=== PATIENT | female | born 1975 | race African-American/Black ===

== ENCOUNTER 2016-07-25 13:46 | Emergency (ER) | payer SELFPAY ==
[2016-07-25] MEDS ORDERED: IBUPROFEN 800 MG TABLET PO ONE (13:53)
[2016-07-25] MEDS ORDERED: ONDANSETRON 4 MG TAB.RAPDIS PO ONE (13:53)
[2016-07-25] MEDS ORDERED: DIPHENHYDRAMINE HCL 25 MG CAPSULE PO ONE (13:53)
--- NOTE | 2016-07-25 13:53 | ER Document Report ---
ED Medical Screen (RME) - General Stated Complaint: HEAD ACHE Mode of Arrival: Ambulatory Information source: Patient Notes: She presents to the emergency department with complaints of headache and vomitingfor 6 days. Denies hx of migraines. Took Excedrin Migraine this morning around 8:00. No history of head injury or trauma. I have greeted and performed a rapid initial assessment of this patient. A comprehensive ED assessment and evaluation of the patient, analysis of test results and completion of the medical decision making process will be conducted by additional ED providers. TRAVEL OUTSIDE OF THE [place] IN LAST 30 DAYS: No - Related Data Allergies/Adverse Reactions: No Known Allergies Allergy (Verified 07/25/16 13:51) Past Medical History GI Medical History: Reports: Hx Gastroesophageal Reflux Disease Musculoskeltal Medical History: Reports Hx Musculoskeletal Trauma - chronic back pain - Immunizations Immunizations up to date: No Hx Diphtheria, Pertussis, Tetanus Vaccination: No - UNKNOWN Physical Exam - Vital signs Vitals: Temp Pulse Resp BP Pulse Ox 98.2 F 70 14 121/83 99 07/25/16 13:50 07/25/16 13:50 07/25/16 13:50 07/25/16 13:50 07/25/16 13:50 Course - Vital Signs Vital signs: Temp Pulse Resp BP Pulse Ox 98.2 F 70 14 121/83 99 07/25/16 13:50 07/25/16 13:50 07/25/16 13:50 07/25/16 13:50 07/25/16 13:50
--- NOTE | 2016-07-25 15:00 | ER Document Report ---
ED Medical Screen (RME) - General Chief Complaint: Headache Stated Complaint: HEAD ACHE Time seen by provider: 14:58 Mode of Arrival: Ambulatory Notes: 40-year-old female presents to ED for headache with nausea vomiting for the last 6 days. She states she has never had a headache like this and she's been taken Excedrin Migraine for the last 3 days with no relief. Denies any history of injury or traumas. She states that the Zofran and Benadryl and ibuprofen she received upfront helped some but she still has a lot of pressure behind her eyes. I have greeted and performed a rapid initial assessment of this patient. A comprehensive ED assessment and evaluation of the patient, analysis of test results and completion of medical decision making process will be conducted by an additional ED providers. TRAVEL OUTSIDE OF THE [place] IN LAST 30 DAYS: No - Related Data Allergies/Adverse Reactions: No Known Allergies Allergy (Verified 07/25/16 13:51) Past Medical History - Social History Chew tobacco use (# tins/day): No Frequency of alcohol use: None Drug Abuse: None Renal/ Medical History: Denies: Hx Peritoneal Dialysis GI Medical History: Reports: Hx Gastroesophageal Reflux Disease Musculoskeltal Medical History: Reports Hx Musculoskeletal Trauma - chronic back pain - Immunizations Immunizations up to date: No Hx Diphtheria, Pertussis, Tetanus Vaccination: No - UNKNOWN Physical Exam - Vital signs Vitals: Temp Pulse Resp BP Pulse Ox 98.2 F 70 14 121/83 99 07/25/16 13:50 07/25/16 13:50 07/25/16 13:50 07/25/16 13:50 07/25/16 13:50 Course - Vital Signs Vital signs: Temp Pulse Resp BP Pulse Ox 98.2 F 70 14 121/83 99 07/25/16 13:50 07/25/16 13:50 07/25/16 13:50 07/25/16 13:50 07/25/16 13:50
--- NOTE | 2016-07-25 15:38 | ER Document Report ---
ED Headache - General Chief Complaint: Headache Stated Complaint: HEAD ACHE Mode of Arrival: Ambulatory Information source: Patient Notes: 40-year-old female presents today with the onset around 6 days ago of a mild frontal "pressure is" headache. She states it has been intermittent, without any aggravating relieving factors. Patient denies any recent trauma, neck pain , blurry vision, weakness or numbness, or fevers. She states she has had some vomiting. Patient states she had a similar episode around 2 years ago that resolved after 3-4 days. Patient does state that she has been going through a lot of stress lately because she is going through a divorce. She is unsure whether this is the cause of her headaches. TRAVEL OUTSIDE OF THE [place] IN LAST 30 DAYS: No - HPI Patient complains to provider of: Headache Patient reports: Other - See above Onset: Other - See above Onset was: Gradual Timing: Still present Quality of pain: Pressure Severity: Moderate Pain Level: 2 Context: denies: Head injury, Meningitis exposure Preceding symptoms: denies: Visual disturbance Associated symptoms: Other - See above Exacerbated by: Light, Noise Similar symptoms previously: No Recently seen / treated by doctor: No - Related Data Allergies/Adverse Reactions: No Known Allergies Allergy (Verified 07/25/16 13:51) Past Medical History - General Information source: Patient - Social History Smoking Status: Never Smoker Chew tobacco use (# tins/day): No Frequency of alcohol use: None Drug Abuse: None Family History: Reviewed & Not Pertinent Patient has suicidal ideation: No Patient has homicidal ideation: No Renal/ Medical History: Denies: Hx Peritoneal Dialysis GI Medical History: Reports: Hx Gastroesophageal Reflux Disease Musculoskeltal Medical History: Reports Hx Musculoskeletal Trauma - chronic back pain Surgical Hx: Negative - Immunizations Immunizations up to date: No Hx Diphtheria, Pertussis, Tetanus Vaccination: No - UNKNOWN Review of Systems - Review of Systems Constitutional: denies: Fever EENT: denies: Eye discharge, Double vision, Nose discharge Cardiovascular: denies: Palpitations Gastrointestinal: Vomiting. denies: Diarrhea Genitourinary: denies: Dysuria Skin: denies: Rash Neurological/Psychological: Other - no slurred speech -: Yes All other systems reviewed and negative Physical Exam - Vital signs Vitals: Temp Pulse Resp BP Pulse Ox 98.2 F 70 14 121/83 99 07/25/16 13:50 07/25/16 13:50 07/25/16 13:50 07/25/16 13:50 07/25/16 13:50 Notes: Reviewed vital signs and nursing note as charted by RN. CONSTITUTIONAL: Alert and oriented and responds appropriately to questions. Well -appearing; well-nourished HEAD: Normocephalic; atraumatic EYES: PERRL; full extraocular range of motion. Pupils are very quickly reactive and the globes are soft. There was no temporal erythema or tenderness. ENT: Normal nose; no rhinorrhea; moist mucous membranes; pharynx without lesions noted NECK: Supple without meningismus; non-tender; no cervical lymphadenopathy, no masses BACK: The back appears normal and is non-tender to palpation, there is no CVA tenderness EXT: Normal ROM in all joints; non-tender to palpation; no cyanosis, no effusions, no edema SKIN: Normal color for age and race; warm; dry; good turgor; capillary refill < 2 seconds; no acute lesions noted NEURO: CN II through XII are intact. Moves all extremities equally; Motor and sensory function intact PSYCH: The patient's mood and manner are appropriate. Grooming and personal hygiene are appropriate. Course - Re-evaluation Re-evalutation: 07/25/16 15:39 Given the history and physical examination with no focal neurological deficits, slow onset of pain, no head trauma, no fevers, with soft globes and very quickly reactive pupils bilaterally, I believe the risk of bacterial meningitis , subarachnoid hemorrhage, or acute angle closure glaucoma to be extremely unlikely. I will obtain a CT scan of the head given no prior imaging and provide anti-headache medications. I will reassess the patient. 07/25/16 16:55 Still no focal neurological deficits. CT scan of the head shows no acute findings. Patient states the headache is much improved. Patient will be discharged home with strict return precautions and follow-up with her primary care provider. - Vital Signs Vital signs: Temp Pulse Resp BP Pulse Ox 98.2 F 70 14 121/83 99 07/25/16 13:50 07/25/16 13:50 07/25/16 13:50 07/25/16 13:50 07/25/16 13:50 Discharge - Discharge Clinical Impression: Headache Qualifiers: Headache type: unspecified Headache chronicity pattern: acute headache Intractability: not intractable Qualified Code(s): R51 - Headache Condition: Good Disposition: HOME, SELF-CARE Additional Instructions: Come back immediately with any return of pain, change in location or quality of pain, blurry vision, weakness or numbness, fevers or vomiting, or any other acute problems. Please follow-up with your primary care physician as we have discussed. Prescriptions: Promethazine HCl [Phenergan 25 mg Tablet] 25 mg PO Q6H PRN #15 tablet PRN Reason:
[2016-07-25 17:36] VITALS: BP 123/67
== END 2016-07-25 17:07 | disposition home or self-care (01) ==
LOC: ER 13:46
DX: R51 Headache (principal); R11.10 Vomiting, unspecified; Z63.0 Problems in relationship with spouse or partner
CPT/HCPCS: 99284; 70450; S0119

== ENCOUNTER 2017-02-16 09:27 | Emergency (ER) | payer SELFPAY ==
[2017-02-16 09:32] VITALS: BP 128/89
--- NOTE | 2017-02-16 09:45 | ER Document Report ---
HPI - HPI Patient complains to provider of: dental pain Pain Level: 5 Context: 41 yo female c/o right lower tooth pain x 3 wk. worse since last night. no facial swelling. no fever Associated Symptoms: None Exacerbated by: Food Relieved by: Denies Similar symptoms previously: Yes Recently seen / treated by doctor: No - ROS Systems Reviewed and Negative: Yes All other systems reviewed and negative - REPRODUCTIVE Reproductive: DENIES: : - DERM Skin Color: Normal Past Medical History - General Information source: Patient - Social History Smoking Status: Current Every Day Smoker Frequency of alcohol use: None Drug Abuse: None Lives with: Family Family History: Reviewed & Not Pertinent - Past Medical History Cardiac Medical History: Reports: Hx Hypertension Renal/ Medical History: Denies: Hx Peritoneal Dialysis GI Medical History: Reports: Hx Gastroesophageal Reflux Disease Musculoskeltal Medical History: Reports Hx Musculoskeletal Trauma - chronic back pain - Immunizations Immunizations up to date: No Hx Diphtheria, Pertussis, Tetanus Vaccination: No - UNKNOWN Vertical Provider Document - CONSTITUTIONAL Agree With Documented VS: Yes Exam Limitations: No Limitations - INFECTION CONTROL TRAVEL OUTSIDE OF THE [place] IN LAST 30 DAYS: No - HEENT HEENT: Atraumatic, PERRLA Mouth Diagram: 1 - pain, no gingival edema, no abscess appreciated - NECK Neck: Normal Inspection, Supple - RESPIRATORY Respiratory: Breath Sounds Normal, No Respiratory Distress O2 Sat by Pulse Oximetry: 100 - CARDIOVASCULAR Cardiovascular: Regular Rate, Regular Rhythm - MUSCULOSKELETAL/EXTREMETIES Musculoskeletal/Extremeties: MAEW - NEURO Level of Consciousness: Awake, Alert, Appropriate - DERM Integumentary: Warm, Dry Course - Re-evaluation Re-evalutation: 02/16/17 09:44 no signs of Chicho's, no abscess, no airway compromise, pt nontoxic. pt stable for discharge and out patient treatment with oral antibiotic and dental follow up - Vital Signs Vital signs: Temp Pulse Resp BP Pulse Ox 82 18 128/89 H 100 02/16/17 09:29 02/16/17 09:29 02/16/17 09:29 02/16/17 09:29 Discharge - Discharge Clinical Impression: Pain, dental Condition: Stable Disposition: HOME, SELF-CARE Instructions: Penicillin V K ([facility]), Toothache ([facility]), Ibuprofen (General) ([facility]) Additional Instructions: take medications as prescribed follow up with dental for further evaluation and treatment Prescriptions: Penicillin V Potassium [Penicillin Vk 500 mg Tablet] 500 mg PO BID #20 tablet
== END 2017-02-16 10:02 | disposition home or self-care (01) ==
LOC: ER 09:27
DX: K08.89 Other specified disorders of teeth and supporting structures (principal); I10 Essential (primary) hypertension; F17.200 Nicotine dependence, unspecified, uncomplicated
CPT/HCPCS: 99282

== ENCOUNTER 2017-05-17 20:43 | Emergency (ER) | payer SELFPAY ==
[2017-05-18] MEDS ORDERED: FAMOTIDINE 20 MG TABLET PO ONE (00:11)
[2017-05-18] MEDS ORDERED: SUCRALFATE 1 GM TABLET PO ONE (00:11)
[2017-05-18] MEDS ORDERED: ONDANSETRON 4 MG TAB.RAPDIS PO ONE (00:11)
[2017-05-18 00:31] LABS: ABSOLUTE EOSINOPHILS # (AUTO) 0.2 10^3/uL (0.0-0.6); ABSOLUTE LYMPHOCYTES (AUTO) 1.6 10^3/uL (0.5-4.7); ABSOLUTE MONOCYTES (AUTO) 0.5 10^3/uL (0.1-1.4); ABSOLUTE NEUT (AUTO) 4.2 10^3/uL (1.7-8.2); BASOPHILS % (AUTO) 0.7 % (0-2); EOSINOPHILS % (AUTO) 3.3 % (0-6); HEMATOCRIT 36.7 % (36.0-47.0); HEMOGLOBIN 12.4 g/dL (12.0-15.5); HGB HCT DIFFERENCE 0.5; LYMPHOCYTES % (AUTO) 25.1 % (13-45); MEAN CORPUSCULAR HEMOGLOBIN 28.1 pg (27.0-33.4); MEAN CORPUSCULAR HGB CONC 33.9 g/dL (32.0-36.0); MEAN CORPUSCULAR VOLUME 83 fl (80-97); MONOCYTES % (AUTO) 7.2 % (3-13); RED BLOOD COUNT 4.42 10^6/uL (3.72-5.28); RED CELL DISTRIBUTION WIDTH 13.9 % (11.5-14.0); SEGMENTED NEUTROPHILS % (AUTO) 63.7 % (42-78); WHITE BLOOD COUNT 6.5 10^3/uL (4.0-10.5)
[2017-05-18 00:43] LABS: ALANINE AMINOTRANSFERASE 26 U/L (9-52); ALKALINE PHOSPHATASE 78 U/L (38-126); ANION GAP 12 (5-19); ASPARTATE AMINO TRANSFERASE 18 U/L (14-36); BILIRUBIN,DIRECT 0.5 mg/dL (0.0-0.4); BILIRUBIN,TOTAL 0.6 mg/dL (0.2-1.3); BLOOD UREA NITROGEN 17 mg/dL (7-20); CALCIUM 9.5 mg/dL (8.4-10.2); CARBON DIOXIDE 25 mmol/L (22-30); CHLORIDE 105 mmol/L (98-107); CREATININE RESULT 0.73 mg/dL (0.52-1.25); GLUCOSE 85 mg/dL (75-110); LIPASE 186.4 U/L (23-300); POTASSIUM 4.6 mmol/L (3.6-5.0); SODIUM 141.5 mmol/L (137-145); TOTAL PROTEIN 7.4 g/dL (6.3-8.2)
[2017-05-18] MEDS ORDERED: KETOROLAC TROMETHAMINE INJ/PF 30 MG/1 ML SDV IV ONE (01:19)
--- NOTE | 2017-05-18 03:01 | RADIOLOGY REPORT (SQ) ---
EXAM DESCRIPTION: U/S ABDOMEN LIMITED W/O DOP CLINICAL HISTORY: epigastric pain COMPARISON: 03/23/2012 TECHNIQUE: Real-time sonographic images of the right upper abdomen were obtained using a curved multihertz transducer. FINDINGS: The visualized portions of the pancreas are unremarkable. The visualized portions of the aorta and IVC are unremarkable. The liver has normal contour and echogenicity. The common bile duct measures 0.4 cm. Hepatopedal flow in the portal vein. Echogenic focus in the gallbladder with posterior shadowing. Normal wall thickness. No pericholecystic fluid identified. Negative reported sonographic Eli sign. The right kidney measures 11.0 cm in length. No hydronephrosis, solid renal mass, or shadowing calculi. IMPRESSION: 1. Cholelithiasis without other sonographic evidence of acute cholecystitis.
--- NOTE | 2017-05-18 03:12 | ER Document Report ---
ED GI/ - General Chief Complaint: Chest Pain Stated Complaint: CHEST PAIN Time Seen by Provider: 05/17/17 23:45 Notes: Patient is a 41-year-old female comes emergency department for chief complaint of upper abdominal pain, intermittent for the past 3 days, she reports some nausea but denies vomiting. She denies fever or chills. She reports normal bowel movements. She denies shortness of breath, she denies pain up in her chest (this was clarified from earlier when she checked in for "chest pain"). She denies any daily medications, surgeries, or known past medical history. TRAVEL OUTSIDE OF THE [place] IN LAST 30 DAYS: No - Related Data Allergies/Adverse Reactions: No Known Allergies Allergy (Verified 02/16/17 09:32) Past Medical History - General Information source: Patient - Social History Smoking Status: Never Smoker Chew tobacco use (# tins/day): No Frequency of alcohol use: None Drug Abuse: None Lives with: Family Family History: Reviewed & Not Pertinent Patient has suicidal ideation: No Patient has homicidal ideation: No Renal/ Medical History: Denies: Hx Peritoneal Dialysis GI Medical History: Reports: Hx Gastroesophageal Reflux Disease Musculoskeltal Medical History: Reports Hx Musculoskeletal Trauma - chronic back pain Surgical Hx: Negative - Immunizations Immunizations up to date: No Hx Diphtheria, Pertussis, Tetanus Vaccination: No - UNKNOWN Review of Systems - Review of Systems Constitutional: No symptoms reported EENT: No symptoms reported Cardiovascular: No symptoms reported Respiratory: No symptoms reported Gastrointestinal: See HPI Genitourinary: No symptoms reported Female Genitourinary: No symptoms reported Musculoskeletal: No symptoms reported Skin: No symptoms reported Hematologic/Lymphatic: No symptoms reported Neurological/Psychological: No symptoms reported Physical Exam - Vital signs Vitals: Temp Pulse Resp BP Pulse Ox 97.7 F 82 22 H 123/77 99 05/17/17 21:19 05/17/17 21:19 05/17/17 21:19 05/17/17 21:19 05/17/17 21:19 Interpretation: Normal - General General appearance: Appears well, Alert In distress: None - HEENT Head: Normocephalic, Atraumatic Eyes: Normal Pupils: PERRL - Respiratory Respiratory status: No respiratory distress Chest status: Nontender Breath sounds: Normal Chest palpation: Normal - Cardiovascular Rhythm: Regular. No: Tachycardia Heart sounds: Normal auscultation, S1 appreciated, S2 appreciated Murmur: No - Abdominal Inspection: Normal Distension: No distension Bowel sounds: Normal Tenderness: Tender - Tenderness noted in the epigastric area with some wincing, benign abdomen otherwise, no rigidity, rebound tenderness, or guarding Organomegaly: No organomegaly - Back Back: Normal, Nontender. No: Tender, CVA tenderness - Extremities General upper extremity: Normal inspection, Nontender, Normal color, Normal ROM , Normal temperature General lower extremity: Normal inspection, Nontender, Normal color, Normal ROM , Normal temperature, Normal weight bearing. No: Laura's sign - Neurological Neuro grossly intact: Yes Cognition: Normal Orientation: AAOx4 Carson Coma Scale Eye Opening: Spontaneous Swan Coma Scale Verbal: Oriented Swan Coma Scale Motor: Obeys Commands Swan Coma Scale Total: 15 Speech: Normal Motor strength normal: LUE, RUE, LLE, RLE Sensory: Normal - Psychological Associated symptoms: Normal affect, Normal mood - Skin Skin Temperature: Warm Skin Moisture: Dry Skin Color: Normal Course - Re-evaluation Re-evalutation: CBC, chemistry, lipase unremarkable. HCG is negative. Patient with persistent discomfort after Carafate, Zofran, Pepcid. She does have epigastric tenderness on examination although she does not have guarding to the area. Remaining abdomen is unremarkable. Vital signs unremarkable. She is generally well- appearing. Ultrasound showing cholelithiasis without evidence of cholecystitis, normal ducts, no other abnormality. Patient was given Toradol 50 mg IV, after this symptoms resolved. She states she feels much better. I discussed her workup in detail. She states she would like to go home now, she does want a referral to the surgical clinic, she will also be provided with medication for this. Discussed recommendations, discussed return precautions in detail with patient. Patient states understanding and agreement. - Vital Signs Vital signs: Temp Pulse Resp BP Pulse Ox 98.1 F 80 18 117/86 H 98 05/18/17 03:43 05/18/17 03:43 05/18/17 03:43 05/18/17 03:43 05/18/17 03:43 - Laboratory Result Diagrams: 05/18/17 00:00 05/18/17 00:00 Laboratory results interpreted by me: 05/18/17 00:00 Direct Bilirubin 0.5 H Discharge - Discharge Clinical Impression: Upper abdominal pain Cholelithiasis Qualifiers: Cholelithiasis location: gallbladder Cholecystitis presence: with cholecystitis Cholecystitis acuity: unspecified acuity Biliary obstruction: without biliary obstruction Qualified Code(s): K80.00 - Calculus of gallbladder with acute cholecystitis without obstruction Condition: Stable Disposition: HOME, SELF-CARE Additional Instructions: Your symptoms appear to be coming from your gallbladder which has gallstones in it. Avoid fatty foods, eat bland diet Take the prescribed Toradol and Pepcid if needed for upper abdominal pain. Follow-up with the office referral listed call them to make your appointment. Return to emergency department for any concerning or worsening symptoms including return or worsening pain, uncontrolled vomiting, fever, or any other concerning symptoms. Prescriptions: Ketorolac Tromethamine [Toradol 10 mg Tablet] 10 mg PO Q8HP PRN #30 tablet PRN Reason: Famotidine [Pepcid 20 mg Tablet] 20 mg PO BID #20 tablet Referrals: [facility] [Provider Group] - Follow up as needed
[2017-05-18 03:44] VITALS: BP 117/86
--- NOTE | 2017-05-18 09:20 | EKG REPORT ---
SEVERITY:- NORMAL ECG - SINUS RHYTHM : Confirmed by: Satish Rod 18-May-2017 09:19:57
== END 2017-05-18 03:44 | disposition home or self-care (01) ==
LOC: ER 20:43
DX: R10.10 Upper abdominal pain, unspecified (principal); K80.00 Calculus of gallbladder with acute cholecystitis without obstruction; R07.9 Chest pain, unspecified; R11.0 Nausea
CPT/HCPCS: 93005; 99285; 96374; 36415; 83690; 84703; 85025; 80053; 76705; 93010; S0119; J1885

== ENCOUNTER 2017-05-31 09:11 | Observation (INO) | payer SELFPAY ==
[2017-05-31] MEDS ORDERED: METOCLOPRAMIDE HCL ORAL SOLN 10 MG/10 ML UDCUP PO ONE (09:35)
[2017-05-31] MEDS ORDERED: MAG HYDROX/AL HYDROX/SIMETH SUSP 30 ML UDCUP PO ONE (09:35)
[2017-05-31] MEDS ORDERED: LIDOCAINE 2% VISCOUS SOLN 20 ML UDCUP PO ONE (09:35)
[2017-05-31] MEDS ORDERED: MORPHINE SULFATE 10 MG/ML INJ IV ONE (10:46)
[2017-05-31 10:52] LABS: ABSOLUTE EOSINOPHILS # (AUTO) 0.2 10^3/uL (0.0-0.6); ABSOLUTE LYMPHOCYTES (AUTO) 1.1 10^3/uL (0.5-4.7); ABSOLUTE MONOCYTES (AUTO) 0.3 10^3/uL (0.1-1.4); ABSOLUTE NEUT (AUTO) 2.6 10^3/uL (1.7-8.2); BASOPHILS % (AUTO) 0.6 % (0-2); EOSINOPHILS % (AUTO) 4.1 % (0-6); HEMATOCRIT 37.3 % (36.0-47.0); HEMOGLOBIN 12.5 g/dL (12.0-15.5); HGB HCT DIFFERENCE 0.2; LYMPHOCYTES % (AUTO) 26.1 % (13-45); MEAN CORPUSCULAR HEMOGLOBIN 27.7 pg (27.0-33.4); MEAN CORPUSCULAR HGB CONC 33.5 g/dL (32.0-36.0); MEAN CORPUSCULAR VOLUME 83 fl (80-97); MONOCYTES % (AUTO) 7.7 % (3-13); RED BLOOD COUNT 4.51 10^6/uL (3.72-5.28); RED CELL DISTRIBUTION WIDTH 13.7 % (11.5-14.0); SEGMENTED NEUTROPHILS % (AUTO) 61.5 % (42-78); WHITE BLOOD COUNT 4.2 10^3/uL (4.0-10.5)
[2017-05-31 11:07] LABS: ALANINE AMINOTRANSFERASE 24 U/L (9-52); ALBUMIN 3.8 g/dL (3.5-5.0); ALKALINE PHOSPHATASE 78 U/L (38-126); ANION GAP 12 (5-19); ASPARTATE AMINO TRANSFERASE 15 U/L (14-36); BILIRUBIN,DIRECT 0.2 mg/dL (0.0-0.4); BILIRUBIN,TOTAL 0.4 mg/dL (0.2-1.3); BLOOD UREA NITROGEN 9 mg/dL (7-20); CALCIUM 9.5 mg/dL (8.4-10.2); CARBON DIOXIDE 26 mmol/L (22-30); CHLORIDE 104 mmol/L (98-107); CREATININE RESULT 0.62 mg/dL (0.52-1.25); GLUCOSE 67 mg/dL (75-110); SODIUM 141.8 mmol/L (137-145); TOTAL PROTEIN 6.8 g/dL (6.3-8.2)
--- NOTE | 2017-05-31 13:59 | ER Document Report ---
ED General - General Chief Complaint: Nausea/Vomiting Stated Complaint: POSSIBLE HEARTBURN Time Seen by Provider: 05/31/17 09:35 Mode of Arrival: Ambulatory Information source: Patient Notes: 41-year-old female who was diagnosed with gallstones on prior visit 2 weeks ago and was offered surgery at that time presents with complaints of abdominal pain. Patient denies any fevers or chills admits to nausea. Patient notes the pain is worse in the epigastric region TRAVEL OUTSIDE OF THE [place] IN LAST 30 DAYS: No - HPI Onset: Other - For a few months worsened over the past month Onset/Duration: Intermittent, Waxing and waning, Worse Quality of pain: Sharp Severity: Mild Pain Level: 2 Associated symptoms: Nausea Exacerbated by: Food Relieved by: Denies Similar symptoms previously: Yes Recently seen / treated by doctor: Yes - Related Data Allergies/Adverse Reactions: No Known Allergies Allergy (Verified 05/31/17 09:12) Home Medications: Current Home Medications Diphenhydramine HCl [Benadryl] 25 mg PO QHS 05/31/17 [History] Phentermine HCl 37.5 mg PO DAILY 05/31/17 [History] Past Medical History - Social History Smoking Status: Never Smoker Cigarette use (# per day): No Chew tobacco use (# tins/day): No Smoking Education Provided: No Frequency of alcohol use: None Drug Abuse: None Family History: Reviewed & Not Pertinent Patient has suicidal ideation: No Patient has homicidal ideation: No - Past Medical History Cardiac Medical History: Reports: Hx Hypertension Renal/ Medical History: Denies: Hx Peritoneal Dialysis GI Medical History: Reports: Hx Gastroesophageal Reflux Disease Musculoskeltal Medical History: Reports Hx Musculoskeletal Trauma - chronic back pain - Immunizations Immunizations up to date: No Hx Diphtheria, Pertussis, Tetanus Vaccination: No - UNKNOWN Review of Systems - Review of Systems Notes: REVIEW OF SYSTEMS: CONSTITUTIONAL : Denies fever, chills, or sweats. Denies recent illness. EENT: Denies eye, ear, throat, or mouth pain or symptoms. Denies nasal or sinus congestion or discharge. Denies throat, tongue, or mouth swelling or difficulty swallowing. CARDIOVASCULAR: Denies chest pain. Denies palpitations or racing or irregular heart beat. Denies ankle edema. RESPIRATORY: Denies cough, cold, or chest congestion. Denies shortness of breath, difficulty breathing, or wheezing. GASTROINTESTINAL: Admits to abdominal pain nausea GENITOURINARY: Denies difficulty urinating, painful urination, burning, frequency, blood in urine, or discharge. MUSCULOSKELETAL: Denies back or neck pain or stiffness. Denies joint pain or swelling. SKIN: Denies rash, lesions or sores. HEMATOLOGIC : Denies easy bruising or bleeding. LYMPHATIC: Denies swollen, enlarged glands. NEUROLOGICAL: Denies confusion or altered mental status. Denies passing out or loss of consciousness. Denies dizziness or lightheadedness. Denies headache. Denies weakness or paralysis or loss of use of either side. Denies problems with gait or speech. Denies sensory loss, numbness, or tingling. Denies seizures. PSYCHIATRIC: Denies anxiety or stress. Denies depression, suicidal ideation, or homicidal ideation. ALL OTHER SYSTEMS REVIEWED AND NEGATIVE. Dictation was performed using [employer] voice recognition software PHYSICAL EXAMINATION: GENERAL: Well-appearing, well-nourished and in no acute distress. HEAD: Atraumatic, normocephalic. EYES: Pupils equal round and reactive to light, extraocular movements intact, sclera anicteric, conjunctiva are normal. ENT: Nares patent, oropharynx clear without exudates. Moist mucous membranes. NECK: Normal range of motion, supple without lymphadenopathy LUNGS: Breath sounds clear to auscultation bilaterally and equal. No wheezes rales or rhonchi. HEART: Regular rate and rhythm without murmurs ABDOMEN: Soft, tender in the right upper quadrant epigastric region with mild guarding Musculoskeletal: Normal range of motion, no pitting or edema. No cyanosis. NEUROLOGICAL: Cranial nerves grossly intact. Normal speech, normal gait. Normal sensory, motor exams PSYCH: Normal mood, normal affect. SKIN: Warm, Dry, normal turgor, no rashes or lesions noted. Physical Exam - Vital signs Vitals: Temp Pulse Resp BP Pulse Ox 98.6 F 87 18 116/68 100 05/31/17 09:24 05/31/17 09:24 05/31/17 09:24 05/31/17 09:24 05/31/17 09:24 Course - Re-evaluation Re-evalutation: 05/31/17 17:03 On evaluation patient's in no distress, ultrasound was performed which does note a stone in the neck of the gallbladder. Her lab work looks quite benign the patient will be admitted to the surgeon for surgery tomorrow - Vital Signs Vital signs: Temp Pulse Resp BP Pulse Ox 97.5 F 87 17 107/62 100 05/31/17 13:37 05/31/17 09:24 05/31/17 13:37 05/31/17 13:37 05/31/17 09:24 - Laboratory Result Diagrams: 05/31/17 10:40 05/31/17 10:40 Laboratory results interpreted by me: 05/31/17 10:40 Glucose 67 L - Diagnostic Test Radiology reviewed: Image reviewed, Reports reviewed Discharge - Discharge Clinical Impression: Gallbladder disease Condition: Stable Disposition: ADMITTED INPATIENT Admitting Provider: Surgicalist Unit Admitted: Surgical Floor
--- NOTE | 2017-05-31 14:21 | RADIOLOGY REPORT (SQ) ---
EXAM DESCRIPTION: U/S ABDOMEN LIMITED W/O DOP COMPLETED DATE/TIME: 05/31/2017 1:42 pm REASON FOR STUDY: epigastric pain COMPARISON: Abdominal ultrasound 03/23/2012, 05/18/2017 TECHNIQUE: Dynamic and static grayscale images acquired of the abdomen and recorded on PACS. Additio nal selected color Doppler and spectral images recorded. LIMITATIONS: None. FINDINGS: PANCREAS: Midline pancreas unremarkable LIVER: No masses. Echotexture normal. LIVER VASCULATURE: Normal directional flow of the main portal vein and hepatic veins. GALLBLADDER: A 1.3 cm shadowing stone is present in the gallbladder neck. Remainder the gallbladder is distended without wall thickening or pericholecystic fluid. ULTRASOUND-DETECTED ELI'S SIGN: Equivocal INTRAHEPATIC DUCTS AND COMMON DUCT: CBD and intrahepatic ducts normal caliber. No filling defects. INFERIOR VENA CAVA: Normal flow. AORTA: No aneurysm. RIGHT KIDNEY: Normal size. Normal echogenicity. No solid or suspicious masses. No hydronephrosis. No calcifications. PERITONEAL AND RIGHT PLEURAL SPACE: No ascites or effusions. OTHER: No other significant findings. IMPRESSION: 1.3 cm stone in the gallbladder neck. Equivocal sonographic Eli's sign TECHNICAL DOCUMENTATION: JOB ID: [id number] [employer]- All Rights Reserved
[2017-05-31] MEDS ORDERED: PIPERACILLIN/TAZOBACTAM 3.375 GM VIAL IV ONE (14:34)
[2017-05-31] MEDS: NORMAL SALINE 1000 ML 1,000 ML IV PRN ×3 (14:51→17:31)
--- NOTE | 2017-05-31 15:47 | PDOC H&P ---
History of Present Illness Admission Date/PCP: 05/31/17 14:54 Patient complains of: Complains of a one-month history of epigastric and right upper quadrant pain, that radiates to the back with associated nausea and vomiting. Was seen on May 17, and this ER complaining of a two-week history of the above symptoms. Patient was given medication for GERD, but an ultrasound was also scheduled, which revealed a stone in the neck of the gallbladder. Surgery was recommended to the patient, but she was afraid to undergo a surgical procedure. However, she began experiencing upper abdominal pain this morning, that was 10 out of 10, and was associated with vomiting 2. For this reason, patient has come to the hospital, and will now be admitted. History of Present Illness: NICOLA KITCHEN is a 41 year old female Past Medical History Cardiac Medical History: Reports: Hypertension GI Medical History: Reports: Gastroesophageal Reflux Disease Social History Smoking Status: Never Smoker Family History Family History: Reviewed & Not Pertinent Parental Family History Reviewed: No Children Family History Reviewed: No Sibling(s) Family History Reviewed.: No Medication/Allergy Home Medications: Diphenhydramine HCl [Benadryl] 25 mg PO QHS 05/31/17 Phentermine HCl 37.5 mg PO DAILY 05/31/17 Allergies/Adverse Reactions: No Known Allergies Allergy (Verified 05/31/17 09:12) Physical Exam Vital Signs: Temp Pulse Resp BP Pulse Ox 97.5 F 87 17 107/62 100 05/31/17 13:37 05/31/17 09:24 05/31/17 13:37 05/31/17 13:37 05/31/17 09:24 General appearance: PRESENT: no acute distress, cooperative, well-developed, well-nourished Head exam: PRESENT: atraumatic, normocephalic Eye exam: PRESENT: conjunctiva pink Mouth exam: PRESENT: moist, neck supple Neck exam: PRESENT: full ROM. ABSENT: JVD, lymphadenopathy, tenderness, thyromegaly, tracheal deviation Respiratory exam: PRESENT: clear to auscultation guerita, symmetrical, unlabored Cardiovascular exam: PRESENT: RRR. ABSENT: tachycardia GI/Abdominal exam: PRESENT: firm, tenderness - RUQ/Epigastric tenderness 2/4. ABSENT: guarding Rectal exam: PRESENT: deferred Extremities exam: ABSENT: calf tenderness Results Impressions: Abdomen Ultrasound 05/31/17 10:46 IMPRESSION: 1.3 cm stone in the gallbladder neck. Equivocal sonographic Eli's sign Assessment & Plan - Plan Summary Plan Summary: Patient will be scheduled for laparoscopic cholecystectomy in the a.m.
[2017-05-31] MEDS ORDERED: ENOXAPARIN SODIUM INJ 40 MG/0.4 ML DISP.SYRIN SUBCUT ONE (17:00)
[2017-05-31] MEDS: MORPHINE SULFATE 10 MG/ML INJ IV PRN ×2 (17:32→23:21)
--- NOTE | 2017-05-31 20:58 | EKG REPORT ---
SEVERITY:- NORMAL ECG - SINUS RHYTHM : Confirmed by: Alexander Wilson MD 31-May-2017 14:24:32
[2017-05-31] MEDS: ONDANSETRON HCL INJ/PF 4 MG/2 ML SDV IV PRN (23:21)
[2017-05-31] MEDS: CEFAZOLIN 2 GM/D5W RTU 2 GM/50 ML RTUPB IV SCH (23:23)
[2017-06-01] MEDS: ONDANSETRON HCL INJ/PF 4 MG/2 ML SDV IV PRN ×3 (04:05→19:45)
[2017-06-01] MEDS: MORPHINE SULFATE 10 MG/ML INJ IV PRN ×4 (04:05→23:53)
[2017-06-01] MEDS: NORMAL SALINE 1000 ML 1,000 ML IV PRN (04:11)
[2017-06-01] MEDS: CEFAZOLIN 2 GM/D5W RTU 2 GM/50 ML RTUPB IV SCH ×4 (05:16→23:48)
[2017-06-01] MEDS ORDERED: HYDROMORPHONE HCL INJ/PF 2 MG/ML AMPULE ONE (08:28)
[2017-06-01] MEDS ORDERED: FENTANYL CITRATE INJ/PF 100 MCG/2 ML AMPUL ONE ×2 (08:28→10:52)
[2017-06-01] MEDS ORDERED: MIDAZOLAM 2 MG/2 ML INJ ONE (08:28)
[2017-06-01] MEDS ORDERED: PROPOFOL INJ 200 MG/20 ML VIAL IV ONE (08:29)
[2017-06-01] MEDS ORDERED: ACETAMINOPHEN 100 ML IV ONE (08:29)
[2017-06-01] MEDS ORDERED: BUPIVACAINE HCL 0.5 % INJ/PF 30 ML SDV ONE (09:17)
[2017-06-01] MEDS ORDERED: ONDANSETRON HCL INJ/PF 4 MG/2 ML SDV IV PRN (09:32)
[2017-06-01] MEDS ORDERED: PROMETHAZINE HCL INJ 25 MG/1 ML VIAL IV PRN ×2 (09:32)
[2017-06-01] MEDS ORDERED: MEPERIDINE HCL/PF INJ 25 MG/1 ML DISP.SYRIN IV PRN (09:32)
[2017-06-01] MEDS ORDERED: FENTANYL CITRATE INJ/PF 100 MCG/2 ML AMPUL IV PRN ×3 (09:32)
[2017-06-01] MEDS ORDERED: DIPHENHYDRAMINE HCL 50 MG/ML VIAL IV PRN (09:32)
--- NOTE | 2017-06-01 10:27 | Brief Operative Note ---
BRIEF OPERATIVE REPORT DATE OF SURGERY: 06/01/17 TIME OF SURGERY: 09:30 PREOPERATIVE DIAGNOSIS: Cholelithiasis with biliary colic POSTOPERATIVE DIAGNOSIS: Same SURGEON: LAURYN FARR 1ST [employer] CAPTAIN: LALO YAP FINDINGS: Cholelithiasis COMPLICATIONS: None ESTIMATED BLOOD LOSS: 5cc TISSUE REMOVED OR ALTERED: Gallbladder TECHNICAL PROCEDURE: See dictation
[2017-06-01] MEDS ORDERED: KETOROLAC TROMETHAMINE INJ/PF 30 MG/1 ML SDV ONE (10:52)
--- NOTE | 2017-06-01 11:38 | OPERATIVE REPORT E ---
Operative Report NAME: NICOLA KITCHEN : 1975 AGE: 41Y DATE OF SURGERY: 06/01/2017 ROOM: 529 PREOPERATIVE DIAGNOSIS: Cholelithiasis with biliary colic. POSTOPERATIVE DIAGNOSIS: Cholelithiasis with biliary colic. OPERATION: Laparoscopic cholecystectomy. SURGEON: LAURYN FARR M.D. ANESTHESIA: General. REPLACEMENT: Crystalloid. DRAINS: None. COMPLICATIONS: None. CONDITIONS: Stable. FINDINGS: The patient had a small stone stuck in the neck in the gallbladder. INDICATIONS FOR PROCEDURE: This 41-year-old female from [facility] [place] the [place] presents with abdominal pain secondary to her cholelithiasis with a stone stuck in the neck of the gallbladder. The patient was seen in the emergency room a couple of weeks ago, where she was seen for the same pain. The patient was placed on GERD medication and underwent an ultrasound subsequently, which revealed stone in the gallbladder. The patient did not want surgery at that time as she was frightened of the prospect, but continued to have pain. On the day of the admission, she sought relief in our ER. The patient was admitted to my service and now comes to the OR for definitive intervention. PROCEDURE: The patient was brought to operating suite and placed in the supine position on the operating table. Monitoring devices were attached. IV sedation was administered followed by the induction of general endotracheal anesthesia. The patient's abdomen was prepped and draped in the usual sterile manner, then a timeout was achieved. Once all concurred, local anesthesia was injected just below the umbilicus. We then made an incision through skin and subcutaneous tissue to the linea alba. Two #0-Vicryl stay sutures were placed in the linea alba and incision was made between the two stay sutures. Through this incision, we grasped the peritoneum with 2 Hemostats and made an incision between the 2 Hemostats and entered the abdominal cavity. Digital exploration was done to ensure there were no viscera adherent to the anterior abdominal wall. We then inserted our Vega trocar and secured with 2-0 Vicryl stay sutures and insufflated the abdomen with CO2. Once adequate pressures of 60 mmHg were reached, we inserted laparoscopic camera and light source and surveyed the abdominal cavity and there was no evidence of any bleeding or injuries. We then placed the remaining 3 trocars in the usual anatomical positions and we visualized the gallbladder and grasped the fundus of the gallbladder and pushed the gallbladder superiorly over the liver. We then grasped the infundibulum of the gallbladder and retracted it laterally, opening up Calot's triangle. We isolated and skeletonized the cystic duct and cystic artery. After skeletonizing the cystic duct and cystic artery, each was Hemo-clipped close to the gallbladder and divided close to the gallbladder. Once both structures were Hemo-clipped, we then dissected the gallbladder off the liver using the reticulating scissors and cautery. Once the gallbladder was detached from the gallbladder bed, it was placed in an Endo-Bag and removed from the abdominal cavity. We inspected the gallbladder bed. There was no evidence of any bleeding. We irrigated the area with normal saline and then proceeded to place our #0-Vicryl tie at the upper abdominal trocar site using the Khoa-Aviles device. One this was done, we then removed all trocars under direct vision and decompressed the abdomen. Once the abdomen was completely decompressed, we approximated the infraumbilical fascial incision using #0-Vicryl continuous suture and then all incisions were closed using subcuticular closure. The patient tolerated the procedure well. Sponge and instrument counts were correct and the patient was transferred to the PACU in stable condition. DICTATING PHYSICIAN: LAURYN FARR M.D. [id number] PHY#: [id number] ID: [id number] JOB#: [id number] ACCT: [id number] cc:LAURYN FARR M.D. >
[2017-06-01] MEDS: ENOXAPARIN SODIUM INJ 40 MG/0.4 ML DISP.SYRIN SUBCUT SCH (11:39)
[2017-06-01] MEDS: DEXTROSE 5%-LACTATED RINGERS 1,000 ML IV PRN (12:06)
[2017-06-01] MEDS ORDERED: SUCCINYLCHOLINE CHLORIDE INJ 200 MG/10 ML VIAL ONE (14:35)
[2017-06-01] MEDS ORDERED: GLYCOPYRROLATE INJ 0.4 MG/2 ML VIAL ONE (14:35)
[2017-06-01] MEDS ORDERED: LIDOCAINE 2% INJ-PF (20 MG/ML) 2 ML AMPUL ONE ×2 (14:35→14:37)
[2017-06-01] MEDS ORDERED: ONDANSETRON HCL INJ/PF 4 MG/2 ML SDV ONE (14:35)
[2017-06-01] MEDS ORDERED: ROCURONIUM BROMIDE INJ 50 MG/5 ML VIAL IV ONE (14:35)
[2017-06-01] MEDS ORDERED: NEOSTIGMINE METHYLSULFATE 10 MG/10 ML VIAL ONE (14:35)
[2017-06-01] MEDS ORDERED: METOCLOPRAMIDE HCL INJ/PF 10 MG/2 ML SDV ONE (14:35)
[2017-06-01] MEDS ORDERED: DEXAMETHASONE SOD PHOSPHATE INJ 4 MG/1 ML VIAL ONE (14:35)
[2017-06-01] MEDS: OXYCODONE-ACETAMINOPHEN 5-325 MG TABLET PO PRN (18:54)
[2017-06-02] MEDS: DEXTROSE 5%-LACTATED RINGERS 1,000 ML IV PRN ×2 (00:59→11:40)
[2017-06-02] MEDS: CEFAZOLIN 2 GM/D5W RTU 2 GM/50 ML RTUPB IV SCH ×2 (06:26→11:36)
[2017-06-02] MEDS: MORPHINE SULFATE 10 MG/ML INJ IV PRN (07:51)
[2017-06-02] MEDS: ENOXAPARIN SODIUM INJ 40 MG/0.4 ML DISP.SYRIN SUBCUT SCH (09:30)
--- NOTE | 2017-06-02 09:41 | DISCHARGE SUMMARY E ---
Discharge Summary NAME: NICOLA KITCHEN : 1975 AGE: 41Y ADMITTED: 05/31/2017 DISCHARGED: 06/02/2017 FINAL DIAGNOSIS: Status post laparoscopic cholecystectomy for cholelithiasis. HOSPITAL SUMMARY: This 41-year-old female from [facility], presented to the hospital with several-day history of right upper quadrant pain radiating to the back. The patient as seen in the ER about 2 weeks for the same symptoms and was sent home on GERD medication, but had an ultrasound as outpatient, which revealed a stone in the neck of the gallbladder. The patient was nervous about surgery and delayed seeking help, but on May 31 when the pain was unbearable, she presented to the emergency with right upper quadrant pain, tenderness and guarding. The patient was admitted to my service and was taken to the operating room on June 01, where she underwent an uneventful laparoscopic cholecystectomy. The patient's postop course was uneventful. She is tolerating a diet. She has been up and about. The patient will be discharged home later today. The patient is encouraged to ambulate and will followed up in the [facility] in 7-10 days. DICTATING PHYSICIAN: LAURYN FARR M.D. [id number] PHY#: [id number] ID: [id number] JOB#: [id number] ACCT: [id number] cc:LAURYN FARR M.D. [facility],
[2017-06-02] MEDS: OXYCODONE-ACETAMINOPHEN 5-325 MG TABLET PO PRN (11:47)
[2017-06-02] MEDS ORDERED: OXYCODONE-ACETAMINOPHEN 5-325 MG TABLET PO PRN (12:30)
[2017-06-02 14:44] VITALS: BP 123/74
== END 2017-06-02 15:15 | disposition home or self-care (01) ==
LOC: ER 09:11 → EH 14:54 → INTOOBSV 14:54 → 5 17:13
PROVIDERS: ATTEND Surgery
PROC: 0FT44ZZ Resection of Gallbladder, Percutaneous Endoscopic Approach (ICD-10-PCS; principal; 2017-06-01 09:00)
DX: K80.10 Calculus of gallbladder with chronic cholecystitis without obstruction (principal)
CPT/HCPCS: 93005; 99285; 96374; 36415; 83690; 84703; 85025; 80053; 88304 ×2; 76705; 93010; 47562; G0378 ×4; J2250; J3490 ×3; J1100; J3010; J1885; J2765; J2270 ×3; J1650; J1170; J0330; J2405 ×2; J7030 ×2; J2704; J0690 ×3; J2543; J0131; 790

== ENCOUNTER 2017-06-05 10:46 | Emergency (ER) | payer SELFPAY ==
[2017-06-05] MEDS ORDERED: ONDANSETRON HCL INJ/PF 4 MG/2 ML SDV IV ONE (11:01)
[2017-06-05] MEDS ORDERED: MORPHINE SULFATE 10 MG/ML INJ IV ONE (11:01)
--- NOTE | 2017-06-05 11:07 | ER Document Report ---
ED General - General Stated Complaint: ABDOMINAL PAIN Time Seen by Provider: 06/05/17 10:50 TRAVEL OUTSIDE OF THE [place] IN LAST 30 DAYS: No - HPI Notes: 41 years old female cholecystectomy done 8 days ago, went for follow-up today at the surgical center. While she was waiting apparently she fell down. The reason for her visit there was abdominal pain and constipated for 7 days. Had no bowel movement at all. She denied any head injury. Denies any current headache or focal weakness numbness tingling sensation. Denied any fever chills or other constitutional symptoms. Denies any nausea vomiting dysuria or frequency. - Related Data Allergies/Adverse Reactions: No Known Allergies Allergy (Verified 05/31/17 09:12) Past Medical History - General Information source: Patient - Social History Smoking Status: Never Smoker Family History: Reviewed & Not Pertinent - Past Medical History Cardiac Medical History: Reports: Hx Hypertension Renal/ Medical History: Denies: Hx Peritoneal Dialysis GI Medical History: Reports: Hx Gastroesophageal Reflux Disease Musculoskeltal Medical History: Reports Hx Musculoskeletal Trauma - chronic back pain Psychiatric Medical History: Denies: Hx Depression - Immunizations Immunizations up to date: No Hx Diphtheria, Pertussis, Tetanus Vaccination: No - UNKNOWN Review of Systems - Review of Systems Notes: Review of system otherwise unremarkable Constitutional: No symptoms reported. denies: See HPI, Chills, Diaphoresis, Fever, Malaise, Weakness, Other, Weight gain, Weight loss, Recent illness EENT: No symptoms reported, See HPI. denies: Eye pain, Eye discharge, Blurred vision, Tearing, Double vision, Ear pain, Ear discharge, Nose pain, Nose congestion, Nose discharge, Sinus pressure, Sinus discharge, Throat pain, Difficulty swallowing, Throat swelling, Mouth pain, Mouth swelling, Dental problem, Vertigo, Other Cardiovascular: No symptoms reported. denies: See HPI, Chest pain, Palpitations , Heart racing, Orthopnea, Dyspnea, Syncope, Dizziness, Lightheaded, Edema, Other, Paroxysmal Nocturnal Dysp Respiratory: No symptoms reported. denies: See HPI, Cough, Hurts to breathe, Hemoptysis, Short of breath, Sputum, Stridor, Wheezing, Other Gastrointestinal: See HPI Physical Exam - Notes Notes: General exam: Alert oriented 3, appears well, not in any acute distress, body habitus------. HEENT: Normocephalic atraumatic pupils were equal reactive to light extraocular muscles were within normal range. Neck is supple no JVD no lymphadenopathy. Oral mucosa-not erythematous, no lesions noted no tonsillar enlargement. Chest no lesions, nontraumatic, nontender. No deformity Lungs: Bilaterally clear breath sounds no rales or wheezing, no adventitial sounds, no dullness on percussion. Cardiovascular system: Normal S1-S2 no murmurs, no gallop. Regular rhythm. No peripheral edema over the lower extremities. Gastrointestinal: Normal appearance postsurgical left abdomen with surgical scar , diffuse mild tenderness,, positive bowel sounds in all 4 quadrants, no Hepatosplenomegaly, no obvious masses, no obvious abdominal bruit. No horseshoe dullness. Inguinal region: No masses or obvious inguinal hernia noted Genitourinary: Rectal exam: Nervous system: Alert oriented 3, no cranial nerve weakness, no focal neurological deficit noted. Sensation is intact over the lower extremities for pain and touch. Reflexes are 2+ over both patella. Upper extremities: No trauma as noted, normal range of motion for both shoulders , elbows and wrist. Lower extremity: No traumas or deformities noted, normal range of motion for flexion extension abduction abduction of both hip joints, Normal flexion and extension of knee joint. Normal range of motion for plantarflexion dorsiflexion and eversion inversion for both ankles. Skin: No erythema, no edema, no obvious lesions noted not in any acute distress Course - Laboratory Result Diagrams: 06/05/17 11:25 06/05/17 11:25 - Diagnostic Test Radiology results interpreted by me: 06/05/17 15:21 Diagnostic report text EXAM DESCRIPTION: CT ABD/PELVIS WITH IV ONLY COMPLETED DATE/TIME: 06/05/2017 11:49 am REASON FOR STUDY: Acute abdominal pain COMPARISON: None. TECHNIQUE: CT scan of the abdomen and pelvis performed using helical scanning technique with dynamic intravenous contrast injection. No oral contrast. Images reviewed with lung, soft tissue, and bone windows. Reconstructed coronal and sagittal MPR images reviewed. Delayed images for evaluation of the urinary system also acquired. All images stored on PACS. All CT scanners at this facility use dose modulation, iterative reconstruction, and/or weight based dosing when appropriate to reduce radiation dose to as low as reasonably achievable (ALARA). [facility]: Dose Right [facility]: CareDose [facility]: Dose Right [facility]: Teradose 4D [facility]: BioTheryX CONTRAST TYPE AND DOSE: contrast/concentration: Isovue 370.00 mg/ml; Total Contrast Delivered: 100.0 ml; Total Saline Delivered: 72.0 ml RENAL FUNCTION: BUN 9 creatinine 0.62. RADIATION DOSE: . LIMITATIONS: None. FINDINGS: LOWER CHEST: Scattered basilar atelectasis/scarring. LIVER: Normal size. No masses. No dilated ducts. SPLEEN: Normal size. No focal lesions. PANCREAS: No masses. No significant calcifications. No adjacent inflammation or peripancreatic fluid collections. Pancreatic duct not dilated. GALLBLADDER: Surgically absent. ADRENAL GLANDS: No significant masses or asymmetry. RIGHT KIDNEY AND URETER: No solid masses. No significant calcifications. No hydronephrosis or hydroureter. LEFT KIDNEY AND URETER: No solid masses. No significant calcifications. No hydronephrosis or hydroureter. AORTA AND VESSELS: No aneurysm. No dissection. Renal arteries, SMA, celiac without stenosis. RETROPERITONEUM: No retroperitoneal adenopathy, hemorrhage or masses. BOWEL AND PERITONEAL CAVITY: No masses or inflammatory changes. No free fluid or peritoneal masses. APPENDIX: Normal. PELVIS: No mass. No free fluid. Normal bladder. ABDOMINAL WALL: No masses. No hernias. Mild streaky change in the subcutaneous fat secondary to recent surgery. BONES: No significant or acute findings. OTHER: No other significant finding. IMPRESSION: RECENT CHOLECYSTECTOMY. NO SIGNIFICANT OR ACUTE FINDING IN THE ABDOMEN OR PELVIS ON CT SCAN WITH IV CONTRAST. TECHNICAL DOCUMENTATION: JOB ID: [id number] Quality ID # [id number]: Final reports with documentation of one or more dose reduction techniques (e.g., Automated exposure control, adjustment of the mA and/or kV according to patient size, use of iterative reconstruction technique) 2010 [employer]- All Rights Reserved Dictated by: BEAU BROTHERS MD [id number] CC: AMBERLY TEJEDA MD > Discharge - Discharge Clinical Impression: Postoperative pain, Constipation by delayed colonic transit Abdominal pain Qualifiers: Abdominal location: generalized Qualified Code(s): R10.84 - Generalized abdominal pain Condition: Fair Disposition: HOME, SELF-CARE Instructions: Bulk Laxatives, Abdominal Pain ([facility]) Prescriptions: Lactulose 20 gm PO BID #120 ml
[2017-06-05 11:46] LABS: ABSOLUTE EOSINOPHILS # (AUTO) 0.2 10^3/uL (0.0-0.6); ABSOLUTE LYMPHOCYTES (AUTO) 1.2 10^3/uL (0.5-4.7); ABSOLUTE MONOCYTES (AUTO) 0.4 10^3/uL (0.1-1.4); ABSOLUTE NEUT (AUTO) 3.7 10^3/uL (1.7-8.2); BASOPHILS % (AUTO) 0.4 % (0-2); EOSINOPHILS % (AUTO) 4.2 % (0-6); HEMOGLOBIN 12.1 g/dL (12.0-15.5); HGB HCT DIFFERENCE 0.3; MEAN CORPUSCULAR HEMOGLOBIN 27.6 pg (27.0-33.4); MEAN CORPUSCULAR HGB CONC 33.7 g/dL (32.0-36.0); MEAN CORPUSCULAR VOLUME 82 fl (80-97); MONOCYTES % (AUTO) 7.1 % (3-13); RED BLOOD COUNT 4.39 10^6/uL (3.72-5.28); RED CELL DISTRIBUTION WIDTH 13.6 % (11.5-14.0); SEGMENTED NEUTROPHILS % (AUTO) 67.3 % (42-78); WHITE BLOOD COUNT 5.5 10^3/uL (4.0-10.5)
[2017-06-05 12:00] LABS: ALANINE AMINOTRANSFERASE 34 U/L (9-52); ALBUMIN 3.6 g/dL (3.5-5.0); ALKALINE PHOSPHATASE 73 U/L (38-126); ANION GAP 10 (5-19); ASPARTATE AMINO TRANSFERASE 23 U/L (14-36); BILIRUBIN,DIRECT 0.3 mg/dL (0.0-0.4); BILIRUBIN,TOTAL 0.4 mg/dL (0.2-1.3); BLOOD UREA NITROGEN 13 mg/dL (7-20); CALCIUM 9.7 mg/dL (8.4-10.2); CARBON DIOXIDE 29 mmol/L (22-30); CHLORIDE 100 mmol/L (98-107); CREATININE RESULT 0.55 mg/dL (0.52-1.25); GLUCOSE 93 mg/dL (75-110); SODIUM 138.7 mmol/L (137-145); TOTAL PROTEIN 6.8 g/dL (6.3-8.2)
--- NOTE | 2017-06-05 12:16 | RADIOLOGY REPORT (SQ) ---
EXAM DESCRIPTION: CT ABD/PELVIS WITH IV ONLY COMPLETED DATE/TIME: 06/05/2017 11:49 am REASON FOR STUDY: Acute abdominal pain COMPARISON: None. TECHNIQUE: CT scan of the abdomen and pelvis performed using helical scanning technique with dynamic intravenous contrast injection. No oral contrast. Images reviewed with lung, soft tissue, and bone windows. Reconstructed coronal and sagittal MPR images reviewed. Delayed images for evaluation of the urinary system also acquired. All images stored on PACS. All CT scanners at this facility use dose modulation, iterative reconstruction, and/or weight based d osing when appropriate to reduce radiation dose to as low as reasonably achievable (ALARA). [facility]: Dose Right [facility]: CareDose [facility]: Dose Right [facility]: Teradose 4D [facility]: [employer] CONTRAST TYPE AND DOSE: contrast/concentration: Isovue 370.00 mg/ml; Total Contrast Delivered: 100.0 ml; Total Saline Delivered: 72.0 ml RENAL FUNCTION: BUN 9 creatinine 0.62. RADIATION DOSE: . LIMITATIONS: None. FINDINGS: LOWER CHEST: Scattered basilar atelectasis/scarring. LIVER: Normal size. No masses. No dilated ducts. SPLEEN: Normal size. No focal lesions. PANCREAS: No masses. No significant calcifications. No adjacent inflammation or peripancreatic fluid collections. Pancreatic duct not dilated. GALLBLADDER: Surgically absent. ADRENAL GLANDS: No significant masses or asymmetry. RIGHT KIDNEY AND URETER: No solid masses. No significant calcifications. No hydronephrosis or hyd roureter. LEFT KIDNEY AND URETER: No solid masses. No significant calcifications. No hydronephrosis or hydr oureter. AORTA AND VESSELS: No aneurysm. No dissection. Renal arteries, SMA, celiac without stenosis. RETROPERITONEUM: No retroperitoneal adenopathy, hemorrhage or masses. BOWEL AND PERITONEAL CAVITY: No masses or inflammatory changes. No free fluid or peritoneal masses. APPENDIX: Normal. PELVIS: No mass. No free fluid. Normal bladder. ABDOMINAL WALL: No masses. No hernias. Mild streaky change in the subcutaneous fat secondary to rece nt surgery. BONES: No significant or acute findings. OTHER: No other significant finding. IMPRESSION: RECENT CHOLECYSTECTOMY. NO SIGNIFICANT OR ACUTE FINDING IN THE ABDOMEN OR PELVIS ON CT SCAN WITH IV CONTRAST. TECHNICAL DOCUMENTATION: JOB ID: [id number] Quality ID # [id number]: Final reports with documentation of one or more dose reduction techniques (e.g., Au tomated exposure control, adjustment of the mA and/or kV according to patient size, use of iterative reconstruction technique) 2010 [employer]- All Rights Reserved
[2017-06-05 15:54] VITALS: BP 110/61
== END 2017-06-05 15:53 | disposition home or self-care (01) ==
LOC: ER 10:46
DX: G89.18 Other acute postprocedural pain (principal); K59.01 Slow transit constipation; R10.84 Generalized abdominal pain; Z98.890 Other specified postprocedural states
CPT/HCPCS: 99284; 96374; 96375; 36415; 85025; 80053; 83605; 74177; J2270; J2405

== ENCOUNTER 2017-08-15 20:43 | Emergency (ER) | payer SELFPAY ==
[2017-08-15 20:54] VITALS: BP 122/79
--- NOTE | 2017-08-15 23:05 | RADIOLOGY REPORT (SQ) ---
EXAM DESCRIPTION: FOOT LEFT COMPLETE CLINICAL HISTORY: 41 years, Female, pain COMPARISON: None. NUMBER OF VIEWS:3 Findings: Bones, joints, and soft tissues of the left foot appear intact. IMPRESSION: No acute findings.
--- NOTE | 2017-08-15 23:05 | ER Document Report ---
ED Extremity Problem, Lower - General Chief Complaint: Foot Pain Stated Complaint: LEFT FOOT PAIN Time Seen by Provider: 08/15/17 22:17 Notes: Patient is a 41-year-old female that comes emergency department for chief complaint of left foot pain. Patient states for the past 4 days her left foot has been tender, worsening, states it is getting swollen. She denies injury, wound, heat to the area, fever or chills. She states she started limping on the foot. She states she has had random intermittent swelling of her hands as well. She has taken ibuprofen without significant change. She is not on any daily medications. She states she has not been sexually active for years and has regular menstrual cycles. TRAVEL OUTSIDE OF THE [place] IN LAST 30 DAYS: No - Related Data Allergies/Adverse Reactions: No Known Allergies Allergy (Verified 05/31/17 09:12) Past Medical History - General Information source: Patient - Social History Smoking Status: Never Smoker Chew tobacco use (# tins/day): No Frequency of alcohol use: None Drug Abuse: None Lives with: Alone Family History: Reviewed & Not Pertinent Patient has suicidal ideation: No Patient has homicidal ideation: No - Past Medical History Cardiac Medical History: Reports: Hx Hypertension Renal/ Medical History: Denies: Hx Peritoneal Dialysis GI Medical History: Reports: Hx Gastroesophageal Reflux Disease Musculoskeltal Medical History: Reports Hx Musculoskeletal Trauma - chronic back pain Psychiatric Medical History: Denies: Hx Depression Past Surgical History: Reports: Hx Cholecystectomy - Immunizations Immunizations up to date: No Hx Diphtheria, Pertussis, Tetanus Vaccination: No - UNKNOWN Review of Systems - Review of Systems Constitutional: No symptoms reported EENT: No symptoms reported Cardiovascular: No symptoms reported Respiratory: No symptoms reported Gastrointestinal: No symptoms reported Genitourinary: No symptoms reported Female Genitourinary: No symptoms reported Musculoskeletal: See HPI Skin: No symptoms reported Hematologic/Lymphatic: No symptoms reported Neurological/Psychological: No symptoms reported Physical Exam - Vital signs Vitals: Temp Pulse Resp BP Pulse Ox 98.1 F 86 20 122/79 100 08/15/17 20:49 08/15/17 20:49 08/15/17 20:49 08/15/17 20:49 08/15/17 20:49 Interpretation: Normal - General General appearance: Appears well In distress: None - HEENT Head: Normocephalic, Atraumatic Eyes: Normal Pupils: PERRL - Respiratory Respiratory status: No respiratory distress Chest status: Nontender Breath sounds: Normal Chest palpation: Normal - Cardiovascular Rhythm: Regular. No: Tachycardia Heart sounds: Normal auscultation, S1 appreciated, S2 appreciated Murmur: No - Abdominal Inspection: Normal Distension: No distension Bowel sounds: Normal Tenderness: Nontender. No: Tender, Guarding - Back Back: Normal, Nontender. No: Tender - Extremities General lower extremity: Other - There is mild soft tissue swelling of the foot and toes of the left foot, tenderness generally, however there is no erythema, abnormal heat, severe tenderness, wound, or other abnormality. Patient has mild discomfort with weightbearing. Normal capillary refill, dorsalis pedis, sensation. No overt edema or abnormality noted over the leg, normal lower extremity exam otherwise. - Neurological Neuro grossly intact: Yes Cognition: Normal Orientation: AAOx4 Carson Coma Scale Eye Opening: Spontaneous Carson Coma Scale Verbal: Oriented [place] Coma Scale Motor: Obeys Commands [place] Coma Scale Total: 15 Speech: Normal Motor strength normal: LUE, RUE, LLE, RLE Sensory: Normal - Psychological Associated symptoms: Normal affect, Normal mood - Skin Skin Temperature: Warm Skin Moisture: Dry Skin Color: Normal Course - Re-evaluation Re-evalutation: Foot appears to have mild soft tissue swelling, x-ray unremarkable, no evidence of infection on examination. No overt swelling suggesting DVT, no risk factors , although patient already believes that she has a blood clot in her leg. Unfortunately we do not have Doppler ultrasound at this time, she was provided with a prescription to get this done. Provided with anti-inflammatory that she can take, because she is reporting that she has random swelling of her different extremities and joints I discussed autoimmune workup with her primary care provider as well. Discussed return precautions in detail, patient states satisfaction and agreement. 08/16/17 07:05 Unfortunately discovered that patient's copy of her prescription for her Doppler ultrasound to get form was still on the desk here in the emergency department after she went home, I called and left a message instructing her which number to call, to swing by and clam picker her prescription, that when she can get this completed. Prescription left with charge nurse. - Vital Signs Vital signs: Temp Pulse Resp BP Pulse Ox 98.1 F 86 20 122/79 100 02/16/18 20:49 08/15/17 20:49 08/15/17 20:49 08/15/17 20:49 08/15/17 20:49 Discharge - Discharge Clinical Impression: Left foot pain, Foot swelling Condition: Stable Disposition: HOME, SELF-CARE Additional Instructions: The examination does not indicate infection at this time, your x-ray is normal. The exact cause of swelling in her left lower extremity is uncertain at this time, please call the number provided to have the follow-up Doppler ultrasound of your leg to rule out a blood clot as we discussed. Use the crutches if needed, use the indomethacin for your foot, recommend taking this with food, continuing Zantac. Elevate your foot. If the ultrasound is normal and symptoms of swelling and pain continue please follow-up with your primary care for additional evaluation. Because of your multiple joint swellings intermittently consider autoimmune panel. Return if you worsen including swelling up your leg, redness, fever of 100.4 or greater, chest pain, shortness of breath, or any other concerning symptoms. Prescriptions: Indomethacin [Indocin 50 mg Capsule] 50 mg PO TID PRN #15 capsule PRN Reason: Forms: Follow-Up Outpatient Testing
[2017-08-15] MEDS ORDERED: HYDROCODONE/ACETAMINOPHEN 5-325 MG (6 TAB/ER DISP) PO PRN (23:58)
== END 2017-08-16 00:40 | disposition home or self-care (01) ==
LOC: ER 20:43
DX: M79.672 Pain in left foot (principal); M79.89 Other specified soft tissue disorders
CPT/HCPCS: 99283

== ENCOUNTER 2017-08-16 13:21 | Emergency (ER) | payer SELFPAY ==
[2017-08-16] MEDS ORDERED: INDOMETHACIN 50 MG CAPSULE PO ONE (15:58)
--- NOTE | 2017-08-16 16:02 | ER Document Report ---
HPI - HPI Patient complains to provider of: foot pain Onset: Other - 4 days Onset/Duration: Persistent Quality of pain: Sharp Pain Level: 5 Context: Patient complains of persistent left foot pain for the past 4 days. Patient denies any injury. Patient states that she was here last night and discharged earlier this morning and was supposed to have an outpatient Doppler test to rule out any kind of blood clot in her foot. Patient was supposed to return with outpatient order for test but states that she lost the order slip. Patient states that she did not get her prescription for her pain medication filled either. Patient denies any previous history of DVT or PE in the past. Patient complains of increased pain with weightbearing. Patient was given crutches, but states that she left them in her car. Associated Symptoms: Other - Left foot pain. denies: Chest pain, Nonproductive cough, Productive cough Exacerbated by: Standing, Movement, Walking Relieved by: Denies Similar symptoms previously: No Recently seen / treated by doctor: Yes - ROS ROS below otherwise negative: Yes Systems Reviewed and Negative: Yes All other systems reviewed and negative - CONSTITUTIONAL Constitutional: DENIES: Fever - NEURO Neurology: DENIES: Headache - CARDIOVASCULAR Cardiovascular: DENIES: Chest pain - RESPIRATORY Respiratory: DENIES: Trouble Breathing, Coughing - REPRODUCTIVE Reproductive: DENIES: : - MUSCULOSKELETAL Musculoskeletal: REPORTS: Extremity pain, Swelling - DERM Skin Color: Normal Skin Problems: None Past Medical History - General Information source: Patient - Social History Smoking Status: Never Smoker Frequency of alcohol use: None Drug Abuse: None Occupation: none Lives with: Alone Family History: Reviewed & Not Pertinent - Past Medical History Cardiac Medical History: Reports: Hx Hypertension Renal/ Medical History: Denies: Hx Peritoneal Dialysis GI Medical History: Reports: Hx Gastroesophageal Reflux Disease Musculoskeltal Medical History: Reports Hx Musculoskeletal Trauma - chronic back pain Psychiatric Medical History: Denies: Hx Depression Past Surgical History: Reports: Hx Cholecystectomy - Immunizations Immunizations up to date: No Hx Diphtheria, Pertussis, Tetanus Vaccination: No - UNKNOWN Vertical Provider Document - CONSTITUTIONAL Agree With Documented VS: Yes Exam Limitations: No Limitations General Appearance: WD/WN, No Apparent Distress - INFECTION CONTROL TRAVEL OUTSIDE OF THE [place] IN LAST 30 DAYS: No - HEENT HEENT: Atraumatic, Normocephalic - NECK Neck: Normal Inspection, Supple - RESPIRATORY Respiratory: Breath Sounds Normal, No Respiratory Distress O2 Sat by Pulse Oximetry: 100 - CARDIOVASCULAR Cardiovascular: Regular Rate, Regular Rhythm Pulses: Normal: Posterior tibial, Dorsalis pedis - BACK Back: Normal Inspection - MUSCULOSKELETAL/EXTREMETIES Musculoskeletal/Extremeties: MAEW, Tender - Left foot tenderness to generalized foot, 1+ trace edema, normal skin color and temperature overlying joint. 2+ dorsalis pedis pulse - NEURO Level of Consciousness: Awake, Alert, Appropriate Motor/Sensory: No Motor Deficit - DERM Integumentary: Warm, Dry, No Rash Course - Re-evaluation Re-evalutation: 08/16/17 15:57 Preliminary Doppler study negative for any DVT Reviewed plan of care with patient. Patient does have prescription for Indocin although has not filled it yet or taken it today. Patient encouraged to get medication filled and take as directed. Patient encouraged to use her crutches that she has at home to help with ambulation. Patient advised to follow-up with her primary doctor tomorrow for recheck or with the orthopedic doctor. No concern for fracture or DVT at this time. Patient does not present with symptoms concerning for cellulitis. Discussed with patient possibility of gout. Good return precautions provided. - Vital Signs Vital signs: Temp Pulse Resp BP Pulse Ox 98.3 F 94 20 120/78 100 08/16/17 13:35 08/16/17 13:35 08/16/17 13:35 08/16/17 13:35 08/16/17 13:35 - Diagnostic Test Radiology reviewed: Reports reviewed - x ray report reviewed from previous ER visit Discharge - Discharge Clinical Impression: Left foot pain Condition: Stable Disposition: HOME, SELF-CARE Instructions: Anti-Inflammatory Medication ([facility]) Additional Instructions: Return immediately for any new or worsening symptoms Followup with your primary care provider, call tomorrow to make a followup appointment Follow-up with orthopedic doctor, call Friday for an appointment Use your crutches that you have at home to help with ambulation Get the prescription filled that you were provided at your previous ER visit Referrals: UCHE VAUGHAN MD [Primary Care Provider] - 08/18/17 [facility] [Provider Group] - 08/18/17
[2017-08-16 16:37] VITALS: BP 121/73
--- NOTE | 2017-08-17 12:43 | XCELERA REPORT ---
[address] [address] Lower Extremity Venous Evaluation Name: NICOLA KITCHEN Age: 41 yrs Gender: Female : 1975 Patient Status: Preadmit Patient Location: ER Study Date: 08/16/2017 03:30 PM Procedure: Color flow and duplex imaging of the veins of the left lower extremity as well as the right Common Femoral vein. Reason For Study: left foot swelling Ordering Physician: SHERRIE PRICE PA-C Performed By: Clarisse Condon Right Sided Venous Evaluation The right common femoral vein is fully compressible. Spontaneous and phasic flow is present in the right common femoral vein. Left Sided Venous Evaluation Normal vessel filling wall to wall, compression and augmentation as well as Colour flow down to the infrageniculate veins. Interpretation Summary No duplex evidence of DVT or obstruction in the left lower extremity nor in the right Common Femoral vein. : SHERRIE PRICE PA-C > Leroy Zavala
== END 2017-08-16 16:40 | disposition home or self-care (01) ==
LOC: ER 13:21
DX: M79.672 Pain in left foot (principal)
CPT/HCPCS: 99283; 93971 ×2; J3490

== ENCOUNTER 2017-11-28 23:15 | Emergency (ER) | payer SELFPAY ==
--- NOTE | 2017-11-28 23:44 | ER Document Report ---
ED General - General Chief Complaint: Abdominal Pain Stated Complaint: ABDOMINAL PAIN Time Seen by Provider: 11/28/17 23:22 Notes: Patient is a 41-year-old female who presents to the ER because she has been achy all over. She was just discharged from [facility] yesterday after being there for 10 days after undergoing a tummy tuck and liposuction. She said after that she developed cellulitis. She denies ever developing intra- abdominal abscess. She said she continues to like she has fevers at home because she is achy all over however she has not checked her temp to see if she has an objective fever. She denies any vomiting. No diarrhea. No cough or congestion. Her physician was Dr. Garcia. She has no other complaints at this time. She is currently taking metronidazole, Levaquin, and Zyvox. Patient has been having bowel movements and says she had a normal bowel movement today. TRAVEL OUTSIDE OF THE [place] IN LAST 30 DAYS: No - Related Data Allergies/Adverse Reactions: No Known Allergies Allergy (Verified 08/16/17 13:22) Past Medical History - Social History Smoking Status: Unknown if Ever Smoked Frequency of alcohol use: None Drug Abuse: None Family History: Reviewed & Not Pertinent Patient has suicidal ideation: No Patient has homicidal ideation: No - Past Medical History Cardiac Medical History: Reports: Hx Hypertension Renal/ Medical History: Denies: Hx Peritoneal Dialysis GI Medical History: Reports: Hx Gastroesophageal Reflux Disease Musculoskeltal Medical History: Reports Hx Musculoskeletal Trauma - chronic back pain Psychiatric Medical History: Denies: Hx Depression Past Surgical History: Reports: Hx Cholecystectomy - Immunizations Immunizations up to date: No Hx Diphtheria, Pertussis, Tetanus Vaccination: No - UNKNOWN Review of Systems - Review of Systems Notes: My Normal Review Basic REVIEW OF SYSTEMS: CONSTITUTIONAL : Subjective fever and body aches EENT: Denies eye, ear, throat, or mouth pain or symptoms. Denies nasal or sinus congestion. CARDIOVASCULAR: Denies chest pain. RESPIRATORY: Denies cough, cold, or chest congestion. Denies shortness of breath, difficulty breathing, or wheezing. GASTROINTESTINAL: Recent abdominal surgery. GENITOURINARY: Denies difficulty urinating, painful urination, burning, frequency, or blood in urine. MUSCULOSKELETAL: Body aches SKIN: Denies rash or skin lesions. NEUROLOGICAL: Denies altered mental status or loss of consciousness. Denies headache. Denies weakness or paralysis or loss of use of either side. Denies problems with gait or speech. Denies sensory or motor loss. ALL OTHER SYSTEMS REVIEWED AND NEGATIVE. Physical Exam - Vital signs Vitals: Resp Pulse Ox 22 H 98 11/28/17 23:59 11/28/17 23:59 - Notes Notes: General Appearance: Well nourished, alert, cooperative, no acute distress, mild obvious discomfort. Vitals: reviewed, See vital signs table. Head: no swelling or tenderness to the head Eyes: PERRL, EOMI, Conjuctiva clear Mouth: No decreasd moisture Throat: No tonsillar inflammation, No airway obstruction, No lymphadenopathy Lungs: No wheezing, No rales, No rhonci, No accessory muscle use, good air exchange bilaterally. Heart: Normal rate, Regular rythm, No murmur, no rub Abdomen: Normal BS, soft, No rigidity, patient has large normal surgical incision at the waistline. It appears to be healing well. Is minimal surrounding erythema. She does have a bandage over the area where her drain tubes are were removed 2 days ago. The bandage is not soaked and does not show signs of continued drainage. She has as expected soreness to palpation around the surgical site. Remainder of abdomen is nontender. Extremities: strength 5/5 in all extremities, good pulses in all extremities, no swelling or tenderness in the extremities, no edema. Skin: warm, dry, appropriate color, no rash Neuro: speech clear, oriented x 3, normal affect, responds appropriately to questions. Course - Re-evaluation Re-evalutation: 11/29/17 01:41 Patient's white blood cell count is normal. Patient's hemoglobin was 8.9. I did call and speak with Dr. Neil barkley, hospitalist at [facility] [place] covering for Dr. Carreno. She said that the patient's hemoglobin at time of discharge was 8.3. Therefore is trending upwards appropriately. She has no white count. Her temperature on the ambulance when she felt hot was 99 7. Temp now is 98.6. She is on 3 different antibiotics. Her surgical site looks well. Patient herself says that she feels much improved and is actually requesting discharge home. She says oxycodone is not covering her pain well in the past oxycodone has not worked well for her and she says Lortab elixir actually worked very well for her. I have prescribed her Lortab elixir and told her to stop taking the oxycodone. I informed her that she should buy a thermometer so she can check her temp at home. If she has a temp over 100.6 and she should return to ER immediately. I informed her she also should return if she has worsening pain , feels unwell, or feels ill. Patient agrees with plan will be discharged home. Patient to follow-up closely with her surgeon next week. Dictation of this chart was performed using voice recognition software; therefore, there may be some unintended grammatical errors. - Vital Signs Vital signs: Temp Pulse Resp BP Pulse Ox 98.6 F 22 H 106/70 98 11/29/17 01:03 11/29/17 01:03 11/29/17 01:03 11/29/17 01:03 - Laboratory Result Diagrams: 11/28/17 23:55 11/28/17 23:55 Laboratory results interpreted by me: 11/28/17 11/28/17 23:55 23:55 RBC 3.21 L Hgb 8.9 L Hct 26.1 L RDW 14.4 H Plt Count 811 H Lymphocytes % 7.5 L Eosinophils % 11.6 H Absolute Eosinophils 1.2 H Total Bilirubin < 0.1 L AST 46 H Total Protein 5.8 L Albumin 2.9 L Discharge - Discharge Clinical Impression: Body aches, Post-op pain Condition: Good Disposition: HOME, SELF-CARE Instructions: Oral Narcotic Medication ([facility]) Additional Instructions: Please buy a thermometer adn keep an eye on your temp at home. return to the ER or call your doctor if you have a fever of over 100.6. Please stop taking the oxycodone and start taking the Lortab elixir for pain instead. Please follow up with your surgeon early next week for reevaluation. Please return to the ER immediately if you have recurrent fevers, vomiting, worsening abdominal pain, or feel ill. Prescriptions: Hydrocodone/Acetaminophen [Lortab 7.5-325 mg/15 ml Oral Soln] 5 ml PO Q6H PRN # 60 ml PRN Reason: Referrals: UCHE VAUGHAN MD [Primary Care Provider] - 12/02/17
[2017-11-29 00:08] LABS: ABSOLUTE EOSINOPHILS # (AUTO) 1.2 10^3/uL (0.0-0.6); ABSOLUTE LYMPHOCYTES (AUTO) 0.8 10^3/uL (0.5-4.7); ABSOLUTE MONOCYTES (AUTO) 0.5 10^3/uL (0.1-1.4); ABSOLUTE NEUT (AUTO) 7.5 10^3/uL (1.7-8.2); BASOPHILS % (AUTO) 0.3 % (0-2); EOSINOPHILS % (AUTO) 11.6 % (0-6); HEMATOCRIT 26.1 % (36.0-47.0); HEMOGLOBIN 8.9 g/dL (12.0-15.5); LYMPHOCYTES % (AUTO) 7.5 % (13-45); MEAN CORPUSCULAR HEMOGLOBIN 27.8 pg (27.0-33.4); MEAN CORPUSCULAR HGB CONC 34.1 g/dL (32.0-36.0); MEAN CORPUSCULAR VOLUME 82 fl (80-97); MONOCYTES % (AUTO) 5.3 % (3-13); PLATELET COUNT 811 10^3/uL (150-450); RED BLOOD COUNT 3.21 10^6/uL (3.72-5.28); RED CELL DISTRIBUTION WIDTH 14.4 % (11.5-14.0); SEGMENTED NEUTROPHILS % (AUTO) 75.3 % (42-78); TOTAL CELLS COUNTED % (AUTO) 100 %
--- NOTE | 2017-11-29 00:23 | RADIOLOGY REPORT (SQ) ---
EXAM DESCRIPTION: Single view of the chest CLINICAL HISTORY: post op fever COMPARISON: 08/03/2012 FINDINGS: Single frontal view of the chest. The cardiomediastinal silhouette has normal size and contour. Low lung volumes. No consolidation, pneumothorax, pleural effusion. Leads overlie the chest. No displaced rib fractures identified. Upper abdominal soft tissues are unremarkable. IMPRESSION: 1. No acute pulmonary process identified. Low lung volumes.
[2017-11-29 00:25] LABS: ALANINE AMINOTRANSFERASE 37 U/L (9-52); ALBUMIN 2.9 g/dL (3.5-5.0); ALKALINE PHOSPHATASE 73 U/L (38-126); ANION GAP 9 (5-19); ASPARTATE AMINO TRANSFERASE 46 U/L (14-36); BILIRUBIN,TOTAL < 0.1 mg/dL (0.2-1.3); BLOOD UREA NITROGEN 10 mg/dL (7-20); CALCIUM 9.3 mg/dL (8.4-10.2); CARBON DIOXIDE 26 mmol/L (22-30); CHLORIDE 106 mmol/L (98-107); GLUCOSE 105 mg/dL (75-110); POTASSIUM 4.2 mmol/L (3.6-5.0); SODIUM 140.7 mmol/L (137-145); TOTAL PROTEIN 5.8 g/dL (6.3-8.2)
[2017-11-29 00:32] LABS: APPEARANCE,URINE CLEAR; BILIRUBIN,URINE NEGATIVE (NEGATIVE); COLOR,URINE YELLOW; GLUCOSE, URINE NEGATIVE (NEGATIVE); KETONES,URINE NEGATIVE (NEGATIVE); LEUKOCYTE ESTERASE,URINE NEGATIVE (NEGATIVE); NITRITE,URINE NEGATIVE (NEGATIVE); PROTEIN,URINE NEGATIVE (NEGATIVE); UROBILINOGEN,URINE NEGATIVE mg/dL (<2.0)
[2017-11-29 01:05] VITALS: BP 106/70
== END 2017-11-29 01:56 | disposition home or self-care (01) ==
LOC: ER 23:15
DX: G89.18 Other acute postprocedural pain (principal); M79.1 Myalgia; R10.9 Unspecified abdominal pain; R50.9 Fever, unspecified; Z98.890 Other specified postprocedural states; Z79.899 Other long term (current) drug therapy; I10 Essential (primary) hypertension
CPT/HCPCS: 36415; 71045; 80053; 81001; 85025; 99284

== ENCOUNTER 2018-04-25 21:34 | Emergency (ER) | payer SELFPAY ==
[2018-04-25] MEDS ORDERED: PROMETHAZINE HCL INJ 25 MG/1 ML VIAL IM ONE (22:56)
[2018-04-25] MEDS ORDERED: PENICILLIN V POTASSIUM 500 MG TABLET PO ONE (22:56)
--- NOTE | 2018-04-25 23:02 | ER Document Report ---
ED Oral Problem - General Chief Complaint: Toothache Stated Complaint: TEETH EYE PAIN Time Seen by Provider: 04/25/18 21:56 Notes: Patient is a 42-year-old female who is coming in complaining of a toothache in her right lower molar. Tooth is cracked. Has had a headache related to her toothache for the last 5 days. Patient also noticed that she had some redness in her eye for the last 2 days. No blurred vision or eye pain. No decreased vision. Denies fever. No swelling of the jaw. Patient does not have a dentist. Took ibuprofen without relief TRAVEL OUTSIDE OF THE [place] IN LAST 30 DAYS: No - HPI Patient complains to provider of: Toothache Quality of pain: Dull Severity: Moderate Associated symptoms: None Similar symptoms previously: No Recently seen / treated by doctor/dentist: No - Related Data Allergies/Adverse Reactions: No Known Allergies Allergy (Verified 08/16/17 13:22) Past Medical History - Social History Smoking Status: Never Smoker Family History: Reviewed & Not Pertinent Patient has suicidal ideation: No Patient has homicidal ideation: No - Past Medical History Cardiac Medical History: Reports: Hx Hypertension Renal/ Medical History: Denies: Hx Peritoneal Dialysis GI Medical History: Reports: Hx Gastroesophageal Reflux Disease Musculoskeletal Medical History: Reports Hx Musculoskeletal Trauma - chronic back pain Psychiatric Medical History: Denies: Hx Depression Past Surgical History: Reports: Hx Cholecystectomy - Immunizations Immunizations up to date: No Hx Diphtheria, Pertussis, Tetanus Vaccination: No - UNKNOWN Review of Systems - Review of Systems Constitutional: No symptoms reported EENT: See HPI Cardiovascular: No symptoms reported Respiratory: No symptoms reported Gastrointestinal: No symptoms reported Genitourinary: No symptoms reported Female Genitourinary: No symptoms reported Musculoskeletal: No symptoms reported Skin: No symptoms reported Hematologic/Lymphatic: No symptoms reported Neurological/Psychological: See HPI Physical Exam - Vital signs Vitals: Temp Pulse Resp BP Pulse Ox 98.0 F 83 20 124/81 99 04/25/18 21:48 04/25/18 21:48 04/25/18 21:48 04/25/18 21:48 04/25/18 21:48 Interpretation: Normal - General General appearance: Appears well, Alert - HEENT Head: Normocephalic, Atraumatic Eyes: Normal Conjunctiva: Other - Subconjunctival hemorrhage right medial eye Pupils: PERRL Mouth/Lips: Normal Mucous membranes: Moist Pharynx: Normal Neck: Normal Notes: Right second molar is cracked and tenderness to palpation. No swelling or bleeding. No evidence for abscess no swelling of buccal mucosa or cheek/jaw. - Respiratory Respiratory status: No respiratory distress Chest status: Nontender Breath sounds: Normal Chest palpation: Normal - Cardiovascular Rhythm: Regular Heart sounds: Normal auscultation Murmur: No - Abdominal Inspection: Normal Distension: No distension Bowel sounds: Normal Tenderness: Nontender Organomegaly: No organomegaly - Back Back: Normal, Nontender - Extremities General upper extremity: Normal inspection, Nontender, Normal color, Normal ROM , Normal temperature General lower extremity: Normal inspection, Nontender, Normal color, Normal ROM , Normal temperature, Normal weight bearing. No: Laura's sign - Neurological Neuro grossly intact: Yes Cognition: Normal Orientation: AAOx4 Carson Coma Scale Eye Opening: Spontaneous Carson Coma Scale Verbal: Oriented Carson Coma Scale Motor: Obeys Commands [place] Coma Scale Total: 15 Speech: Normal Motor strength normal: LUE, RUE, LLE, RLE Sensory: Normal - Psychological Associated symptoms: Normal affect, Normal mood - Skin Skin Temperature: Warm Skin Moisture: Dry Skin Color: Normal Course - Re-evaluation Re-evalutation: 04/25/18 23:07 Patient with toothache and associated headache. Will be initiated on penicillin and Ultram for pain at home. She is to see dentist. Patient has a subconjunctival hemorrhage which is not causing any visual disturbance. She is to follow-up with her doctor. Given dental list. Return if worsening or concerning symptoms. Stable for discharge. - Vital Signs Vital signs: Temp Pulse Resp BP Pulse Ox 98.0 F 83 20 124/81 99 04/25/18 21:48 04/25/18 21:48 04/25/18 21:48 04/25/18 21:48 04/25/18 21:48 Discharge - Discharge Clinical Impression: Toothache Condition: Stable Disposition: HOME, SELF-CARE Instructions: Toothache ([facility]), Subconjunctival Hemorrhage ([facility]) Prescriptions: Penicillin V Potassium [Penicillin Vk 500 mg Tablet] 500 mg PO TID #30 tablet Tramadol HCl [Ultram 50 mg Tablet] 50 mg PO BIDP PRN #6 tablet PRN Reason: Referrals: UCHE VAUGHAN MD [Primary Care Provider] - Follow up in 3-5 days
[2018-04-25 23:26] VITALS: BP 119/76
== END 2018-04-25 23:23 | disposition home or self-care (01) ==
LOC: ER 21:34
DX: K08.89 Other specified disorders of teeth and supporting structures (principal); K03.81 Cracked tooth; H11.31 Conjunctival hemorrhage, right eye; R51 Headache; H57.89 Other specified disorders of eye and adnexa; I10 Essential (primary) hypertension
CPT/HCPCS: 99283; 96372; J2550

== ENCOUNTER 2018-05-09 10:41 | Inpatient (IN) | payer SELFPAY ==
[2018-05-09] MEDS ORDERED: EPINEPHRINE INJ/PF 1 MG/1 ML AMPULE SUBCUT ONE (10:57)
[2018-05-09] MEDS ORDERED: FAMOTIDINE 20 MG TABLET PO ONE (10:57)
[2018-05-09] MEDS ORDERED: DIPHENHYDRAMINE HCL 50 MG/ML VIAL IM ONE (10:57)
[2018-05-09] MEDS ORDERED: PREDNISONE 20 MG TABLET PO ONE (10:58)
--- NOTE | 2018-05-09 11:02 | ER Document Report ---
ED Medical Screen (RME) - General Chief Complaint: Allergic Reaction Stated Complaint: SWELLING Time Seen by Provider: 05/09/18 10:50 Notes: 42-year-old female patient reports onset yesterday evening of right third finger pain and swelling, and later nodular type swelling to the dorsal forearms and lateral thighs. Forearm and thigh areas are tender and pruritic. She will get this morning with the left side of her mouth grossly swollen. She was seen here on 04/25/2018 with a dental problem and prescribed Pen-Vee K for 10 days. She filled the prescription on 04/27/2019, should have finished on 05/07/2018. She states she has finished the penicillin. There are no other medications recently. She has never had this happen before. This looks like it is primarily an urticarial type problem. She will be given epinephrine sub-Q, Benadryl IM, prednisone orally, Pepcid orally. I have greeted and performed a rapid initial assessment of this patient. A comprehensive ED assessment and evaluation of the patient, analysis of test results and completion of the medical decision making process will be conducted by additional ED providers. TRAVEL OUTSIDE OF THE [place] IN LAST 30 DAYS: No - Related Data Allergies/Adverse Reactions: No Known Allergies Allergy (Verified 05/09/18 10:42) Past Medical History - Past Medical History Cardiac Medical History: Reports: Hx Hypertension Renal/ Medical History: Denies: Hx Peritoneal Dialysis GI Medical History: Reports: Hx Gastroesophageal Reflux Disease Musculoskeltal Medical History: Reports Hx Musculoskeletal Trauma - chronic back pain Psychiatric Medical History: Denies: Hx Depression Past Surgical History: Reports: Hx Cholecystectomy - Immunizations Immunizations up to date: No Hx Diphtheria, Pertussis, Tetanus Vaccination: No - UNKNOWN History of Influenza Vaccine for 03/2017 - 08/2017 Season: Refused Physical Exam - Vital signs Vitals: Temp Pulse Resp BP Pulse Ox 97.4 F 91 16 117/75 98 05/09/18 10:45 05/09/18 10:45 05/09/18 10:45 05/09/18 10:45 05/09/18 10:45 Course - Vital Signs Vital signs: Temp Pulse Resp BP Pulse Ox 97.4 F 91 16 117/75 98 05/09/18 10:45 05/09/18 10:45 05/09/18 10:45 05/09/18 10:45 05/09/18 10:45 Doctor's Discharge - Discharge Referrals: UCHE VAUGHAN MD [Primary Care Provider] - Follow up as needed
[2018-05-09 11:40] LABS: ABSOLUTE MONOCYTES (AUTO) 0.2 10^3/uL (0.1-1.4); ABSOLUTE NEUT (AUTO) 6.7 10^3/uL (1.7-8.2); BASOPHILS % (AUTO) 0.2 % (0-2); EOSINOPHILS % (AUTO) 0.5 % (0-6); HEMATOCRIT 41.4 % (36.0-47.0); LYMPHOCYTES % (AUTO) 12.4 % (13-45); MEAN CORPUSCULAR HEMOGLOBIN 27.4 pg (27.0-33.4); MEAN CORPUSCULAR HGB CONC 33.9 g/dL (32.0-36.0); MEAN CORPUSCULAR VOLUME 81 fl (80-97); MONOCYTES % (AUTO) 2.6 % (3-13); PLATELET COUNT 393 10^3/uL (150-450); RED BLOOD COUNT 5.12 10^6/uL (3.72-5.28); SEGMENTED NEUTROPHILS % (AUTO) 84.3 % (42-78); TOTAL CELLS COUNTED % (AUTO) 100 %; WHITE BLOOD COUNT 7.9 10^3/uL (4.0-10.5)
[2018-05-09 11:51] LABS: ALANINE AMINOTRANSFERASE 13 U/L (9-52); ALBUMIN 4.1 g/dL (3.5-5.0); ALKALINE PHOSPHATASE 79 U/L (38-126); ANION GAP 13 (5-19); ASPARTATE AMINO TRANSFERASE 15 U/L (14-36); BILIRUBIN,DIRECT 0.1 mg/dL (0.0-0.4); BILIRUBIN,TOTAL 0.6 mg/dL (0.2-1.3); BLOOD UREA NITROGEN 7 mg/dL (7-20); CALCIUM 9.9 mg/dL (8.4-10.2); CARBON DIOXIDE 23 mmol/L (22-30); CHLORIDE 104 mmol/L (98-107); GLUCOSE 121 mg/dL (75-110); SODIUM 140.1 mmol/L (137-145); TOTAL PROTEIN 7.7 g/dL (6.3-8.2)
[2018-05-09] MEDS ORDERED: EPINEPHRINE INJ/PF 1 MG/1 ML AMPULE IM ONE (11:57)
--- NOTE | 2018-05-09 12:14 | ER Document Report ---
ED Allergic Reaction - General Mode of Arrival: Ambulatory Information source: Patient TRAVEL OUTSIDE OF THE [place] IN LAST 30 DAYS: No - HPI Patient complains to provider of: Swelling of lips and extremities Onset: Other - Last night Onset/Duration: Gradual, Worse Quality of pain: Achy Severity: Moderate Pain Level: 3 Identified cause: Possibly Medication Exposure: Antibiotic Skin rash / itching: Diffuse, "Redness", "Hives" Swelling: Lip(s) Trouble swallowing / speaking: Mild Associated symptoms: None Similar symptoms previously: No Recently seen / treated by doctor: Yes <SUSANNE CHEUNG - Last Filed: 05/09/18 13:48> <QUIANA WADDELL - Last Filed: 05/09/18 13:57> - General Chief Complaint: Allergic Reaction Stated Complaint: SWELLING Time Seen by Provider: 05/09/18 10:50 Notes: Patient is a 42-year-old female comes emergency room complaining of swelling to her upper extremities and to her mouth. Patient states she was on Pen-Vee K for about a week for dental infection which she received from here. She is also on tramadol for little while as well. She started with the swelling last night and it progressively gotten worse over the course of the evening and into the day. Patient denies any other medical problems and denies taking any other medications she denies difficulty swallowing just states there is a little tickle in her throat she is handling her own secretions she is able to talk in full sentences. Patient is concerned that she is having allergic reaction to the antibiotic. She also has aches and pains across her body. (SUSANNE CHEUNG) - Related Data Allergies/Adverse Reactions: penicillin V Allergy (Severe, Verified 05/09/18 13:22) Anaphylaxis Past Medical History - General Information source: Patient - Social History Smoking Status: Unknown if Ever Smoked Cigarette use (# per day): No Chew tobacco use (# tins/day): No Smoking Education Provided: No Frequency of alcohol use: None Drug Abuse: None Family History: Reviewed & Not Pertinent Patient has suicidal ideation: No Patient has homicidal ideation: No - Past Medical History Cardiac Medical History: Reports: Hx Hypertension Renal/ Medical History: Denies: Hx Peritoneal Dialysis GI Medical History: Reports: Hx Gastroesophageal Reflux Disease Musculoskeletal Medical History: Reports Hx Musculoskeletal Trauma - chronic back pain Psychiatric Medical History: Denies: Hx Depression Past Surgical History: Reports: Hx Cholecystectomy - Immunizations Immunizations up to date: No Hx Diphtheria, Pertussis, Tetanus Vaccination: No - UNKNOWN <SUSANNE CHEUNG - Last Filed: 05/09/18 13:48> Review of Systems - Review of Systems Constitutional: No symptoms reported EENT: Other - Lip swelling Cardiovascular: No symptoms reported Respiratory: No symptoms reported Gastrointestinal: No symptoms reported Genitourinary: No symptoms reported Female Genitourinary: No symptoms reported Musculoskeletal: No symptoms reported Skin: Rash Hematologic/Lymphatic: No symptoms reported Neurological/Psychological: No symptoms reported -: Yes All other systems reviewed and negative <SUSANNE CHEUNG Darnell - Last Filed: 05/09/18 13:48> Physical Exam - Vital signs Interpretation: Normal <SUSANNE CHEUNG Darnell - Last Filed: 05/09/18 13:48> <QUIANA WADDELL - Last Filed: 05/09/18 13:57> - Vital signs Vitals: Temp Pulse Resp BP Pulse Ox 97.4 F 91 16 117/75 98 05/09/18 10:45 05/09/18 10:45 05/09/18 10:45 05/09/18 10:45 05/09/18 10:45 - Notes Notes: PHYSICAL EXAMINATION: GENERAL: Patient is well-nourished well-developed female who is in no distress but appears uncomfortable. HEAD: Atraumatic, normocephalic. EYES: Pupils equal round and reactive to light, extraocular movements intact, conjunctiva are normal. ENT: Examination head and upper airway showed nasal mucosa to be mildly erythematous and edematous there is no frontal or sinus tenderness to palpation or percussion. There is no rhinorrhea noted. Examination of the ears bilaterally show the TMs to be intact and slight bulging of the TMs but no air- fluid levels noted. Minimal amount of cerumen in the canals and there is no obstruction of the TMs. Further examination shows the patient has angioedema of the left side of her mouth occluding both the upper and lower lip. Continuation of exam shows that patient's tongue is normal in appearance there is no angioedema at this time. Patient can open her mouth relatively wide and can see to the back of her uvula is midline with no erythema there is no encroachment upon it airway is patent at this time. NECK: Normal range of motion, supple without lymphadenopathy LUNGS: Breath sounds clear to auscultation bilaterally and equal. No wheezes rales or rhonchi. HEART: Regular rate and rhythm without murmurs ABDOMEN: Soft, nontender, nondistended abdomen. No guarding, no rebound. No masses appreciated. Female : deferred Musculoskeletal: Normal range of motion, no pitting or edema. No cyanosis. NEUROLOGICAL: Cranial nerves grossly intact. Normal speech, normal gait. Normal sensory, motor exams PSYCH: Normal mood, normal affect. SKIN: Examination of patient's skin shows her to be a systemic rash a urticaria presentation. She also has some puffiness in the upper extremity hands on the dorsal aspects and some on the left buttocks area. (SUSANNE CHEUNG) Course - Laboratory Result Diagrams: 05/09/18 11:07 05/09/18 11:07 <SUSANNE CHEUNG - Last Filed: 05/09/18 13:48> - Laboratory Result Diagrams: 05/09/18 11:07 05/09/18 11:07 <QUIANA WADDELL - Last Filed: 05/09/18 13:57> - Re-evaluation Re-evalutation: 05/09/18 12:14 Patient was also seen by Dr Quiana Waddell who agrees and feels the patient should go to the unit. I have contacted the hospitalist and he is going to place her in the unit tonight. She is received epi 0.3 x 2 prednisone 60 p.o. Benadryl 50 IM and Pepcid p.o. Reevaluation of patient has occurred numerous times since being first seen by Dr. Still from. Been monitoring her on fairly relative basis every 15-20 minutes to make sure that she is still having a competent airway. Patient continues to be able to talk in full sentences. Her sat is been running 98%. Heart rate was been stable. Blood pressure is also been stable. Admission to the ICU was just precautionary though there has not been huge strides in her decrease in her angioedema of the lips there has been no progression either. 05/09/18 12:19 (SUSANNE CHEUNG) 05/09/18 13:55 I personally evaluated this patient. She had left upper and lower lip angioedema. There was no visible edema posterior to her gingival line. Patient had received 1 dose of epinephrine when I saw her and was still having significant swelling with diffuse rash and areas of edema throughout her extremities. She was given another dose of epinephrine for her continued reaction. Patient was oxygenating well on room air with no stridor or respiratory distress. She was admitted to the ICU for close respiratory monitoring. (QUIANA WADDELL) - Vital Signs Vital signs: Temp Pulse Resp BP Pulse Ox 98.2 F 91 18 121/82 99 05/09/18 13:00 05/09/18 10:45 05/09/18 13:00 05/09/18 13:00 05/09/18 13:00 - Laboratory Laboratory results interpreted by me: 05/09/18 05/09/18 11:07 11:07 Seg Neutrophils % 84.3 H Lymphocytes % 12.4 L Monocytes % 2.6 L Creatinine 0.47 L Glucose 121 H Critical Care Note - Critical Care Note Total time excluding time spent on procedures (mins): 40 <SUSANNE CHEUNG - Last Filed: 05/09/18 13:48> <QUIANA WADDELL - Last Filed: 05/09/18 13:57> - Critical Care Note Comments: As stated in the course minimum of 40 minutes of been spent reassessing patient multiple times during her stay. Close monitoring was secondary to the fact that we wanted to make sure she did not decompensate and her airway status and she was checked frequently by myself to ensure that her breathing maintained normal. Also concerns was her handling her own secretions however reevaluation showed that the oral cavity had not changed at all. Her tongue continues to be normal size she is swallowing her secretions without any difficulty. I had a a long conversation with the hospitalist about patient be admitted to the ICU as a precautionary event for which he agreed. Also made multiple trips into rediscussed what may be the causative agent. I realized patient has been on penicillin for the tooth and just finished yesterday which is the most likely cause but I have questioned patient numerous times about any other possibilities to see if I can jog her memory but this appears that is going to be that the penicillin as a causative agent. (SUSANNE CHEUNG) Discharge - Discharge Admitting Provider: Hospitalist Unit Admitted: ICU - The document cripple care time on this 1 <SUSANNE CHEUNG - Last Filed: 05/09/18 13:48> <QUIANA WADDELL - Last Filed: 05/09/18 13:57> - Discharge Clinical Impression: Angioedema Qualifiers: Encounter type: initial encounter Qualified Code(s): T78.3XXA - Angioneurotic edema, initial encounter Allergic reaction caused by a drug Qualifiers: Encounter type: initial encounter Qualified Code(s): T78.40XA - Allergy, unspecified, initial encounter Condition: Stable Disposition: ADMITTED OBSERVATION
[2018-05-09] MEDS ORDERED: GLUCAGON,HUMAN RECOMB 1 MG INJ SUBCUT PRN (13:04)
[2018-05-09] MEDS ORDERED: DEXTROSE 50%-WATER 25 GM/50 ML DISP.SYRIN IV PRN ×2 (13:04)
[2018-05-09] MEDS ORDERED: DEXTROSE 40% GEL 15 GM TUBE PO PRN ×2 (13:04)
--- NOTE | 2018-05-09 13:41 | PDOC H&P ---
History of Present Illness Admission Date/PCP: 05/09/18 12:28 UCHE VAUGHAN Patient complains of: swelling of face, arms and legs History of Present Illness: NICOLA KITCHEN is a 42 year old female with no significant PMH presented to the ED this morning c/o lips swelling, arm swelling, tenderness of the arms and legs and overall erythema. patient states yesterday she noted some swelling of her left hand but nothing else. she went to bed and this morning woke up with some swelling of her face and arms. she took ibuprofen and benadryl and tried to go back to sleep but then her symptoms worsened. states she has lips, tongue , arm and leg swelling- mostly of the left side of her body. states within 3 hours this morning all of her body was starting to swelling very fast. hence she came to the ED. she denies any regular medicine. states the only thing she takes is ibuprofen and benadryl. she denies any recent diet changes. she admits to eating shrimp 2 days ago but she's had that before without any issues. denies recent travel. she does admit to recently being on PEN VK - it was prescribed to her 2 weeks ago for a toothache. she was told to take it for 10 days- she's not sure if she took it yesterday or not- she's not sure if she has anymore or not. she told ED physician that she finished her meds 2 days ago. she feels better now after receiving meds in the ED. denies chest pain, SOB, abdominal pain or dizziness. she did feel nauseous earlier this morning. of note - she tells me that she had tummy tuck performed in October 2017 at [facility] in [place]- states there was complication and she was admitted in the hospital for "breathing" problems for >3 weeks. she's not sure what was wrong at that time. Past Medical History Cardiac Medical History: Reports: Hypertension GI Medical History: Reports: Gastroesophageal Reflux Disease Psychiatric Medical History: Denies: Depression Past Surgical History Past Surgical History: Reports: Cholecystectomy, Other - panniculectomy Social History Information Source: Patient Lives with: Alone Smoking Status: Unknown if Ever Smoked Frequency of Alcohol Use: None Hx Recreational Drug Use: No Drugs: None Hx Prescription Drug Abuse: No - Advance Directive Resuscitation Status: Full Code Family History Family History: Reviewed & Not Pertinent, Hypertension Parental Family History Reviewed: Yes Children Family History Reviewed: Unknown Sibling(s) Family History Reviewed.: Unknown Medication/Allergy Allergies/Adverse Reactions: penicillin V Allergy (Severe, Verified 05/09/18 13:22) Anaphylaxis Review of Systems Constitutional: PRESENT: headache(s). ABSENT: chills, fever(s) Eyes: ABSENT: visual disturbances Cardiovascular: ABSENT: chest pain, edema, orthropnea Respiratory: ABSENT: cough, hemoptysis, sputum Gastrointestinal: PRESENT: nausea. ABSENT: abdominal pain, vomiting Integumentary: PRESENT: erythema, pruritus Neurological: ABSENT: focal weakness Allergic/Immunologic: PRESENT: other - swelling of lips, face, arms, legs Physical Exam Vital Signs: Temp Pulse Resp BP Pulse Ox 97.4 F 91 16 117/75 98 05/09/18 10:45 05/09/18 10:45 05/09/18 10:45 05/09/18 10:45 05/09/18 10:45 General appearance: PRESENT: no acute distress, obese Head exam: PRESENT: atraumatic, normocephalic Eye exam: PRESENT: EOMI. ABSENT: scleral icterus Mouth exam: PRESENT: moist, tongue midline Teeth exam: PRESENT: poor dentation Throat exam: ABSENT: tonsillar erythema, tonsillar exudate Neck exam: ABSENT: tracheal deviation Respiratory exam: PRESENT: clear to auscultation guerita, symmetrical, unlabored. ABSENT: accessory muscle use, stridor, wheezes Cardiovascular exam: PRESENT: +S1, +S2 Pulses: PRESENT: +2 pedal pulses bilateral GI/Abdominal exam: PRESENT: normal bowel sounds, soft, other - well healed scars noted from panniculectomy. ABSENT: tenderness Extremities exam: PRESENT: +1 edema - left arm Neurological exam: PRESENT: alert, altered, oriented to person, oriented to place, oriented to time, oriented to situation Skin exam: PRESENT: other - left side of her upper and lower lips edematous, left arm edema, difficult to assess erythema of skin due to skin complexion Assessment & Plan - Diagnosis (1) Angioedema Qualifiers: Encounter type: initial encounter Qualified Code(s): T78.3XXA - Angioneurotic edema, initial encounter Is this a current diagnosis for this admission?: Yes (2) Allergic reaction caused by a drug Qualifiers: Encounter type: initial encounter Qualified Code(s): T78.40XA - Allergy, unspecified, initial encounter Is this a current diagnosis for this admission?: Yes - Time Critical Time spent with patient: 25-34 minutes Medications reviewed and adjusted accordingly: Yes Anticipated discharge: Home - Inpatient Certification Based on my medical assessment, after consideration of the patient's comorbidities, presenting symptoms, or acuity I expect that the services needed warrant INPATIENT care.: Yes Medical Necessity: Need for Neurological Checks, Risk of Complication if Not Cared For in Hospital - Plan Summary Plan Summary: Angioedema- difficult to say what caused her symptoms. she was on PCN for 10 days prior to arrival to hospital for her toothache. ?allergic reaction. she was also on tramadol for pain. she normally takes ibuprofen for pain in the pain and hasn't had any issues. she has severe swelling of lips, arms and legs. she's stable- not having difficult breathing or swallowing. she received Epi, Prednisone, Pepcid and Benadryl in ED. will placed her in ICU for overnight observation and downgrade tomorrow if she does well. start on Solumedrol 60mg IV Q6H, Benadryl PO Q6h- no IV available in facility, and Pepcid 20mg IV BID. if she develops respiratory distress and unable to maintain airway than she will need to be intubated. I am hoping her symptoms will improve overnight. I have added PCN to her allergy list. I am not so sure if tramadol did this. I will speak to her again about this.
[2018-05-09] MEDS: METHYLPREDNISOLONE INJ 125 MG/2 ML SDV IV SCH (21:57)
[2018-05-09] MEDS: FAMOTIDINE INJ/PF 20 MG/2 ML SDV IV SCH (21:58)
[2018-05-09] MEDS: DIPHENHYDRAMINE HCL 50 MG CAPSULE PO PRN (21:59)
[2018-05-09] MEDS: CITALOPRAM HYDROBROMIDE 20 MG TABLET PO SCH (21:59)
[2018-05-09] MEDS: BUSPIRONE HCL 10 MG TABLET PO SCH (21:59)
[2018-05-10] MEDS ORDERED: ZOLPIDEM TARTRATE 5 MG TABLET ONE (01:03)
[2018-05-10] MEDS: METHYLPREDNISOLONE INJ 125 MG/2 ML SDV IV SCH ×3 (01:08→17:29)
[2018-05-10] MEDS: DIPHENHYDRAMINE HCL 50 MG CAPSULE PO PRN ×2 (01:09→20:17)
[2018-05-10] MEDS ORDERED: ZOLPIDEM TARTRATE 5 MG TABLET PO ONE (01:30)
[2018-05-10 03:15] LABS: HEMATOCRIT 38.7 % (36.0-47.0); MEAN CORPUSCULAR HEMOGLOBIN 27.4 pg (27.0-33.4); MEAN CORPUSCULAR HGB CONC 33.5 g/dL (32.0-36.0); MEAN CORPUSCULAR VOLUME 82 fl (80-97); PLATELET COUNT 360 10^3/uL (150-450); RED BLOOD COUNT 4.73 10^6/uL (3.72-5.28); RED CELL DISTRIBUTION WIDTH 13.9 % (11.5-14.0)
[2018-05-10 03:22] LABS: INTERNATIONAL RATION (INR) 0.99; PROTHROMBIN TIME 13.6 SEC (11.4-15.4)
[2018-05-10 03:30] LABS: ALANINE AMINOTRANSFERASE < 6 U/L (9-52); ALBUMIN 4.1 g/dL (3.5-5.0); ALKALINE PHOSPHATASE 78 U/L (38-126); ANION GAP 16 (5-19); ASPARTATE AMINO TRANSFERASE 17 U/L (14-36); BILIRUBIN,DIRECT 0.2 mg/dL (0.0-0.4); BILIRUBIN,TOTAL 0.4 mg/dL (0.2-1.3); BLOOD UREA NITROGEN 11 mg/dL (7-20); CALCIUM 9.7 mg/dL (8.4-10.2); CARBON DIOXIDE 20 mmol/L (22-30); CHLORIDE 104 mmol/L (98-107); GLUCOSE 192 mg/dL (75-110); POTASSIUM 4.1 mmol/L (3.6-5.0); SODIUM 140.2 mmol/L (137-145); TOTAL PROTEIN 7.6 g/dL (6.3-8.2)
[2018-05-10 03:31] LABS: ABSOLUTE LYMPHOCYTES# (MANUAL) 0.2 10^3/uL (0.5-4.7); ABSOLUTE MONOCYTES # (MANUAL) 0.1 10^3/uL (0.1-1.4); ABSOLUTE NEUTROPHILS# (MANUAL) 10.7 10^3/uL (1.7-8.2); BASOPHILS % (MANUAL) 0 % (0-2); EOSINOPHILS % (MANUAL) 0 % (0-6); LYMPHOCYTES % (MANUAL) 2 % (13-45); MONOCYTES % (MANUAL) 1 % (3-13); SEGMENTED NEUTROPHILS % (MAN) 97 % (42-78); TOTAL CELLS COUNTED 100
[2018-05-10 03:32] LABS: PLATELET COMMENT ADEQUATE; RBC MORPHOLOGY COMMENT NORMO-CYTIC/CHROMIC
--- NOTE | 2018-05-10 10:00 | PSYCHOLOGICAL NOTE ---
Psych Note - Psych Note Psych Note: Reason for consult: suicidal ideation Patient states that she "does not want to be here in the world". Upon further examination patient states that she wants to get in an accident and .Patient is unable to explain why she feels this way but Clinician notes that the left side of the patient's face is swollen and patient appears to be in pain. Patient was unable to disclose the onset of these feelings and then asked the Clinician, "Why are you asking so many questions?" Patient's mood is dysphoric but patient is alert and oriented to person, place, time and circumstance. Patient is in a considerable amount of pain and not comfortable with answering questions. Patient to be re-evaluated in the morning. Medication recommendations per [facility]'s contracted psychiatrist Dr. Tao NYE are as follows Celexa 20mg once daily Buspar 5mg twice daily Diagnosis 296.41 (F31.11) Bipolar I disorder, Mild per patient report Impression/Plan: Patient is recommended mental health hold for overnight observation. Patient endorses passive suicidal ideation with no intent, plans or means. Patient discloses that she is easily angered and has mood swings. Medication recommendations have been submitted. Patient to be re-evaluated in the morning. Dr. Barros was consulted on the care and management of this patient; attending physician is in agreement with recommendations and disposition.
[2018-05-10] MEDS: ENOXAPARIN SODIUM INJ 40 MG/0.4 ML DISP.SYRIN SUBCUT SCH (10:32)
[2018-05-10] MEDS: BUSPIRONE HCL 10 MG TABLET PO SCH ×2 (10:33→21:36)
--- NOTE | 2018-05-10 10:36 | PSYCHOLOGICAL NOTE ---
Psych Note - Psych Note Psych Note: Reason for consult: suicidal ideation 42 year old female presents to the ED and then transferred to ICU for observation. During the check in with the nurse patient discloses that she is suicidal. Patient states that she feels much better this morning with the medication recommendations. Patient reports that she has an anger management problem that is triggered by her lack of patience in social situations. Patient states that her family tells her all the time that she has an anger management problem but to the patient, she feels as though she communicates in a normal manner. Patient claims that she was agitated and in pain from the swelling and that is why she told the nurse that "She no longer wanted to be here, In this world". Patient states that her phone was taken away and that made her angry. Patient denies that she wants to kill herself. Patient's sister is also bedside and states that her sister definitely has a problem with rage but that she does not have any reason to believe that her sister would hurt herself or anyone else. Patient is alert and oriented to person, place, time and circumstance. Patient demonstrates an intact reality based presentation i.e. organized and linear thought process. Eye contact was well maintained. Conversational speech was within normal rate, tone and prosody. Intellectual abilities appear to be within the average range. Attention and concentration are good. Insight, judgment, impulse control are good. Medication recommendations per [facility]'s contracted psychiatrist Dr. Tao NYE are as follows Celexa 20mg once daily Buspar 5mg twice daily Diagnosis 296.41 (F31.11) Bipolar I disorder, Mild per patient report Impression/Plan: Patient is cleared from acute psychiatric services. Patient denies current thoughts of wanting to harm herself and does not have intent, means or plans. Patient states that she has an anger management problem and looses her patience easily. Patient states that she feels better with the medication recommendations and plans to seek outpatient therapy/support groups. Patient's sister is an [employer] and lives a few doors down from the patient and will be assisting the patient upon discharge. Dr. Barros was consulted on the care and management of this patient; attending physician is in agreement with recommendations and disposition.
[2018-05-10 12:03] LABS: URINE AMPHETAMINES SCREEN NEGATIVE; URINE BARBITURATES SCREEN NEGATIVE; URINE BENZODIAZEPINES SCREEN NEGATIVE; URINE COCAINE SCREEN NEGATIVE; URINE MARIJUANA (THC) SCREEN NEGATIVE; URINE METHADONE SCREEN NEGATIVE; URINE PHENCYCLIDINE SCREEN NEGATIVE
--- NOTE | 2018-05-10 12:51 | PDOC PROGRESS REPORT ---
Subjective Progress Note for:: 05/10/18 - seen on rounds this morning Subjective:: states she feels a lot better. states she's eating, speaking and using the bathroom appropriately. her friends are at bedside. she denies any acute complaints at this time. she does however want to go home at this time. Reason For Visit: ANGIOEDEMA Physical Exam Vital Signs: Temp Pulse Resp BP Pulse Ox 97.6 F 105 H 18 132/93 H 100 05/10/18 08:00 05/10/18 11:29 05/10/18 11:29 05/10/18 11:29 05/10/18 11:29 Intake & Output 05/09/18 05/10/18 05/11/18 06:59 06:59 06:59 Intake Total 300 300 Output Total 550 800 Balance -250 -500 Weight 195 lb 5.273 oz General appearance: PRESENT: no acute distress Head exam: PRESENT: atraumatic, normocephalic Eye exam: PRESENT: EOMI, PERRLA. ABSENT: scleral icterus Ear exam: PRESENT: normal external ear exam Mouth exam: PRESENT: moist, tongue midline, other - left lower lip swollen- much improved since yesterday Neck exam: ABSENT: tracheal deviation Respiratory exam: PRESENT: clear to auscultation guerita, symmetrical Cardiovascular exam: PRESENT: +S1, +S2 Pulses: PRESENT: +2 pedal pulses bilateral GI/Abdominal exam: PRESENT: normal bowel sounds, soft. ABSENT: tenderness Extremities exam: PRESENT: other - edema of the arms and legs are resolved almost completely Musculoskeletal exam: PRESENT: full ROM. ABSENT: tenderness Neurological exam: PRESENT: alert, awake, oriented to person, oriented to place , oriented to time, oriented to situation, CN II-XII grossly intact Skin exam: PRESENT: dry, warm. ABSENT: erythema Results Laboratory Results: 05/10/18 03:00 05/10/18 03:00 05/10/18 05/10/18 05/10/18 03:00 03:00 03:00 WBC 11.0 H RBC 4.73 Hgb 13.0 Hct 38.7 MCV 82 MCH 27.4 MCHC 33.5 RDW 13.9 Plt Count 360 Seg Neutrophils % Not Reportable Lymphocytes % Not Reportable Monocytes % Not Reportable Eosinophils % Not Reportable Basophils % Not Reportable Absolute Neutrophils Not Reportable Absolute Lymphocytes Not Reportable Absolute Monocytes Not Reportable Absolute Eosinophils Not Reportable Absolute Basophils Not Reportable Sodium 140.2 Potassium 4.1 Chloride 104 Carbon Dioxide 20 L Anion Gap 16 BUN 11 Creatinine 0.60 Est GFR ( Amer) > 60 Est GFR (Non-Af Amer) > 60 Glucose 192 H Calcium 9.7 Magnesium 1.5 L Total Bilirubin 0.4 AST 17 ALT < 6 L Alkaline Phosphatase 78 Total Protein 7.6 Albumin 4.1 TSH 0.20 L 05/09/18 05/09/18 05/10/18 15:00 21:00 03:00 CK-MB (CK-2) Troponin I < 0.012 < 0.012 < 0.012 05/10/18 03:00 CK-MB (CK-2) 0.75 Troponin I Assessment & Plan - Diagnosis (1) Angioedema Qualifiers: Encounter type: initial encounter Qualified Code(s): T78.3XXA - Angioneurotic edema, initial encounter Is this a current diagnosis for this admission?: Yes (2) Allergic reaction caused by a drug Qualifiers: Encounter type: initial encounter Qualified Code(s): T78.40XA - Allergy, unspecified, initial encounter Is this a current diagnosis for this admission?: Yes - Time Time Spent with patient: 35 or more minutes - Plan Summary Plan Summary: Angioedema- difficult to say what caused her symptoms. she was on PCN for 10 days prior to arrival to hospital for her toothache. ?allergic reaction. she was also on tramadol for pain- but states she only took one dose about 12 days ago and none since then. her symptoms are resolving- her lip are still somewhat swollen- but much better than yesterday. i have lowered to solumedrol to 60mg IV bid. c/w benadryl PRN and pepcid. i think she will be able to discharge in AM if she continues to improve. will need a short taper of her prednisone. i had long conversation with her and her friends about her care and management. she tells me that she has a lot of stress at home and family. she's from [facility] and has family there. she's going through a divorce and also she has a lot of financial hardship and hence working hard every. states she cannot sleep for years now- someone told her that benadryl has no side effects and hence she was taking 5-7 pills nightly. she was also crushing ibuprofen and mixing it with the benadryl to help try sleep. yesterday after admission she had told the nurse in ICU that she had thoughts of hurting herself. Psych evaluated patient and started her on buspar and celexa. today they started her on ambien for sleep. psych requests that i prescribe her these meds prior to discharge. i am not comfortable prescribing ambien with its addictive properties, i will give her a 2 week supply and she can follow up with her PCP and psych outpatient for further refill will transfer her out to Tele today- hopefully d/c in AM
[2018-05-10] MEDS: ACETAMINOPHEN 325 MG TABLET PO PRN (14:24)
[2018-05-10] MEDS: FAMOTIDINE INJ/PF 20 MG/2 ML SDV IV SCH (16:07)
[2018-05-10] MEDS: ZOLPIDEM TARTRATE 5 MG TABLET PO SCH (21:36)
[2018-05-10] MEDS: FAMOTIDINE 20 MG TABLET PO SCH (21:36)
[2018-05-10] MEDS: CITALOPRAM HYDROBROMIDE 20 MG TABLET PO SCH (21:36)
[2018-05-11] MEDS: DIPHENHYDRAMINE HCL 50 MG CAPSULE PO PRN ×4 (03:08→21:22)
[2018-05-11 05:33] LABS: HEMATOCRIT 35.8 % (36.0-47.0); HEMOGLOBIN 11.8 g/dL (12.0-15.5); MEAN CORPUSCULAR HEMOGLOBIN 26.8 pg (27.0-33.4); MEAN CORPUSCULAR VOLUME 81 fl (80-97); PLATELET COUNT 347 10^3/uL (150-450); RED BLOOD COUNT 4.41 10^6/uL (3.72-5.28); RED CELL DISTRIBUTION WIDTH 14.3 % (11.5-14.0); WHITE BLOOD COUNT 19.1 10^3/uL (4.0-10.5)
[2018-05-11] MEDS: METHYLPREDNISOLONE INJ 125 MG/2 ML SDV IV SCH ×2 (06:01→18:53)
[2018-05-11] MEDS: ACETAMINOPHEN 325 MG TABLET PO PRN ×3 (06:07→21:01)
[2018-05-11 06:16] LABS: ABSOLUTE LYMPHOCYTES# (MANUAL) 1.1 10^3/uL (0.5-4.7); ABSOLUTE MONOCYTES # (MANUAL) 0.8 10^3/uL (0.1-1.4); ABSOLUTE NEUTROPHILS# (MANUAL) 17.2 10^3/uL (1.7-8.2); BASOPHILS % (MANUAL) 0 % (0-2); EOSINOPHILS % (MANUAL) 0 % (0-6); LYMPHOCYTES % (MANUAL) 6 % (13-45); MONOCYTES % (MANUAL) 4 % (3-13); SEGMENTED NEUTROPHILS % (MAN) 90 % (42-78); TOTAL CELLS COUNTED 100
[2018-05-11 06:18] LABS: HELMET CELLS 1+; OVALOCYTES 2+; PLATELET COMMENT ADEQUATE; POIKILOCYTOSIS 1+; TEAR DROP CELLS SLIGHT; TOXIC GRANULATION 1+
[2018-05-11] MEDS: BUSPIRONE HCL 10 MG TABLET PO SCH ×2 (09:07→21:03)
[2018-05-11] MEDS: FAMOTIDINE 20 MG TABLET PO SCH ×2 (09:07→21:22)
[2018-05-11] MEDS: ENOXAPARIN SODIUM INJ 40 MG/0.4 ML DISP.SYRIN SUBCUT SCH (09:08)
[2018-05-11] MEDS ORDERED: NORMAL SALINE 250 ML IV PRN ×2 (09:52)
[2018-05-11] MEDS ORDERED: NORMAL SALINE 1000 ML 1,000 ML IV PRN (09:55)
[2018-05-11] MEDS ORDERED: EPINEPHRINE INJ 1 MG/10 ML DISP.SYRIN INJ ONE ×2 (10:30→17:16)
[2018-05-11] MEDS: MAG HYDROX/AL HYDROX/SIMETH SUSP 30 ML UDCUP PO SCH ×4 (11:27→21:30)
--- NOTE | 2018-05-11 11:48 | PDOC PROGRESS REPORT ---
Subjective Progress Note for:: 05/11/18 - seen on rounds this morning and again in late morning Subjective:: saw her this morning and her swelling had almost resolved. she was doing well- was planning for discharge. her WBC was elevated and was getting an ESR prior to discharge to make sure this is not infection. but then called by nursing around 10 that she has swelling again of her mouth and lips. went and spoke with patient Reason For Visit: ANGIOEDEMA Physical Exam Vital Signs: Temp Pulse Resp BP Pulse Ox 97.8 F 79 18 133/87 H 99 05/11/18 10:16 05/11/18 10:16 05/11/18 10:16 05/11/18 10:16 05/11/18 11:20 Intake & Output 05/10/18 05/11/18 05/12/18 06:59 06:59 06:59 Intake Total 300 1177 Output Total 550 800 Balance -250 377 Weight 195 lb 5.273 oz 192 lb 3.889 oz General appearance: PRESENT: no acute distress Head exam: PRESENT: atraumatic, normocephalic Eye exam: PRESENT: EOMI, PERRLA. ABSENT: scleral icterus Ear exam: PRESENT: normal external ear exam Mouth exam: PRESENT: neck supple, other - right lower lip mild edema Neck exam: ABSENT: tracheal deviation Respiratory exam: PRESENT: clear to auscultation guerita, symmetrical. ABSENT: rhonchi, wheezes Cardiovascular exam: PRESENT: +S1, +S2 Pulses: PRESENT: +2 pedal pulses bilateral GI/Abdominal exam: PRESENT: normal bowel sounds, soft. ABSENT: tenderness Extremities exam: PRESENT: other - generalized on the arms- some mild edema- faint erythema of the forearm- difficult to assess since she's Neurological exam: PRESENT: alert, awake, oriented to person, oriented to place , oriented to time, oriented to situation, CN II-XII grossly intact Skin exam: PRESENT: dry, urticaria, warm Results Laboratory Results: 05/11/18 05:13 05/10/18 03:00 05/10/18 05/11/18 05/11/18 03:00 05:13 05:13 WBC 19.1 H RBC 4.41 Hgb 11.8 L Hct 35.8 L MCV 81 MCH 26.8 L MCHC 33.0 RDW 14.3 H Plt Count 347 Seg Neutrophils % Not Reportable Lymphocytes % Not Reportable Monocytes % Not Reportable Eosinophils % Not Reportable Basophils % Not Reportable Absolute Neutrophils Not Reportable Absolute Lymphocytes Not Reportable Absolute Monocytes Not Reportable Absolute Eosinophils Not Reportable Absolute Basophils Not Reportable Magnesium 1.7 Free T4 0.98 Blood Type 05/11/18 10:28 WBC RBC Hgb Hct MCV MCH MCHC RDW Plt Count Seg Neutrophils % Lymphocytes % Monocytes % Eosinophils % Basophils % Absolute Neutrophils Absolute Lymphocytes Absolute Monocytes Absolute Eosinophils Absolute Basophils Magnesium Free T4 Blood Type B POSITIVE 05/09/18 05/09/18 05/10/18 15:00 21:00 03:00 CK-MB (CK-2) Troponin I < 0.012 < 0.012 < 0.012 05/10/18 03:00 CK-MB (CK-2) 0.75 Troponin I Assessment & Plan - Diagnosis (1) Angioedema Qualifiers: Encounter type: initial encounter Qualified Code(s): T78.3XXA - Angioneurotic edema, initial encounter Is this a current diagnosis for this admission?: Yes (2) Allergic reaction caused by a drug Qualifiers: Encounter type: initial encounter Qualified Code(s): T78.40XA - Allergy, unspecified, initial encounter Is this a current diagnosis for this admission?: Yes (3) GERD (gastroesophageal reflux disease) Qualifiers: Esophagitis presence: without esophagitis Qualified Code(s): K21.9 - Gastro -esophageal reflux disease without esophagitis Is this a current diagnosis for this admission?: Yes (4) Depression Is this a current diagnosis for this admission?: Yes - Time Time Spent with patient: 35 or more minutes Within: within 72 hours - Inpatient Certification Based on my medical assessment, after consideration of the patient's comorbidities, presenting symptoms, or acuity I expect that the services needed warrant INPATIENT care.: Yes I certify that my determination is in accordance with my understanding of Medicare's requirements for reasonable and necessary INPATIENT services [42 CFR 412.3e].: Yes Medical Necessity: Need Close Monitoring Due to Risk of Patient Decompensation, Need For Continuous Telemetry Monitoring, Risk of Complication if Not Cared For in Hospital - Plan Summary Plan Summary: Angioedema- her swelling had almost resolved this morning when i went to see her but then she had another episode of swelling- she did get benadryl for it and her swelling subsided. prior to swelling she had her dose of buspar - which she did have last night. i am not sure what is triggering her symptoms. I did order EPI and FFP for concern for C1 esterase inhibitor def. c/w solumedrol, benadryl and pepcid for now. i had a long discussion with patient about her symptoms and triggers. initially she came because of angio edema - difficult to say what caused her symptoms at first - she was on PCN for 10 days prior to arrival to hospital for her toothache. ?allergic reaction. she was also on tramadol for pain- but states she only took one dose about 12 days ago and none since then. GERD- she's also c/o heart burn- i have ordered her maalox on top of the heart burn. states she had same burning sensation years ago. depression- she was evaluated by psych due to concern for depression- after admission she had told the nurse in ICU that she had thoughts of hurting herself. Psych evaluated patient and started her on buspar and celexa. they also started her on ambien for sleep. psych requests that i prescribe her these meds prior to discharge. i am not comfortable prescribing ambien with its addictive properties, i will give her a 2 week supply and she can follow up with her PCP and psych outpatient for further refill today her friend was at bedside- she has been friends with patient for 6 years. she tells me that patient was recently in "[place]" for panniculectomy procedure a few months ago. on the way back she had syncope- she was near [place] and take to [facility]- there she was admitted for >3 weeks- she's not sure why but does tell me that she had "allergy" to some medicine that was given to her. patient did not tell me any of this. i have not confronted patient about this history. I have asked nursing to request records from [facility] [place]. she will no longer be discharged given these new findings. i spent greater than 35 mins in patient care today- 50% of it was spent counseling and coordinating care.
[2018-05-11] MEDS: CITALOPRAM HYDROBROMIDE 20 MG TABLET PO SCH (21:22)
[2018-05-11] MEDS: ZOLPIDEM TARTRATE 5 MG TABLET PO SCH (21:28)
[2018-05-12] MEDS: DIPHENHYDRAMINE HCL 50 MG CAPSULE PO PRN ×4 (04:27→22:35)
[2018-05-12] MEDS: METHYLPREDNISOLONE INJ 125 MG/2 ML SDV IV SCH ×2 (05:12→18:35)
[2018-05-12 05:24] LABS: HEMATOCRIT 35.2 % (36.0-47.0); HEMOGLOBIN 11.8 g/dL (12.0-15.5); MEAN CORPUSCULAR HEMOGLOBIN 27.2 pg (27.0-33.4); MEAN CORPUSCULAR HGB CONC 33.4 g/dL (32.0-36.0); MEAN CORPUSCULAR VOLUME 82 fl (80-97); PLATELET COUNT 349 10^3/uL (150-450); RED BLOOD COUNT 4.31 10^6/uL (3.72-5.28); RED CELL DISTRIBUTION WIDTH 14.2 % (11.5-14.0); WHITE BLOOD COUNT 16.2 10^3/uL (4.0-10.5)
[2018-05-12 05:55] LABS: ANION GAP 13 (5-19); BLOOD UREA NITROGEN 13 mg/dL (7-20); CALCIUM 9.4 mg/dL (8.4-10.2); CARBON DIOXIDE 28 mmol/L (22-30); CHLORIDE 102 mmol/L (98-107); GLUCOSE 153 mg/dL (75-110); SODIUM 143.4 mmol/L (137-145)
[2018-05-12 06:13] LABS: ABSOLUTE MONOCYTES # (MANUAL) 0.2 10^3/uL (0.1-1.4); ABSOLUTE NEUTROPHILS# (MANUAL) 15.1 10^3/uL (1.7-8.2); BASOPHILS % (MANUAL) 0 % (0-2); EOSINOPHILS % (MANUAL) 0 % (0-6); LYMPHOCYTES % (MANUAL) 5 % (13-45); MONOCYTES % (MANUAL) 1 % (3-13); SEGMENTED NEUTROPHILS % (MAN) 93 % (42-78); TOTAL CELLS COUNTED 100
[2018-05-12 06:16] LABS: POIKILOCYTOSIS 2+; TOXIC GRANULATION 1+
[2018-05-12 06:17] LABS: OVALOCYTES SLIGHT; PLATELET COMMENT ADEQUATE; TARGET CELLS 1+; TEAR DROP CELLS 1+
[2018-05-12] MEDS: BUSPIRONE HCL 10 MG TABLET PO SCH (09:53)
[2018-05-12] MEDS: MAG HYDROX/AL HYDROX/SIMETH SUSP 30 ML UDCUP PO SCH ×4 (10:11→21:37)
[2018-05-12] MEDS: FAMOTIDINE 20 MG TABLET PO SCH ×2 (10:11→21:37)
[2018-05-12] MEDS: ENOXAPARIN SODIUM INJ 40 MG/0.4 ML DISP.SYRIN SUBCUT SCH (10:12)
--- NOTE | 2018-05-12 13:23 | PDOC CONSULTATION ---
Consultation Consult Date: 05/12/18 Attending physician:: GEOVANNA JACKSON Consult reason:: Dysphagia and epigastric pain History of Present Illness Admission Date/PCP: 05/09/18 12:28 History of Present Illness: NICOLA KITCHEN is a 42 year old female Asked to see this patient by the Hospitalist service patient admitted for angioedema however she is having epigastric pain and dysphagia patient has a history of NSAID use ? if she has stricture patient will need an EGD patient denies any chest pain work up being done for angioedema patient denies use of HCTZ or CHELY inhibitors Past Medical History Cardiac Medical History: Reports: Hypertension GI Medical History: Reports: Gastroesophageal Reflux Disease Psychiatric Medical History: Reports: Depression Past Surgical History Past Surgical History: Reports: Cholecystectomy, Other - panniculectomy Social History Lives with: Alone Smoking Status: Never Smoker Frequency of Alcohol Use: None Hx Recreational Drug Use: No Drugs: None Hx Prescription Drug Abuse: No - Advance Directive Resuscitation Status: Full Code Family History Family History: Reviewed & Not Pertinent Parental Family History Reviewed: Yes Children Family History Reviewed: Unknown Sibling(s) Family History Reviewed.: Unknown Medication/Allergy Home Medications: No Home Medications 05/09/18 Allergies/Adverse Reactions: penicillin V Allergy (Severe, Verified 05/09/18 13:22) Anaphylaxis buspirone [From BuSpar] Adverse Reaction (Verified 05/12/18 07:39) Hives Review of Systems Constitutional: ABSENT: fever(s), headache(s), night sweats, weakness Eyes: ABSENT: visual disturbances Ears: ABSENT: hearing changes Nose, Mouth, and Throat: ABSENT: mouth pain, sore throat Cardiovascular: ABSENT: edema, orthropnea Respiratory: ABSENT: dyspnea, hemoptysis Gastrointestinal: PRESENT: dysphagia. ABSENT: hematemesis, hematochezia, melena Genitourinary: ABSENT: dysuria, hematuria Musculoskeletal: ABSENT: deformity, joint swelling Integumentary: ABSENT: pruritus Neurological: ABSENT: syncope, tingling, tremor(s), vertigo Endocrine: ABSENT: polydipsia, polyphagia, polyuria Physical Exam Vital Signs: Temp Pulse Resp BP Pulse Ox 98.4 F 81 18 121/71 97 05/12/18 12:43 05/12/18 12:43 05/12/18 12:43 05/12/18 12:43 05/12/18 12:43 Intake & Output 05/11/18 05/12/18 05/13/18 06:59 06:59 06:59 Intake Total 1177 2239 Output Total 800 Balance 377 2239 Weight 87.2 kg 93.8 kg General appearance: PRESENT: no acute distress Head exam: PRESENT: normocephalic Eye exam: PRESENT: EOMI, PERRLA. ABSENT: nystagmus, periorbital swelling, scleral icterus Mouth exam: PRESENT: moist, neck supple Throat exam: ABSENT: tonsillar exudate, tonsillogmegaly Neck exam: ABSENT: meningismus, tenderness, thyromegaly Respiratory exam: PRESENT: symmetrical, unlabored. ABSENT: tachypnea, wheezes Cardiovascular exam: PRESENT: +S1, +S2 GI/Abdominal exam: PRESENT: soft. ABSENT: rebound, rigid, tenderness Extremities exam: ABSENT: joint swelling Neurological exam: PRESENT: oriented to time, oriented to situation, CN II-XII grossly intact Skin exam: PRESENT: normal color. ABSENT: mottled, pallor, urticaria, vesicles Results Laboratory Results: 05/12/18 04:57 05/12/18 04:57 05/11/18 05/12/18 05/12/18 10:28 04:57 04:57 WBC 16.2 H RBC 4.31 Hgb 11.8 L Hct 35.2 L MCV 82 MCH 27.2 MCHC 33.4 RDW 14.2 H Plt Count 349 Seg Neutrophils % Not Reportable Lymphocytes % Not Reportable Monocytes % Not Reportable Eosinophils % Not Reportable Basophils % Not Reportable Absolute Neutrophils Not Reportable Absolute Lymphocytes Not Reportable Absolute Monocytes Not Reportable Absolute Eosinophils Not Reportable Absolute Basophils Not Reportable Sodium 143.4 Potassium 4.0 Chloride 102 Carbon Dioxide 28 Anion Gap 13 BUN 13 Creatinine 0.49 L Est GFR ( Amer) > 60 Est GFR (Non-Af Amer) > 60 Glucose 153 H Calcium 9.4 Magnesium 2.0 Blood Type B POSITIVE 05/09/18 05/09/18 05/10/18 15:00 21:00 03:00 CK-MB (CK-2) Troponin I < 0.012 < 0.012 < 0.012 05/10/18 03:00 CK-MB (CK-2) 0.75 Troponin I Assessment & Plan - Diagnosis (1) GERD (gastroesophageal reflux disease) Qualifiers: Esophagitis presence: without esophagitis Qualified Code(s): K21.9 - Gastro -esophageal reflux disease without esophagitis Is this a current diagnosis for this admission?: Yes Plan: associated with dysphagia and epigastric pain she does have a history of NSAID use will need EGD however will schedule with Propofol with anesthesia work up in case she may need intubation for respiratory support Risks, benefits and alternatives are explained to the patient in detail further recommendations to follow - Time Time Spent: 50 to 70 Minutes
--- NOTE | 2018-05-12 18:55 | PDOC PROGRESS REPORT ---
Subjective Progress Note for:: 05/12/18 - Seen on rounds early this morning Subjective:: Patient states she feels much better this morning. States last night when she had the BuSpar she again broke out into wheals and urticarial hives. Nursing has added BuSpar into her allergy list. This might explain what happened to her earlier yesterday morning when she had the BuSpar. This morning she is complaining of heartburn again and states that it is worse today with her food at breakfast. I discussed with her about getting an EGD in the morning and she is agreeable. Reason For Visit: ANGIOEDEMA Physical Exam Vital Signs: Temp Pulse Resp BP Pulse Ox 98.4 F 81 18 121/71 97 05/12/18 12:43 05/12/18 12:43 05/12/18 12:43 05/12/18 12:43 05/12/18 12:43 Intake & Output 05/11/18 05/12/18 05/13/18 06:59 06:59 06:59 Intake Total 1177 2239 Output Total 800 Balance 377 2239 Weight 192 lb 3.889 oz 206 lb 12.697 oz General appearance: PRESENT: no acute distress Head exam: PRESENT: atraumatic, normocephalic Eye exam: PRESENT: EOMI, PERRLA. ABSENT: scleral icterus Ear exam: PRESENT: normal external ear exam Mouth exam: PRESENT: tongue midline Neck exam: ABSENT: tracheal deviation Respiratory exam: PRESENT: decreased breath sounds, symmetrical Cardiovascular exam: PRESENT: +S1, +S2 Pulses: PRESENT: +2 pedal pulses bilateral GI/Abdominal exam: PRESENT: normal bowel sounds, soft. ABSENT: tenderness Extremities exam: ABSENT: pedal edema Skin exam: PRESENT: dry, urticaria - Minimal urticarial rashes noted on the right upper arm, warm Results Laboratory Results: 05/12/18 04:57 05/12/18 04:57 05/11/18 05/12/18 05/12/18 10:28 04:57 04:57 WBC 16.2 H RBC 4.31 Hgb 11.8 L Hct 35.2 L MCV 82 MCH 27.2 MCHC 33.4 RDW 14.2 H Plt Count 349 Seg Neutrophils % Not Reportable Lymphocytes % Not Reportable Monocytes % Not Reportable Eosinophils % Not Reportable Basophils % Not Reportable Absolute Neutrophils Not Reportable Absolute Lymphocytes Not Reportable Absolute Monocytes Not Reportable Absolute Eosinophils Not Reportable Absolute Basophils Not Reportable Sodium 143.4 Potassium 4.0 Chloride 102 Carbon Dioxide 28 Anion Gap 13 BUN 13 Creatinine 0.49 L Est GFR ( Amer) > 60 Est GFR (Non-Af Amer) > 60 Glucose 153 H Calcium 9.4 Magnesium 2.0 Blood Type B POSITIVE 05/09/18 05/09/18 05/10/18 15:00 21:00 03:00 CK-MB (CK-2) Troponin I < 0.012 < 0.012 < 0.012 05/10/18 03:00 CK-MB (CK-2) 0.75 Troponin I Assessment & Plan - Diagnosis (1) Angioedema Qualifiers: Encounter type: initial encounter Qualified Code(s): T78.3XXA - Angioneurotic edema, initial encounter Is this a current diagnosis for this admission?: Yes (2) Allergic reaction caused by a drug Qualifiers: Encounter type: initial encounter Qualified Code(s): T78.40XA - Allergy, unspecified, initial encounter Is this a current diagnosis for this admission?: Yes (3) GERD (gastroesophageal reflux disease) Qualifiers: Esophagitis presence: without esophagitis Qualified Code(s): K21.9 - Gastro -esophageal reflux disease without esophagitis Is this a current diagnosis for this admission?: Yes (4) Depression Is this a current diagnosis for this admission?: Yes (5) Tachycardia Is this a current diagnosis for this admission?: Yes - Time Time Spent with patient: 15-24 minutes - Plan Summary Plan Summary: Angioedema-initially she had angioedema due to suspected penicillin. After 2 days she again had swelling and urticarial rash in the morning of 05/11/18. After taking her BuSpar again on 05/11 in the evening she broke out in hives and hence it was confirmed that was what was causing her reaction the second time. I am not sure if the penicillin and the BuSpar related. Yesterday I had sent out multiple blood work to make sure that her initial angioedema has a workup. A lot of her labs are still pending and needs to be followed up by patient and the team from tomorrow. I have continued her on Solu-Medrol, Benadryl and Pepcid for now. 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 initially she came because of angio edema - difficult to say what caused her symptoms at first - she was on PCN for 10 days prior to arrival to hospital for her toothache. ?allergic reaction. she was also on tramadol for pain- but states she only took one dose about 12 days ago and none since then. GERD- she's also c/o heart burn- i have ordered her maalox on top of the heart burn. Again she is complaining of heartburn today and is associated with food. She was taking ibuprofen every day and sometimes without any food. I believe she might have gastritis or ulcers at worst. I have consulted GI for possible EGD in the morning. I appreciate assistance from GI regarding this matter. depression-after admission to the hospital she had disclosed to ICU nursing that she had thoughts of hurting herself. Psych was consulted and they started her on Celexa and BuSpar. Unfortunately BuSpar had given her a rash and hence it is part of her allergy list now. We have continued her Celexa and have spoken to psych again today and they are recommending starting on Inderal 10 mg twice daily. they also started her on ambien for sleep. psych requests that i prescribe her these meds prior to discharge. i am not comfortable prescribing ambien with its addictive properties, i will give her a 2 week supply and she can follow up with her PCP and psych outpatient for further refill Tachycardia-doing well today nursing had brought to my attention that her telemetry monitoring had recorded intermittent tachycardia with heart rate greater than 100 at times. She will be placed on Inderal by psych. I have also ordered an echocardiogram to evaluate her heart function regarding this matter. today her friend was at bedside- she has been friends with patient for 6 years. she tells me that patient was recently in "[place]" for panniculectomy procedure a few months ago. on the way back she had syncope- she was near [place] and take to [facility]- there she was admitted for >3 weeks- she's not sure why but does tell me that she had "allergy" to some medicine that was given to her. patient did not tell me any of this. [place] [facility] [place] [place]-I have reviewed the pertinent findings from [facility] when she was admitted. There is no mention of any allergies to medications. She did have an infection which was treated with antibiotics.
[2018-05-12] MEDS: ZOLPIDEM TARTRATE 5 MG TABLET PO SCH (21:37)
[2018-05-12] MEDS: CITALOPRAM HYDROBROMIDE 20 MG TABLET PO SCH (21:37)
[2018-05-12] MEDS: PROPRANOLOL HCL 10 MG TABLET PO SCH (21:37)
[2018-05-12] MEDS ORDERED: DIPHENHYDRAMINE HCL 50 MG/ML VIAL IV ONE (22:00)
[2018-05-13] MEDS: METHYLPREDNISOLONE INJ 125 MG/2 ML SDV IV SCH (06:50)
--- NOTE | 2018-05-13 07:27 | EKG REPORT ---
SEVERITY:- NORMAL ECG - SINUS RHYTHM : Confirmed by: Satish Rod 13-May-2018 07:25:47
[2018-05-13] MEDS: MAG HYDROX/AL HYDROX/SIMETH SUSP 30 ML UDCUP PO SCH ×4 (09:30→22:06)
--- NOTE | 2018-05-13 10:15 | XCELERA REPORT ---
[address] [address] Transthoracic Echocardiogram Report Name: NICOLA KITCHEN Age: 42 yrs Gender: Female : 1975 Patient Status: Inpatient [facility] Study Date: 05/12/2018 08:27 PM Height: 65 in Weight: 206 lb BSA: 2.0 m2 Procedure: A complete two-dimensional transthoracic echocardiogram was performed (2D, M-mode, spectral and color flow Doppler). The study was technically adequate with some images being suboptimal in quality. Reason For Study: tachycardia Ordering Physician: CELESTINO ROLAND Performed By: Amanda Kan Interpretation Summary The left ventricular ejection fraction is normal. LV diastolic function could not be adequately assessed. The left ventricle is grossly normal size. Wall motion cannot be accurately commented on, but no definite regional wall motion abnormalities noted. The right ventricular systolic function is normal. The left atrial size is normal. The right atrium is normal in size There is no mitral regurgitation noted. There is no mitral valve stenosis. No aortic regurgitation is present. There is no aortic valve stenosis There is a trace or physiologic amount of tricuspid regurgitation Tricuspid regurgitation jet envelope not well defined to measure RV systolic pressure accurately. The aortic root is not well visualized but is probably normal size. The inferior vena cava appeared normal and decreased > 50% with respiration (RAP 5-10 mmHg) There is no pericardial effusion. MMode/2D Measurements & Calculations RVDd: 2.2 cm LVIDd: 4.1 cm FS: 41.7 % Ao root diam: 2.5 cm IVSd: 0.89 cm LVIDs: 2.4 cm EDV(Teich): 72.8 ml Ao root area: 4.8 cm2 LVPWd: 0.78 cm ESV(Teich): 19.5 ml LA dimension: 2.8 cm EF(Teich): 73.2 % Doppler Measurements & Calculations MV E max shikha: MV P1/2t max shikha: Ao V2 max: LV V1 max P.0 cm/sec 133.0 cm/sec 156.1 cm/sec 6.1 mmHg MV A max shikha: MV P1/2t: 51.1 msec Ao max PG: LV V1 max: 62.7 cm/sec MVA(P1/2t): 4.3 cm2 9.7 mmHg 123.9 cm/sec MV E/A: 1.8 MV dec slope: 763.1 cm/sec2 MV dec time: 0.15 sec TV V2 max: PA V2 max: TR max shikha: MV P1/2t-pr_phl: 124.9 cm/sec 116.7 cm/sec 187.3 cm/sec 51.1 msec TV max P.2 mmHgPA max P.5 mmHg TR max P.0 mmHg Left Ventricle The left ventricle is grossly normal size. There is borderline concentric left ventricular hypertrophy. The left ventricular ejection fraction is normal. LV diastolic function could not be adequately assessed. Wall motion cannot be accurately commented on, but no definite regional wall motion abnormalities noted. Right Ventricle The right ventricle is grossly normal size. There is normal right ventricular wall thickness. The right ventricular systolic function is normal. Atria The right atrium is normal in size. The left atrial size is normal. Interarterial septum not well visualized and not well dopplered. Cannot comment on ASD/PFO presence. Mitral Valve The mitral valve is grossly normal. There is no mitral valve stenosis. There is no mitral regurgitation noted. Aortic Valve The aortic valve is grossly normal. There is no aortic valve stenosis. No aortic regurgitation is present. Tricuspid Valve The tricuspid valve is not well visualized secondary to technical limitations. There is no tricuspid stenosis. There is a trace or physiologic amount of tricuspid regurgitation. Tricuspid regurgitation jet envelope not well defined to measure RV systolic pressure accurately. Pulmonic Valve The pulmonic valve is not well visualized. Great Vessels The aortic root is not well visualized but is probably normal size. The inferior vena cava appeared normal and decreased > 50% with respiration (RAP 5-10 mmHg). Effusions There is no pericardial effusion. : CELESTINO ROLAND > Satish Rod
[2018-05-13] MEDS ORDERED: RINGERS SOLUTION,LACTATED 1,000 ML IV PRN (10:37)
[2018-05-13] MEDS ORDERED: PROPOFOL INJ 200 MG/20 ML VIAL IV ONE (11:24)
[2018-05-13] MEDS ORDERED: MIDAZOLAM 2 MG/2 ML INJ ONE (11:24)
[2018-05-13] MEDS ORDERED: ALBUTEROL SULFATE HFA (90 MCG/PUFF) 200 PUFF/8.5 GM MDI IH ONE (11:24)
--- NOTE | 2018-05-13 12:11 | Operative Report ---
Operative Report DATE OF SURGERY: 05/13/18 Operative Report: The risks benefits and alternatives of the procedure explained to the patient in detail and informed consent is obtained.A GIF Olympus video scope was inserted into the patient's mouth and hypopharynx, the esophagus is identified intubated and insufflated, the scope was then advanced through the esophagus stomach and duodenum ,retroflexion maneuver is done the esophagus stomach and first and second portions of the duodenum examined PREOPERATIVE DIAGNOSIS: Dysphagia, epigastric pain and burning POSTOPERATIVE DIAGNOSIS: Possible Christine esophagitis status post brushing for confirmation. Gastritis status post biopsy rule out Helicobacter pylori. No esophageal mass or ulcer. No stricture noted OPERATION: EGD with biopsy SURGEON: GEOVANNA JACKSON ANESTHESIA: Moderate Sedation TISSUE REMOVED OR ALTERED: As noted above. COMPLICATIONS: None. ESTIMATED BLOOD LOSS: None. INTRAOPERATIVE FINDINGS: As noted above. PROCEDURE: Patient tolerated the procedure well. No immediate postprocedure complications are noted. Patient sent back to her room in good condition. Resume previous medications. Resume previous activity level. Resume diet. Wait on pathology for treatment. Follow-up as necessary
[2018-05-13] MEDS: FAMOTIDINE 20 MG TABLET PO SCH ×2 (14:12→22:06)
[2018-05-13] MEDS: PROPRANOLOL HCL 10 MG TABLET PO SCH ×2 (14:12→22:06)
[2018-05-13] MEDS: DIPHENHYDRAMINE HCL 50 MG CAPSULE PO PRN ×2 (14:12→20:31)
[2018-05-13] MEDS: ENOXAPARIN SODIUM INJ 40 MG/0.4 ML DISP.SYRIN SUBCUT SCH (14:14)
[2018-05-13] MEDS ORDERED: METHYLPREDNISOLONE INJ 125 MG/2 ML SDV IV SCH (17:36)
[2018-05-13 17:37] LABS: HEPATITIS B CORE AB IGM Negative (Negative); HEPATITIS B CORE AB TOT Negative (Negative); HEPATITIS BE AB Negative (Negative); HEPATITIS BE ANTIGEN Negative (Negative); HEPATITIS C VIRUS AB <0.1 s/co ratio (0.0-0.9); HEPATITS B SURFACE ANTIGEN Negative (Negative)
[2018-05-13] MEDS: METHYLPREDNISOLONE INJ 40 MG/1 ML SDV IV SCH (18:56)
[2018-05-13] MEDS: HYDROCORTISONE 1% CREAM 28.35 GM TP SCH (18:56)
[2018-05-13] MEDS: CITALOPRAM HYDROBROMIDE 20 MG TABLET PO SCH (22:06)
[2018-05-13] MEDS: ZOLPIDEM TARTRATE 5 MG TABLET PO SCH (22:06)
[2018-05-14 01:44] LABS: ANTINUCLEAR ANTIBODIES Negative (Negative); HEPATITIS B SURFACE AB QUAL Non Reactive (.)
[2018-05-14] MEDS: DIPHENHYDRAMINE HCL 50 MG CAPSULE PO PRN ×2 (03:22→09:29)
[2018-05-14] MEDS: METHYLPREDNISOLONE INJ 40 MG/1 ML SDV IV SCH (05:29)
[2018-05-14] MEDS: FAMOTIDINE 20 MG TABLET PO SCH (09:29)
[2018-05-14] MEDS: ENOXAPARIN SODIUM INJ 40 MG/0.4 ML DISP.SYRIN SUBCUT SCH (09:29)
[2018-05-14] MEDS: MAG HYDROX/AL HYDROX/SIMETH SUSP 30 ML UDCUP PO SCH ×2 (09:29→14:17)
[2018-05-14] MEDS: HYDROCORTISONE 1% CREAM 28.35 GM TP SCH (09:33)
[2018-05-14] MEDS: PROPRANOLOL HCL 10 MG TABLET PO SCH (10:27)
[2018-05-14 11:42] LABS: D001-IGE D PTERONYSSINUS <0.10 kU/L (Class 0); D002-IGE D FARINAE MITE <0.10 kU/L (Class 0); E001-IGE CAT DANDER <0.10 kU/L (Class 0); E005-IGE DOG DANDER <0.10 kU/L (Class 0); F002-IGE MILK (COW) <0.10 kU/L (Class 0); F003-IGE CODFISH <0.10 kU/L (Class 0); F004-IGE WHEAT <0.10 kU/L (Class 0); F008-IGE CORN <0.10 kU/L (Class 0); F013-IGE PEANUT <0.10 kU/L (Class 0); F014-IGE SOYBEAN <0.10 kU/L (Class 0); F026-IGE PORK <0.10 kU/L (Class 0); F027-IGE BEEF <0.10 kU/L (Class 0); F040-IGE TUNA <0.10 kU/L (Class 0); F041-IGE SALMON <0.10 kU/L (Class 0); F050-IGE MACKEREL <0.10 kU/L (Class 0); F052-IGE CHOCOLATE/COCOA <0.10 kU/L (Class 0); F084-IGE KIWI FRUIT <0.10 kU/L (Class 0); F092-IGE BANANA 0.12 kU/L (Class 0/I); F096-IGE AVOCADO <0.10 kU/L (Class 0); F204-IGE TROUT <0.10 kU/L (Class 0); F245-IGE EGG WHOLE <0.10 kU/L (Class 0); F299-IGE SWEET CHESTNUT <0.10 kU/L (Class 0); F303-IGE HALIBUT <0.10 kU/L (Class 0); G002-IGE BERMUDA GRASS <0.10 kU/L (Class 0); G008-IGE BLUEGRASS KENTUCKY <0.10 kU/L (Class 0); K082-IGE LATEX <0.10 kU/L (Class 0); M006-IGE ALTERNARIA ALTERNATA <0.10 kU/L (Class 0); T007-IGE OAK WHITE <0.10 kU/L (Class 0); T008-IGE ELM AMERICAN (WHITE <0.10 kU/L (Class 0); W001-IGE RAGWEED SHORT/COMMO <0.10 kU/L (Class 0); W009-IGE PLANTAIN ENGLISH <0.10 kU/L (Class 0)
[2018-05-14 11:54] LABS: E072-IGE MOUSE URINE <0.10 kU/L (Class 0)
[2018-05-14 15:45] VITALS: BP 137/76
--- NOTE | 2018-05-14 21:59 | PDOC DISCHARGE SUMMARY ---
General - Admit/Disc Date/PCP Admission Date/Primary Care Provider: 05/09/18 12:28 Discharge Date: 05/14/18 - Discharge Diagnosis (1) Allergic reaction caused by a drug Is this a current diagnosis for this admission?: Yes Summary: The patient had an allergic reaction after starting BuSpar. This medication has been discontinued. Unfortunately it took a long time for her symptoms to resolve despite intravenous Solu-Medrol, topical hydrocortisone and Benadryl. The patient is doing much better. Skin testing for allergies was negative as was blood work for autoimmune disease. The patient will follow up with her primary care physician. BuSpar is now on her allergy list. (2) Angioedema Is this a current diagnosis for this admission?: Yes Summary: As above. Her discharge regimen included methylprednisolone, topical hydrocortisone and Benadryl. (3) Depression Is this a current diagnosis for this admission?: Yes Summary: We will continue her citalopram as an outpatient. In addition I did give her a prescription for trazodone. This will help with sleep and should help her depression. (4) GERD (gastroesophageal reflux disease) Is this a current diagnosis for this admission?: Yes Summary: She was given a prescription for Protonix 40 mg daily. - Additional Information Resuscitation Status: Full Code Discharge Diet: Regular Discharge Activity: Activity As Tolerated Prescriptions: Citalopram Hydrobromide [Celexa 20 mg Tablet] 20 mg PO DAILY 30 Days #30 tablet Methylprednisolone [Medrol Dosepack (4 mg/Tab) 21 Tab/Dosepak] 4 mg PO ASDIR PRN #21 tab.ds.pk PRN Reason: Pantoprazole Sodium [Protonix] 40 mg PO DAILY #30 tablet. Propranolol HCl [Inderal 10 mg Tablet] 10 mg PO Q12 30 Days #60 tablet Trazodone HCl 50 mg PO HSP PRN 14 Days #14 tablet PRN Reason: Sleep Or Insomnia Home Medications: Citalopram Hydrobromide [Celexa 20 mg Tablet] 20 mg PO DAILY 30 Days #30 tablet 05/14/18 Hydrocortisone [Hydrocortisone 1% Cream 28.35 gm] 1 applic TP BID tube Methylprednisolone [Medrol Dosepack (4 mg/Tab) 21 Tab/Dosepak] 4 mg PO ASDIR PRN #21 tab.ds.pk 05/14/18 Pantoprazole Sodium [Protonix] 40 mg PO DAILY #30 tablet. 05/14/18 Propranolol HCl [Inderal 10 mg Tablet] 10 mg PO Q12 30 Days #60 tablet 05/14/18 Trazodone HCl 50 mg PO HSP PRN 14 Days #14 tablet 05/14/18 History of Present Illness Patient complains of: Allergic reaction History of Present Illness: NICOLA KITCHEN is a 42 year old female who presented on May 09, 2018. Her primary care physician is listed as Dr. Zapata. After starting BuSpar for anxiety and penicillin 2 weeks ago for a toothache, the patient developed swelling of the lips, face and arms. There was diffuse erythema. She reported tenderness. There was some swelling in her left hand the night before but it had flourished overnight. The patient will occasionally use ibuprofen and Benadryl. There were no new food items. Prior to this event she was just completing her course of penicillin. Hospital Course Hospital Course: The patient had an unremarkable but prolonged hospital course. Despite aggressive steroid therapy as well as H2 good and antihistamine therapy her symptoms were very slow to resolve. She still had significant tenderness to multiple areas of her skin. There is still some swelling especially on the right side of her face and her arms. There was fading erythema. The Benadryl was partly effective complementing the Pepcid and Solu-Medrol. I did add some topical hydrocortisone to the very itchy areas to help with symptom management. The patient is fairly comfortable today. The remaining symptoms are not severe. She will be discharged home and was instructed to follow-up with her primary care physician. Physical Exam Vital Signs: Temp Pulse Resp BP Pulse Ox 98.3 F 84 16 137/76 H 98 05/14/18 15:45 05/14/18 15:45 05/14/18 15:45 05/14/18 15:45 05/14/18 15:45 Intake & Output 05/13/18 05/14/18 05/15/18 06:59 06:59 06:59 Intake Total 489 1533 Output Total 0 Balance 489 1533 Weight 92.1 kg 95.4 kg General appearance: PRESENT: no acute distress, obese, well-developed Head exam: PRESENT: atraumatic, normocephalic Mouth exam: PRESENT: moist Neck exam: ABSENT: carotid bruit, JVD, lymphadenopathy Respiratory exam: PRESENT: clear to auscultation guerita, symmetrical, unlabored. ABSENT: crackles, prolonged expiratory phas, rales, rhonchi, stridor, wheezes Cardiovascular exam: PRESENT: RRR, +S1, +S2 GI/Abdominal exam: PRESENT: normal bowel sounds, soft. ABSENT: distended, tenderness Extremities exam: PRESENT: other - Still with slight puffiness especially the right arm. Neurological exam: PRESENT: alert, awake, oriented to person, oriented to place , oriented to time, oriented to situation, CN II-XII grossly intact Psychiatric exam: PRESENT: appropriate affect, normal mood. ABSENT: agitated, anxious Skin exam: PRESENT: dry, normal color, warm. ABSENT: erythema Results Laboratory Results: 05/12/18 04:57 05/12/18 04:57 05/09/18 05/09/18 05/10/18 15:00 21:00 03:00 CK-MB (CK-2) Troponin I < 0.012 < 0.012 < 0.012 05/10/18 03:00 CK-MB (CK-2) 0.75 Troponin I Qualifiers - * PATIENT BEING DISCHARGED WITH ANY OF THE FOLLOWING DIAGNOSIS: No Plan Discharge Plan: As outlined above. Time Spent: Greater than 30 Minutes
[2018-05-15 08:23] LABS: ANTICARDIOLIPIN IGA AB <9 APL U/mL (0-11); ANTICARDIOLIPIN IGG AB <9 GPL U/mL (0-14); ANTICARDIOLIPIN IGM AB <9 MPL U/mL (0-12)
== END 2018-05-14 15:51 | disposition home or self-care (01) | DRG 916 ==
LOC: ER 10:41 → OBSVTOIN 12:28 → EH 12:28 → ICU 14:37 → 5 05-10 11:52
PROVIDERS: ADMIT Internal Medicine; ATTEND Internal Medicine
PROC: 30233L1 Transfusion of Nonautologous Fresh Plasma into Peripheral Vein, Percutaneous Approach (ICD-10-PCS; 2018-05-11)
PROC: 0DB68ZX Excision of Stomach, Via Natural or Artificial Opening Endoscopic, Diagnostic (ICD-10-PCS; principal; 2018-05-13 11:00)
DX: T78.3XXA Angioneurotic edema, initial encounter (principal); T50.905A Adverse effect of unspecified drugs, medicaments and biological substances, initial encounter; Y92.9 Unspecified place or not applicable; F32.9 Major depressive disorder, single episode, unspecified; K21.9 Gastro-esophageal reflux disease without esophagitis; I10 Essential (primary) hypertension; Z60.2 Problems related to living alone; Z79.899 Other long term (current) drug therapy; Z90.49 Acquired absence of other specified parts of digestive tract; Z88.0 Allergy status to penicillin; Z88.8 Allergy status to other drugs, medicaments and biological substances; Z82.49 Family history of ischemic heart disease and other diseases of the circulatory system
CPT/HCPCS: 00731; 36415; 36430; 43239; 80048; 80053; 80307; 82553; 82785; 83735; 84439; 84443; 84484; 85025; 85610; 85652; 86003; 86038; 86147; 86160; 86161; 86215; 86430; 86592; 86701; 86704; 86705; 86706; 86707; 86803; 86900; 86901; 87210; 87340; 87350; 88305; 93005; 93010; 93306; 96372; 99291; J0171; J1200; J1650; J2250; J2704; J2920; J2930; J3490; J7120; J7512; P9017; S0028

== ENCOUNTER 2018-05-19 14:22 | Emergency (ER) | payer SELFPAY ==
[2018-05-19] MEDS ORDERED: MAG HYDROX/AL HYDROX/SIMETH SUSP 30 ML UDCUP PO ONE (14:37)
[2018-05-19] MEDS ORDERED: METOCLOPRAMIDE HCL ORAL SOLN 10 MG/10 ML UDCUP PO ONE (14:37)
[2018-05-19] MEDS ORDERED: LIDOCAINE 2% VISCOUS SOLN 20 ML UDCUP PO ONE (14:37)
--- NOTE | 2018-05-19 14:39 | ER Document Report ---
ED Medical Screen (RME) - General Chief Complaint: Chest Pain Stated Complaint: HEART PAIN Time Seen by Provider: 05/19/18 14:34 Notes: Patient is a 42-year-old female that presents to the emergency department for chief complaint of substernal chest pain and epigastric pain. Patient has been having the symptoms since Friday, she did have an upper endoscopy, and was prescribed pantoprazole, but her symptoms are persisting so she decided come to the emergency department. ROS: Other than noted above, the 12 point review of systems was reviewed with the patient and were negative, all pertinent findings are included in the HPI. PHYSICAL EXAMINATION: Vital signs reviewed. GENERAL: Well-appearing, well-nourished and appears anxious HEAD: Atraumatic, normocephalic. EYES: Pupils equal round extraocular movements intact, conjunctiva are normal. ENT: Nares patent NECK: Normal range of motion CV: Heart rate tachycardic, regular rhythm LUNGS: No respiratory distress Musculoskeletal: Normal range of motion NEUROLOGICAL: Normal speech PSYCH: Patient appears anxious MDM: Patient seen and examined for rapid initial assessment. Vital signs reviewed. A comprehensive ED assessment and evaluation of the patient, analysis of test results and completion of the medical decision making process will be conducted by additional ED providers. *Note is created using voice recognition software and may contain spelling, syntax or grammatical errors. TRAVEL OUTSIDE OF THE [place] IN LAST 30 DAYS: No - Related Data Allergies/Adverse Reactions: penicillin V Allergy (Severe, Verified 05/19/18 14:23) Anaphylaxis buspirone [From BuSpar] Adverse Reaction (Verified 05/19/18 14:23) Hives Past Medical History - Past Medical History Cardiac Medical History: Reports: Hx Hypertension Renal/ Medical History: Denies: Hx Peritoneal Dialysis GI Medical History: Reports: Hx Gastroesophageal Reflux Disease Musculoskeltal Medical History: Reports Hx Musculoskeletal Trauma - chronic back pain Psychiatric Medical History: Reports: Hx Depression Past Surgical History: Reports: Hx Cholecystectomy, Other - panniculectomy - Immunizations Immunizations up to date: No Hx Diphtheria, Pertussis, Tetanus Vaccination: No - UNKNOWN History of Influenza Vaccine for 03/2017 - 08/2017 Season: Refused Physical Exam - Vital signs Vitals: Temp Pulse Resp BP Pulse Ox 97.8 F 107 H 22 H 118/70 100 05/19/18 14:23 05/19/18 14:23 05/19/18 14:23 05/19/18 14:23 05/19/18 14:23 Course - Vital Signs Vital signs: Temp Pulse Resp BP Pulse Ox 97.8 F 107 H 22 H 118/70 100 05/19/18 14:23 05/19/18 14:23 05/19/18 14:23 05/19/18 14:23 05/19/18 14:23
[2018-05-19] MEDS ORDERED: MORPHINE SULFATE 10 MG/ML INJ IV ONE (14:52)
[2018-05-19] MEDS ORDERED: LIDOCAINE 5% (700 MG) TRANSDERMAL ADH..PATCH TP ONE (14:52)
--- NOTE | 2018-05-19 14:58 | ER Document Report ---
ED General - General Chief Complaint: Chest Pain Stated Complaint: HEART PAIN Time Seen by Provider: 05/19/18 14:34 TRAVEL OUTSIDE OF THE [place] IN LAST 30 DAYS: No - HPI Notes: Patient is a 42-year-old female with a history of hypertension, cholecystectomy , tummy tuck, and GERD who presents to the ED complaining of continued lower sternal/epigastric abdominal pain since her discharge from the hospital about 1.5 weeks ago. Patient was admitted originally for allergic reaction, but ended up having an endoscopy performed near the end of her visit which was unremarkable. Patient states that she has had the same pain since then. Patient states that food intake does make her pain worse. Patient states that she can reproduce her pain by pushing in her upper abdomen/lower chest. The pain does not radiate otherwise. She is still urinating normally and having normal bowel movements. Patient states that she has not been taking any medications orally. No significant cardiopulmonary medical history otherwise. Denies any prolonged immobilization, distance travel, recent surgery/trauma, personal cancer history, hormone use, smoking, or previous DVT/PE. Denies any headache, fever, neck pain, URI, sore throat, palpitations, syncope, cough, shortness of breath, wheeze, dyspnea, nausea/vomiting/diarrhea, urinary retention, dysuria, hematuria, back pain, loss of control of bowel or bladder, numbness/tingling, saddle anesthesia, muscle paralysis/weakness, or rash. - Related Data Allergies/Adverse Reactions: penicillin V Allergy (Severe, Verified 05/19/18 14:23) Anaphylaxis buspirone [From BuSpar] Adverse Reaction (Verified 05/19/18 14:23) Hives Past Medical History - Social History Smoking Status: Never Smoker Family History: Reviewed & Not Pertinent - Past Medical History Cardiac Medical History: Reports: Hx Hypertension Renal/ Medical History: Denies: Hx Peritoneal Dialysis GI Medical History: Reports: Hx Gastroesophageal Reflux Disease Musculoskeletal Medical History: Reports Hx Musculoskeletal Trauma - chronic back pain Psychiatric Medical History: Reports: Hx Depression Past Surgical History: Reports: Hx Cholecystectomy, Other - panniculectomy - Immunizations Immunizations up to date: No Hx Diphtheria, Pertussis, Tetanus Vaccination: No - UNKNOWN Review of Systems - Review of Systems -: Yes All other systems reviewed and negative Physical Exam - Vital signs Vitals: Temp Pulse Resp BP Pulse Ox 97.8 F 107 H 22 H 118/70 100 05/19/18 14:23 05/19/18 14:23 05/19/18 14:23 05/19/18 14:23 05/19/18 14:23 - Notes Notes: PHYSICAL EXAMINATION: GENERAL: Well-appearing, well-nourished and in no acute distress. HEAD: Atraumatic, normocephalic. EYES: Pupils equal round and reactive to light, extraocular movements intact, sclera anicteric, conjunctiva are normal. ENT: Nares patent and without discharge. oropharynx clear without exudates. No tonsilar hypertrophy or erythema. Moist mucous membranes. NECK: Normal range of motion, supple without lymphadenopathy Chest: + reproducible tenderness to inferior sternal area and reproducible with arm extension/abduction/trunk extension. LUNGS: Breath sounds clear to auscultation bilaterally and equal. No wheezes rales or rhonchi. HEART: Regular rate and rhythm without murmurs, rubs, gallops. ABDOMEN: Soft, nondistended abdomen. No guarding, no rebound. No masses appreciated. Normal bowel sounds present. No CVA tenderness bilaterally. + reproducible tenderness to the epigastrum. No RUQ tenderness. no lower abd tenderness including McBurney point. Musculoskeletal: FROM to passive/active. Strength 5+/5. Laura neg. No asymmetry to LE's. Extremities: No cyanosis, clubbing, or edema b/l. Peripheral pulses 2+. Capillary refill less than 3 seconds. NEUROLOGICAL: Normal speech, normal gait. PSYCH: Normal mood, normal affect. SKIN: Warm, Dry, normal turgor, no rashes or lesions noted. Course - Re-evaluation Re-evalutation: 05/19/18 16:08 Pt was writhing around in pain and crying in the bed which made her HR go up and c/o epigastric pain. Dr. Mcnally was consulted who eval'd the patient. Pt was then given 1mg dilaudid and CT ordered to further evaluate. 05/19/18 17:50 Patient is an afebrile, well-hydrated 42-year-old female who presents to the ED with epigastric, unspecified. Vitals are acceptable without any significant tachycardia, tachypnea, or hypoxia. PE is otherwise unremarkable aside from the reproducible epigastric and lower sternal tenderness that was also reproduced by extremity/truncal movement. Patient is nontoxic-appearing and is tolerating p.o. without any difficulties. Pt is currently doing much better. She was given a GI cocktail during her stay as well. CBC, CMP, EKG/cardiac enzyme, chest x-ray, and CT scan of the abd/pelv were all unremarkable for any acute pathology. Patient has a heart score of 2, Wells score of 0, and is PERC negative (pt was only tachy when she was crying in pain; at rest is not tachy- see EKG as well). Patient does not have any chest pain, dyspnea, or shortness of breath. I did review again with Dr. Mcnally who does not recommend another trop check at this time as her symptoms are primarily GI and reproducible w/o previous cardiopulmonary medical history. Patient's presentation and symptomatology creates low suspicion for ACS, PE, pneumothorax, pericarditis, dissection, respiratory compromise, severe dehydration, sepsis, meningitis, or other systemic emergent condition at this time. Patient is aware that this condition can change from initial presentation and she needs to monitor symptoms closely and seek medical attention for any acute changes. Rx for carafate, omeprazole, and zofran. Recommend conservative measures for symptoms. Recheck with your PCM in 2-3 days. Consider consult with GI. Return to the ED with any worsening/concerning symptoms otherwise as reviewed in discharge. Patient is in agreement. - Vital Signs Vital signs: Temp Pulse Resp BP Pulse Ox 97.8 F 107 H 16 142/93 H 96 05/19/18 14:23 05/19/18 14:23 05/19/18 17:00 05/19/18 16:03 05/19/18 17:00 - Laboratory Result Diagrams: 05/19/18 15:30 05/19/18 15:30 Discharge - Discharge Clinical Impression: Epigastric abdominal pain Condition: Stable Disposition: HOME, SELF-CARE Instructions: Abdominal Pain ([facility]), Antinausea Medication ([facility]) Additional Instructions: Maintain adequate fluid and food intake [place] diet ([employer] Bananas, rice, apples, toast, etc Zofran as needed tylenol if needed Monitor for any worsening symptoms Make sure you are staying hydrated enough to urinate and have normal BM's Recheck with your PCM in 2-3 days Schedule a consult with GI for further evaluation and management* Return to the ED with any worsening symptoms and/or development of fever, headache, chest pain, palpitations, syncope, shortness of breath, trouble breathing, abdominal pain, n/v/d, blood in stool/urine, weakness, or other worsening symptoms that are concerning to you. Prescriptions: Omeprazole 20 mg PO DAILY #30 tablet. Ondansetron [Zofran Odt 4 mg Tablet] 1 - 2 tab PO Q4H PRN #15 tab.rapdis PRN Reason: For Nausea/Vomiting Sucralfate [Carafate] 1 gm PO BID #100 ml Forms: Elevated Blood Pressure Referrals: [facility] [Provider Group] - Follow up as needed GEOVANNA JACKSON MD [ACTIVE STAFF] - Follow up in 3-5 days
--- NOTE | 2018-05-19 15:29 | RADIOLOGY REPORT (SQ) ---
EXAM DESCRIPTION: CHEST SINGLE VIEW COMPLETED DATE/TIME: 05/19/2018 2:55 pm REASON FOR STUDY: chest pain COMPARISON: 08/03/2012 EXAM PARAMETERS: NUMBER OF VIEWS: One view. TECHNIQUE: Single frontal radiographic view of the chest acquired. RADIATION DOSE: NA LIMITATIONS: None. FINDINGS: LUNGS AND PLEURA: No opacities, masses or pneumothorax. No pleural effusion. MEDIASTINUM AND HILAR STRUCTURES: No masses. Contour normal. HEART AND VASCULAR STRUCTURES: Heart normal in size. Normal vasculature. BONES: No acute findings. HARDWARE: None in the chest. OTHER: No other significant finding. IMPRESSION: NO ACUTE RADIOGRAPHIC FINDING IN THE CHEST. TECHNICAL DOCUMENTATION: JOB ID: [id number] [employer]- All Rights Reserved Reading location - IP/workstation name: [email or web address]
--- NOTE | 2018-05-19 15:48 | EKG REPORT ---
SEVERITY:- NORMAL ECG - SINUS RHYTHM : Confirmed by: Harper Li MD 19-May-2018 15:47:12
[2018-05-19] MEDS ORDERED: HYDROMORPHONE HCL INJ/PF 2 MG/ML AMPULE IV ONE (15:55)
[2018-05-19 15:59] LABS: ABSOLUTE BASOPHILS # (AUTO) 0.1 10^3/uL (0.0-0.2); ABSOLUTE EOSINOPHILS # (AUTO) 0.2 10^3/uL (0.0-0.6); ABSOLUTE LYMPHOCYTES (AUTO) 2.4 10^3/uL (0.5-4.7); ABSOLUTE MONOCYTES (AUTO) 0.5 10^3/uL (0.1-1.4); ABSOLUTE NEUT (AUTO) 6.9 10^3/uL (1.7-8.2); BASOPHILS % (AUTO) 0.5 % (0-2); HEMATOCRIT 39.2 % (36.0-47.0); HEMOGLOBIN 13.6 g/dL (12.0-15.5); LYMPHOCYTES % (AUTO) 24.2 % (13-45); MEAN CORPUSCULAR HEMOGLOBIN 28.2 pg (27.0-33.4); MEAN CORPUSCULAR HGB CONC 34.7 g/dL (32.0-36.0); MEAN CORPUSCULAR VOLUME 81 fl (80-97); MONOCYTES % (AUTO) 4.7 % (3-13); PLATELET COUNT 385 10^3/uL (150-450); RED BLOOD COUNT 4.82 10^6/uL (3.72-5.28); RED CELL DISTRIBUTION WIDTH 13.9 % (11.5-14.0); SEGMENTED NEUTROPHILS % (AUTO) 68.6 % (42-78); TOTAL CELLS COUNTED % (AUTO) 100 %; WHITE BLOOD COUNT 10.1 10^3/uL (4.0-10.5)
[2018-05-19 16:06] LABS: ALANINE AMINOTRANSFERASE 21 U/L (9-52); ALBUMIN 3.8 g/dL (3.5-5.0); ALKALINE PHOSPHATASE 87 U/L (38-126); ANION GAP 11 (5-19); ASPARTATE AMINO TRANSFERASE 27 U/L (14-36); BILIRUBIN,DIRECT 0.2 mg/dL (0.0-0.4); BILIRUBIN,TOTAL 0.4 mg/dL (0.2-1.3); BLOOD UREA NITROGEN 16 mg/dL (7-20); CALCIUM 9.6 mg/dL (8.4-10.2); CARBON DIOXIDE 28 mmol/L (22-30); CHLORIDE 99 mmol/L (98-107); GLUCOSE 98 mg/dL (75-110); LIPASE 220.3 U/L (23-300); POTASSIUM 4.3 mmol/L (3.6-5.0); SODIUM 138.2 mmol/L (137-145); TOTAL PROTEIN 7.4 g/dL (6.3-8.2)
--- NOTE | 2018-05-19 17:01 | RADIOLOGY REPORT (SQ) ---
EXAM DESCRIPTION: CT ABD/PELVIS WITH IV ONLY COMPLETED DATE/TIME: 05/19/2018 4:51 pm REASON FOR STUDY: mid/epigastric pain COMPARISON: 06/05/2017 TECHNIQUE: CT scan of the abdomen and pelvis performed using helical scanning technique with dynamic intravenous contrast injection. No oral contrast. Images reviewed with lung, soft tissue, and bone windows. Reconstructed coronal and sagittal MPR images reviewed. Delayed images for evaluation of the urinary system also acquired. All images stored on PACS. All CT scanners at this facility use dose modulation, iterative reconstruction, and/or weight based d osing when appropriate to reduce radiation dose to as low as reasonably achievable (ALARA). [facility]: Dose Right [facility]: CareDose [facility]: Dose Right [facility]: Teradose 4D [facility]: Kira Talent CONTRAST TYPE AND DOSE: contrast/concentration: Isovue 350.00 mg/ml; Total Contrast Delivered: 92.0 ml; Total Saline Delivered: 70.0 ml RENAL FUNCTION: GFR > 60. RADIATION DOSE: CT Rad equipment meets quality standard of care and radiation dose reduction techniq ues were employed. CTDIvol: 11.1 - 14.5 mGy. DLP: 1553 mGy-cm.. LIMITATIONS: None. FINDINGS: LOWER CHEST: No significant findings. No nodules or infiltrates. LIVER: Normal size. No masses. No dilated ducts. SPLEEN: Normal size. No focal lesions. PANCREAS: No masses. No significant calcifications. No adjacent inflammation or peripancreatic fluid collections. Pancreatic duct not dilated. GALLBLADDER: Surgically absent. ADRENAL GLANDS: No significant masses or asymmetry. RIGHT KIDNEY AND URETER: No solid masses. No significant calcifications. No hydronephrosis or hyd roureter. LEFT KIDNEY AND URETER: No solid masses. No significant calcifications. No hydronephrosis or hydr oureter. AORTA AND VESSELS: No aneurysm. No dissection. Renal arteries, SMA, celiac without stenosis. RETROPERITONEUM: No retroperitoneal adenopathy, hemorrhage or masses. BOWEL AND PERITONEAL CAVITY: There is large amount of stool throughout the colon consistent with cons tipation. No obstruction. No inflammatory changes. APPENDIX: Normal. PELVIS: No mass. No free fluid. Normal bladder. ABDOMINAL WALL: No masses. No hernias. BONES: No significant or acute findings. OTHER: No other significant finding. IMPRESSION: NO SIGNIFICANT OR ACUTE FINDING IN THE ABDOMEN OR PELVIS ON CT SCAN WITH IV CONTRAST. TECHNICAL DOCUMENTATION: JOB ID: [id number] Quality ID # [id number]: Final reports with documentation of one or more dose reduction techniques (e.g., Au tomated exposure control, adjustment of the mA and/or kV according to patient size, use of iterative reconstruction technique) 2010 [employer]- All Rights Reserved Reading location - IP/workstation name: [email or web address]
[2018-05-19 18:23] VITALS: BP 126/82
== END 2018-05-19 18:41 | disposition home or self-care (01) ==
LOC: ER 14:22
DX: R10.13 Epigastric pain (principal); R07.9 Chest pain, unspecified; I10 Essential (primary) hypertension; K21.9 Gastro-esophageal reflux disease without esophagitis; Z88.0 Allergy status to penicillin
CPT/HCPCS: 93005; 99285; 96374; 96375; 36415; 83690; 84703; 85025; 80053; 84484; 71045; 74177; 93010; J3490; J2270; J1170

== ENCOUNTER 2018-09-23 19:11 | Emergency (ER) | payer SELFPAY ==
--- NOTE | 2018-09-23 20:27 | ER Document Report ---
HPI - HPI Time Seen by Provider: 09/23/18 20:20 Pain Level: 2 Notes: Patient is a 42-year-old female who presents emergency department chief complaint of dental pain. Patient reports dental pain has been ongoing for several months, states that she took some antibiotics few months ago which relieved the pain however she states that she has been unable to see a dentist of the pain has returned. Patient also reports that she received some type of "antibiotic mouthwash" that helped her last time. Patient denies any fevers. - CONSTITUTIONAL Constitutional: REPORTS: Fever - REPRODUCTIVE Reproductive: DENIES: : Past Medical History - General Information source: Patient - Social History Smoking Status: Never Smoker Chew tobacco use (# tins/day): No Frequency of alcohol use: None Drug Abuse: None Family History: Reviewed & Not Pertinent Patient has suicidal ideation: No Patient has homicidal ideation: No - Past Medical History Cardiac Medical History: Reports: Hx Hypertension Renal/ Medical History: Denies: Hx Peritoneal Dialysis GI Medical History: Reports: Hx Gastroesophageal Reflux Disease Musculoskeletal Medical History: Reports Hx Musculoskeletal Trauma - chronic back pain Psychiatric Medical History: Reports: Hx Depression Past Surgical History: Reports: Hx Abdominal Surgery, Hx Cholecystectomy, Other - panniculectomy - Immunizations Immunizations up to date: No Hx Diphtheria, Pertussis, Tetanus Vaccination: No - UNKNOWN Vertical Provider Document - CONSTITUTIONAL Notes: PHYSICAL EXAMINATION: GENERAL: Well-appearing, well-nourished and in no acute distress. HEAD: Atraumatic, normocephalic. EYES: Pupils equal round extraocular movements intact, conjunctiva are normal. ENT: Nares patent, erythema noted around tooth numbers 2 and 3, no drainable abscess identified. Fracture noted to multiple teeth. NECK: Normal range of motion LUNGS: No respiratory distress Musculoskeletal: Normal range of motion NEUROLOGICAL: Normal speech, normal gait. PSYCH: Normal mood, normal affect. SKIN: Warm, Dry, normal turgor, no rashes or lesions noted. - INFECTION CONTROL TRAVEL OUTSIDE OF THE [place] IN LAST 30 DAYS: No Course - Re-evaluation Re-evalutation: Patient's examination consistent with dental infection. Patient will be started on clindamycin and will also be given a prescription for chlorhexidine rinse per her request. Patient encouraged to follow-up with dentist. - Vital Signs Vital signs: Temp Pulse Resp BP Pulse Ox 97.9 F 88 18 144/109 H 96 09/23/18 19:19 09/23/18 19:19 09/23/18 19:19 09/23/18 19:19 09/23/18 19:19 Discharge - Discharge Clinical Impression: Pain, dental Condition: Stable Disposition: HOME, SELF-CARE Additional Instructions: Please take medications as prescribed. Use the lidocaine directly onto the area of pain. Follow up with the dental clinic. [facility] [phone] Prescriptions: RX: Chlorhexidine Gluconate [Perisol Mouthwash] 1 applic MM BID #1 bottle RX: Clindamycin HCl 300 mg PO QID #40 capsule
[2018-09-23] MEDS ORDERED: LIDOCAINE 2% VISCOUS SOLN 20 ML UDCUP PO ONE (20:49)
[2018-09-23] MEDS ORDERED: CLINDAMYCIN HCL 150 MG CAPSULE PO ONE (20:50)
[2018-09-23 21:10] VITALS: BP 142/89
== END 2018-09-23 21:08 | disposition home or self-care (01) ==
LOC: ER 19:11
DX: K08.89 Other specified disorders of teeth and supporting structures (principal); L53.9 Erythematous condition, unspecified; R50.9 Fever, unspecified; I10 Essential (primary) hypertension
CPT/HCPCS: 99282; J3490

== ENCOUNTER 2019-03-16 20:52 | Emergency (ER) | payer SELFPAY ==
--- NOTE | 2019-03-16 22:55 | ER Document Report ---
ED Medical Screen (RME) - General Chief Complaint: Sore Throat Stated Complaint: SORE THROAT Time Seen by Provider: 03/16/19 22:54 Mode of Arrival: Ambulatory Information source: Patient Notes: Patient presents to the emergency department with complaints of sore throat when she talks for the past 2 weeks. Reports voice is hoarse. Reports she is used several [id number] medications without relief of symptoms. Denies fever vomiting diarrhea. Denies past medical history. Patient is talking in a clear whisper voice. Good airway no obvious signs of infection. I have greeted and performed a rapid initial assessment of this patient. A comprehensive ED assessment and evaluation of the patient, analysis of test results and completion of the medical decision making process will be conducted by additional ED providers. Dictation of this chart was performed using voice recognition software; therefore, there may be some unintended grammatical errors. TRAVEL OUTSIDE OF THE [place] IN LAST 30 DAYS: No - Related Data Allergies/Adverse Reactions: penicillin V Allergy (Severe, Verified 03/16/19 20:57) Anaphylaxis buspirone [From BuSpar] Adverse Reaction (Verified 03/16/19 20:57) Hives Past Medical History - Social History Chew tobacco use (# tins/day): No Frequency of alcohol use: None Drug Abuse: None - Past Medical History Cardiac Medical History: Reports: Hx Hypertension Renal/ Medical History: Denies: Hx Peritoneal Dialysis GI Medical History: Reports: Hx Gastroesophageal Reflux Disease Musculoskeltal Medical History: Reports Hx Musculoskeletal Trauma - chronic back pain Psychiatric Medical History: Reports: Hx Depression Past Surgical History: Reports: Hx Abdominal Surgery, Hx Cholecystectomy, Other - panniculectomy - Immunizations Immunizations up to date: No Hx Diphtheria, Pertussis, Tetanus Vaccination: No - UNKNOWN History of Influenza Vaccine for 03/2017 - 08/2017 Season: Refused Physical Exam - Vital signs Vitals: Temp Pulse Resp BP Pulse Ox 98.0 F 86 18 140/82 H 97 03/16/19 20:57 03/16/19 20:57 03/16/19 20:57 03/16/19 20:57 03/16/19 20:57 Course - Vital Signs Vital signs: Temp Pulse Resp BP Pulse Ox 98.0 F 86 18 140/82 H 97 03/16/19 20:57 03/16/19 20:57 03/16/19 20:57 03/16/19 20:57 03/16/19 20:57
[2019-03-16] MEDS ORDERED: KETOROLAC TROMETHAMINE INJ/PF 30 MG/1 ML SDV IM ONE (23:25)
[2019-03-16] MEDS ORDERED: DEXAMETHASONE SOD PHOS INJ 10 MG/1 ML VIAL IM ONE (23:25)
--- NOTE | 2019-03-17 00:20 | ER Document Report ---
ED ENT - General Chief Complaint: Sore Throat Stated Complaint: SORE THROAT Time Seen by Provider: 03/16/19 22:54 Mode of Arrival: Ambulatory Information source: Patient Notes: 43-year-old female presented to ED for complaint of sore throat for the last 2 weeks. She states she has had a hoarse voice for the same length of time. She states she is taken [id number]-htoeugh medicine with no relief. She denies any fever nausea vomiting or any other symptoms. She states she does have a cough that is worse in the morning and her talking is worse in the morning. She is alert oriented respirations regular and unlabored speaking in full sentences. When she is not thinking to whisper she does speak with a hoarse voice but not in a whisper. There is no enlargement of the tonsils there is no swelling there is a lot of postnasal drip. She does have a swollen cyst nasal passageway with purulent drainage. She also complains of a headache. TRAVEL OUTSIDE OF THE [place] IN LAST 30 DAYS: No - HPI Patient complains to provider of: Nose problem, Throat problem, Other - Cough and headache Onset: Other - 2 weeks Onset/Duration: Intermittent Quality of pain: Sharp Severity: Severe Pain Level: 5 Context: Recent Illness Location of pain: Nose, Sinus, Throat, Other - Headache and cough Associated symptoms: Congestion, Cough, Hoarse voice, Runny nose, Sinus drainage, Sore throat Similar symptoms previously: Yes Recently seen / treated by doctor: No - Related Data Allergies/Adverse Reactions: penicillin V Allergy (Severe, Verified 03/16/19 20:57) Anaphylaxis buspirone [From BuSpar] Adverse Reaction (Verified 03/16/19 20:57) Hives Past Medical History - General Information source: Patient - Social History Smoking Status: Unknown if Ever Smoked Chew tobacco use (# tins/day): No Frequency of alcohol use: None Drug Abuse: None Family History: Reviewed & Not Pertinent Patient has suicidal ideation: No Patient has homicidal ideation: No - Past Medical History Cardiac Medical History: Reports: Hx Hypertension Renal/ Medical History: Denies: Hx Peritoneal Dialysis GI Medical History: Reports: Hx Gastroesophageal Reflux Disease Musculoskeletal Medical History: Reports Hx Musculoskeletal Trauma - chronic back pain Psychiatric Medical History: Reports: Hx Depression Past Surgical History: Reports: Hx Abdominal Surgery, Hx Cholecystectomy, Other - panniculectomy - Immunizations Immunizations up to date: No Hx Diphtheria, Pertussis, Tetanus Vaccination: No - UNKNOWN Review of Systems - Review of Systems Constitutional: Recent illness EENT: Nose discharge, Sinus discharge, Throat pain, Other Cardiovascular: No symptoms reported Respiratory: Cough Gastrointestinal: No symptoms reported Genitourinary: No symptoms reported Female Genitourinary: No symptoms reported Musculoskeletal: No symptoms reported Skin: No symptoms reported Hematologic/Lymphatic: No symptoms reported Neurological/Psychological: No symptoms reported Physical Exam - Vital signs Vitals: Temp Pulse Resp BP Pulse Ox 98.0 F 86 18 140/82 H 97 03/16/19 20:57 03/16/19 20:57 03/16/19 20:57 03/16/19 20:57 03/16/19 20:57 Interpretation: Normal - General General appearance: Appears well, Alert - HEENT Head: Normocephalic, Atraumatic Eyes: Normal Pupils: PERRL Ears: Normal External canal: Normal Tympanic membrane: Normal Sinus: Normal Nasal: Purulent discharge, Swelling Mouth/Lips: Normal Pharynx: Erythema, Post nasal drainage. No: Blood in hypopharynx, Exudate, Peritonsillar abscess, Retropharyngeal abscess, Tonsillar hypertrophy, Uvular edema, Potential airway comprom. Neck: Normal - Respiratory Respiratory status: No respiratory distress Chest status: Nontender Breath sounds: Nonproductive cough Chest palpation: Normal - Cardiovascular Rhythm: Regular Heart sounds: Normal auscultation Murmur: No - Abdominal Inspection: Normal Distension: No distension Bowel sounds: Normal Tenderness: Nontender Organomegaly: No organomegaly - Back Back: Normal, Nontender - Extremities General upper extremity: Normal inspection, Nontender, Normal color, Normal ROM, Normal temperature General lower extremity: Normal inspection, Nontender, Normal color, Normal ROM, Normal temperature, Normal weight bearing. No: Laura's sign - Neurological Neuro grossly intact: Yes Cognition: Normal Orientation: AAOx4 Carson Coma Scale Eye Opening: Spontaneous Carson Coma Scale Verbal: Oriented Carson Coma Scale Motor: Obeys Commands Carson Coma Scale Total: 15 Speech: Normal Motor strength normal: LUE, RUE, LLE, RLE Sensory: Normal - Psychological Associated symptoms: Normal affect, Normal mood - Skin Skin Temperature: Warm Skin Moisture: Dry Skin Color: Normal Course - Re-evaluation Re-evalutation: 03/17/19 00:32 After performing a Medical Screening Examination, I estimate there is LOW risk for ACUTE CORONARY SYNDROME, RESPIRATORY FAILURE, SEPSIS OR MENINGITIS, thus I consider the discharge disposition reasonable. I have reevaluated this patient multiple times and no significant life threatening changes are noted. The patient and I have discussed the diagnosis and risks, and we agree with dischar ging home with close follow-up. We also discussed returning to the Emergency Department immediately if new or worsening symptoms occur. We have discussed the symptoms which are most concerning (e.g., changing or worsening pain, trouble swallowing or breathing, neck stiffness, fever) that necessitate immediate return. Patient also has a sore throat and hoarse voice she was treated with Toradol and Decadron and is feeling much better speaking clear sentences. - Vital Signs Vital signs: Temp Pulse Resp BP Pulse Ox 98.0 F 86 18 140/82 H 97 03/16/19 20:57 03/16/19 20:57 03/16/19 20:57 03/16/19 20:57 03/16/19 20:57 Discharge - Discharge Clinical Impression: Viral sore throat URI (upper respiratory infection) Qualifiers: URI type: unspecified viral URI Qualified Code(s): J06.9 - Acute upper respiratory infection, unspecified Condition: Stable Disposition: HOME, SELF-CARE Instructions: Family Physicians / Practices Additional Instructions: UPPER RESPIRATORY ILLNESS: You have a viral infection of the respiratory passages -- a "cold." This common infection causes nasal congestion, drainage, and often sore throat and cough. It is highly contagious. The disease usually lasts about 10 to 14 days. There is no "cure" for the viral infection -- it must run its course. If there is a complication, such as bacterial infection in the nose, sinuses, middle ear, or bronchial tubes, antibiotics may be required. The antibiotics won't affect the virus. Drink plenty of fluids. A humidifier may help. An expectorant medication or decongestant may make you more comfortable. Use acetaminophen or ibuprofen for fever or aches. See the doctor if fever persists over two days, if there is any significant worsening of your symptoms, or if you simply fail to improve as expected. SORE THROAT: Sore throats may be caused by viruses, bacteria, or fungi. Most are due to a virus, and must get better on their own. Bacterial sore throats, particularly those due to "strep," need treatment with antibiotics. If an antibiotic is prescribed, be sure to take the medication for a full 10 days. Failure to take the antibiotic can result in complications such as rheumatic fever. Sometimes, an injection of antibiotics is given instead of pills or liquid. This single "shot" is equal in effectiveness to the oral medication. To relieve symptoms, take acetaminophen for pain. Sip clear liquids frequently, or eat popsicles or ice chips. Anesthetic sprays or lozenges may help. Make sure the air in the room is not too dry. Avoid using decongestants or antihistamines. Call the doctor if there is no improvement in two days, or if you have difficulty breathing, increasing throat pain, high fever, rash, or frequent vomiting. Toradol Injection You have been given an injection of ketorolac tromethamine (Toradol). This is an excellent, safe drug for pain control. It also has potent antiinflammatory action. You should have significant pain relief within about one hour. Toradol is not addicting and is non-sedating. It does not interfere with driving or work. Call or return if you develop itching, hives, shortness of breath, or rash. STEROID MEDICATION: You have been given a medicine of the cortisone/steroid class. This medication is used to control inflammation or allergy. It is usually only given for a short period of time, until the acute process subsides. There are usually no side effects from short-term use of cortisone-like medications. Some persons feel an increased sense of well-being and are not sleepy at bedtime. Long-term use of cortisone medications is best avoided, unless required for a severe condition. If your condition does not remit, or relapses after the course of corticosteroid medication, you should consult your physician. FOLLOW-UP CARE: If you have been referred to a physician for follow-up care, call the physicians office for an appointment as you were instructed or within the next two days. If you experience worsening or a significant change in your symptoms, notify the physician immediately or return to the Emergency Department at any time for re-evaluation. Prescriptions: Nystatin/Dexameth/Diphen [Magic Mouthwash ([facility] Formula) Susp] 5 ml PO QID #120 ml Forms: Elevated Blood Pressure
[2019-03-17 00:57] VITALS: BP 126/92
== END 2019-03-17 00:57 | disposition home or self-care (01) ==
LOC: ER 20:52
DX: J02.8 Acute pharyngitis due to other specified organisms (principal); B97.89 Other viral agents as the cause of diseases classified elsewhere; R49.0 Dysphonia; R05 Cough; R09.82 Postnasal drip; J34.1 Cyst and mucocele of nose and nasal sinus; R51 Headache; R09.89 Other specified symptoms and signs involving the circulatory and respiratory systems; I10 Essential (primary) hypertension; Z87.892 Personal history of anaphylaxis; Z88.0 Allergy status to penicillin
CPT/HCPCS: 87070; 87880; J1885; J1100; 96372; 99283

== ENCOUNTER 2019-08-06 17:41 | Emergency (ER) | payer SELFPAY ==
[2019-08-06] MEDS ORDERED: IBUPROFEN 800 MG TABLET PO ONE (17:47)
[2019-08-06] MEDS ORDERED: NORMAL SALINE 1000 ML 1,000 ML IV ONE (17:48)
--- NOTE | 2019-08-06 17:51 | ER Document Report ---
ED Medical Screen (RME) - General Chief Complaint: Pain All Over Stated Complaint: BODY PAIN,COUGH Time Seen by Provider: 08/06/19 17:43 TRAVEL OUTSIDE OF THE [place] IN LAST 30 DAYS: No - HPI Notes: 08/06/19 17:48 Patient is a 43-year-old female with no significant past medical history presents complaining of "body pain," dry cough, chest pain with and without the cough, diarrhea, general weakness. Patient states that the coughing has been for the past month, but the other symptoms started within the last couple days. She has felt feverish as well. Patient states that she returned from [place] 2 days ago. No known insect bite. No history of CAD, DM, DVT, PE. I have treated and performed a rapid initial assessment of this patient. A comprehensive ED assessment and evaluation of the patient, analysis of test results and completion of medical decision making process will be conducted by additional ED providers. PHYSICAL EXAMINATION: GENERAL: Well-appearing, well-nourished and in no acute distress. A&Ox4. Answers questions appropriately. Lungs: Grossly CTAB. No retractions Heart: RRR Legs: Laura negative bilaterally. No edema. - Related Data Allergies/Adverse Reactions: penicillin V Allergy (Severe, Verified 03/16/19 20:57) Anaphylaxis buspirone [From BuSpar] Adverse Reaction (Verified 03/16/19 20:57) Hives Past Medical History - Past Medical History Cardiac Medical History: Reports: Hx Hypertension Renal/ Medical History: Denies: Hx Peritoneal Dialysis GI Medical History: Reports: Hx Gastroesophageal Reflux Disease Musculoskeltal Medical History: Reports Hx Musculoskeletal Trauma - chronic back pain Psychiatric Medical History: Reports: Hx Depression Past Surgical History: Reports: Hx Abdominal Surgery, Hx Cholecystectomy, Other - panniculectomy - Immunizations Immunizations up to date: No Hx Diphtheria, Pertussis, Tetanus Vaccination: No - UNKNOWN
[2019-08-06 18:28] LABS: ABSOLUTE EOSINOPHILS # (AUTO) 0.2 10^3/uL (0.0-0.6); ABSOLUTE LYMPHOCYTES (AUTO) 0.5 10^3/uL (0.5-4.7); ABSOLUTE MONOCYTES (AUTO) 0.5 10^3/uL (0.1-1.4); ABSOLUTE NEUT (AUTO) 6.7 10^3/uL (1.7-8.2); BASOPHILS % (AUTO) 0.3 % (0-2); EOSINOPHILS % (AUTO) 2.2 % (0-6); HEMOGLOBIN 12.9 g/dL (12.0-15.5); LYMPHOCYTES % (AUTO) 6.4 % (13-45); MEAN CORPUSCULAR HEMOGLOBIN 27.3 pg (27.0-33.4); MEAN CORPUSCULAR HGB CONC 33.9 g/dL (32.0-36.0); MEAN CORPUSCULAR VOLUME 81 fl (80-97); PLATELET COUNT 309 10^3/uL (150-450); RED BLOOD COUNT 4.71 10^6/uL (3.72-5.28); RED CELL DISTRIBUTION WIDTH 13.5 % (11.5-14.0); SEGMENTED NEUTROPHILS % (AUTO) 85.1 % (42-78); TOTAL CELLS COUNTED % (AUTO) 100 %; WHITE BLOOD COUNT 7.9 10^3/uL (4.0-10.5)
[2019-08-06 18:37] LABS: A TYPE INFLUENZA AG NEGATIVE (NEGATIVE); B INFLUENZA AG NEGATIVE (NEGATIVE)
--- NOTE | 2019-08-06 18:47 | RADIOLOGY REPORT (SQ) ---
EXAM DESCRIPTION: CHEST 2 VIEWS COMPLETED DATE/TIME: 08/06/2019 6:31 pm REASON FOR STUDY: cough/CP COMPARISON: 05/19/2018 EXAM PARAMETERS: NUMBER OF VIEWS: two views TECHNIQUE: Digital Frontal and Lateral radiographic views of the chest acquired. RADIATION DOSE: NA LIMITATIONS: none FINDINGS: LUNGS AND PLEURA: No opacities, masses or pneumothorax. No pleural effusion. MEDIASTINUM AND HILAR STRUCTURES: No masses or contour abnormalities. HEART AND VASCULAR STRUCTURES: Heart normal size. No evidence for failure. BONES: No acute findings. HARDWARE: None in the chest. OTHER: No other significant finding. IMPRESSION: NO ACUTE RADIOGRAPHIC FINDING IN THE CHEST. TECHNICAL DOCUMENTATION: JOB ID: [id number] [employer]- All Rights Reserved Reading location - IP/workstation name: [email or web address]
[2019-08-06 18:49] LABS: ALBUMIN 3.9 g/dL (3.5-5.0); ALKALINE PHOSPHATASE 81 U/L (38-126); ANION GAP 7 (5-19); ASPARTATE AMINO TRANSFERASE 16 U/L (14-36); BILIRUBIN,TOTAL 0.2 mg/dL (0.2-1.3); BLOOD UREA NITROGEN 7 mg/dL (7-20); CALCIUM 9.5 mg/dL (8.4-10.2); CARBON DIOXIDE 25 mmol/L (22-30); CHLORIDE 104 mmol/L (98-107); GLUCOSE 89 mg/dL (75-110); POTASSIUM 3.9 mmol/L (3.6-5.0); TOTAL PROTEIN 7.1 g/dL (6.3-8.2)
[2019-08-06] MEDS ORDERED: IBUPROFEN 600 MG TABLET ONE (19:52)
[2019-08-06] MEDS ORDERED: IBUPROFEN 800 MG TABLET ONE (19:54)
--- NOTE | 2019-08-06 20:36 | ER Document Report ---
ED General - General Chief Complaint: Chest Pain Stated Complaint: BODY PAIN,COUGH Time Seen by Provider: 08/06/19 17:43 Information source: Patient Notes: HPI: Patient is a 43-year-old female with no real past medical history who presents today with the onset 3 weeks ago of a very mild nonproductive cough. Over the last 2 days she has developed nonbloody diarrhea and a worsening cough with body aches "all over my body" and chills. She has had no vomiting. She denies any headache. She denies absolutely any abdominal pain. She states some mild chest discomfort with coughing. She denies any calf pain, or leg swelling. Patient has been in [place] for the last 3 months. She just flew home on a plane 2 days ago. This is when the symptoms started. Patient denies any blood in the diarrhea. ROS: See HPI All other review of systems reviewed and otherwise negative Reviewed vital signs and nursing note as charted by RN. PHYSICAL EXAM: CONSTITUTIONAL: Alert and oriented and responds appropriately to questions. Well-appearing; well-nourished HEAD: Normocephalic; atraumatic EYES: Sclerae non-icteric ENT: Normal nose; minimal bilateral nonpurulent nasal rhinorrhea; moist mucous membranes; pharynx without lesions noted NECK: Supple without meningismus; non-tender; no cervical lymphadenopathy, no masses CARD: Regular rate and rhythm; no murmurs; symmetric distal pulses RESP: Normal chest excursion without splinting or tachypnea; breath sounds clear and equal bilaterally; no wheezes, no rhonchi, no rales ABD/GI: Normal bowel sounds; non-distended; soft, non-tender to deep palpation of all 4 quadrants of the abdomen BACK: The back appears normal and is non-tender to palpation EXT: Normal ROM in all joints; non-tender to palpation; no edema SKIN: No acute lesions noted NEURO: CN 2-12 intact; 5/5 bilateral upper and lower extremity strength with sensation intact to light touch PSYCH: The patient's mood and manner are appropriate. Grooming and personal hygiene are appropriate. TRAVEL OUTSIDE OF THE [place] IN LAST 30 DAYS: No COUNTRY TRAVELED TO/FROM: [place] - Related Data Allergies/Adverse Reactions: penicillin V Allergy (Severe, Verified 03/16/19 20:57) Anaphylaxis buspirone [From BuSpar] Adverse Reaction (Verified 03/16/19 20:57) Hives Past Medical History - Social History Smoking Status: Unknown if Ever Smoked Family History: Reviewed & Not Pertinent Patient has suicidal ideation: No Patient has homicidal ideation: No - Past Medical History Cardiac Medical History: Reports: Hx Hypertension Renal/ Medical History: Denies: Hx Peritoneal Dialysis GI Medical History: Reports: Hx Gastroesophageal Reflux Disease Musculoskeletal Medical History: Reports Hx Musculoskeletal Trauma - chronic back pain Psychiatric Medical History: Reports: Hx Depression Past Surgical History: Reports: Hx Abdominal Surgery, Hx Cholecystectomy, Other - panniculectomy - Immunizations Immunizations up to date: No Hx Diphtheria, Pertussis, Tetanus Vaccination: No - UNKNOWN Physical Exam - Vital signs Vitals: Temp Pulse Resp BP Pulse Ox 99.2 F 94 16 139/85 H 98 08/06/19 17:51 08/06/19 17:51 08/06/19 17:51 08/06/19 17:51 08/06/19 17:51 Course - Re-evaluation Re-evalutation: Given the history and physical examination with the constellation of a worsening cough, diarrhea, and body aches with low-grade fever, after traveling, I do believe an upper respiratory tract like infection is the most likely. I will obtain an x-ray of the chest to evaluate for the possibility of a pneumonia. I will send an influenza test even though the sensitivity of the testing at this facility is around 50%. Patient does appear very nontoxic. She has had some diarrhea for the last 2 days as well. She denies any all abdominal pain and has no dysuria and denies any blood in the diarrhea. Patient denies any headache, has no neck stiffness or rash. I do believe acute bacterial meningitis to be unlikely. Patient has recently traveled from [place], but given the constellation of symptoms, with no calf pain, tachycardia, or hypoxia, I do believe pulmonary embolism to be unlikely. 08/06/19 20:33 Labs as recorded. Vital signs are stable. The patient is not tachycardic nor hypoxic. X-ray shows no obvious pneumonia. Still no tenderness to the abdomen. Influenza is negative. Given the above history and physical with the work-up as discussed above, I do n ot believe any further imaging or laboratory work is necessary at this time. I do believe that this is most likely viral in nature given the constellation of symptoms. I have given instructions regarding ibuprofen with strict return precautions. EKG shows normal sinus rhythm with a heart rate of 96. No ST elevation or depression. - Vital Signs Vital signs: Temp Pulse Resp BP Pulse Ox 99.2 F 94 16 139/85 H 98 08/06/19 17:51 08/06/19 17:51 08/06/19 17:51 08/06/19 17:51 08/06/19 17:51 - Laboratory Result Diagrams: 08/06/19 18:10 08/06/19 18:10 Laboratory results interpreted by me: 08/06/19 08/06/19 18:10 18:10 Lymph % (Auto) 6.4 L Seg Neutrophils % 85.1 H Sodium 136.4 L Discharge - Discharge Clinical Impression: Cough, Generalized body aches Diarrhea Qualifiers: Diarrhea type: unspecified type Qualified Code(s): R19.7 - Diarrhea, unspecified Condition: Good Disposition: HOME, SELF-CARE Additional Instructions: Come back immediately with any worsening cough, difficulty breathing or swallowing, worsening diarrhea, blood in the diarrhea, abdominal pain, rash or headache, change in mental status, or any other acute problems. Please take ibuprofen 600 mg every 6 hours as needed for pain and body aches. Please follow-up with your primary care physician.
[2019-08-06 21:08] VITALS: BP 124/73
--- NOTE | 2019-08-06 22:02 | EKG REPORT ---
SEVERITY:- NORMAL ECG - SINUS RHYTHM : Confirmed by: Harper Li MD 06-Aug-2019 22:01:07
== END 2019-08-06 21:07 | disposition home or self-care (01) ==
LOC: ER 17:41
DX: R05 Cough (principal); R19.7 Diarrhea, unspecified; M79.10 Myalgia, unspecified site; R07.9 Chest pain, unspecified; R53.1 Weakness; I10 Essential (primary) hypertension; Z88.0 Allergy status to penicillin
CPT/HCPCS: 93005; 36415; 85025; 80053; 84484; 87804; 71046; 93010; J7030; 96360; 99285

== ENCOUNTER 2019-08-07 21:39 | Emergency (ER) | payer SELFPAY ==
--- NOTE | 2019-08-07 22:34 | ER Document Report ---
ED Medical Screen (RME) - General Chief Complaint: Cold Symptoms Stated Complaint: COUGH Time Seen by Provider: 08/07/19 22:27 Mode of Arrival: Ambulatory Information source: Patient Notes: 43-year-old female presents to the emergency department again with complaints of worsening cough. Reports she is coughing up blood now. Reports her whole body is hurting from coughing so hard. Reports she has been coughing for the past 3 weeks. She reports she coughed so hard sometimes she has diarrhea and sometimes she is incontinent of urine. She reports she was seen yesterday and all they told her was to take Motrin. She reports she is a taking so much Motrin and nothing is working. No cough noted during entire interview. Respiratory rate even unlabored. Patient was recently in [place]. She reports everybody is focusing on that because she flew on a plane. Labs yesterday were negative chest x-ray negative. Patient reports symptoms worse. I have greeted and performed a rapid initial assessment of this patient. A comprehensive ED assessment and evaluation of the patient, analysis of test results and completion of the medical decision making process will be conducted by additional ED providers. TRAVEL OUTSIDE OF THE [place] IN LAST 30 DAYS: No COUNTRY TRAVELED TO/FROM: [place] - Related Data Allergies/Adverse Reactions: penicillin V Allergy (Severe, Verified 03/16/19 20:57) Anaphylaxis buspirone [From BuSpar] Adverse Reaction (Verified 03/16/19 20:57) Hives Past Medical History - Past Medical History Cardiac Medical History: Reports: Hx Hypertension Renal/ Medical History: Denies: Hx Peritoneal Dialysis GI Medical History: Reports: Hx Gastroesophageal Reflux Disease Musculoskeltal Medical History: Reports Hx Musculoskeletal Trauma - chronic back pain Psychiatric Medical History: Reports: Hx Depression Past Surgical History: Reports: Hx Abdominal Surgery, Hx Cholecystectomy, Other - panniculectomy - Immunizations Immunizations up to date: No Hx Diphtheria, Pertussis, Tetanus Vaccination: No - UNKNOWN Physical Exam - Vital signs Vitals: Temp Pulse Resp BP Pulse Ox 98.7 F 82 16 125/109 H 100 08/07/19 22:20 08/07/19 22:20 08/07/19 22:20 08/07/19 22:20 08/07/19 22:20 Course - Vital Signs Vital signs: Temp Pulse Resp BP Pulse Ox 98.7 F 82 16 125/109 H 100 08/07/19 22:20 08/07/19 22:20 08/07/19 22:20 08/07/19 22:20 08/07/19 22:20
[2019-08-07 23:07] LABS: APPEARANCE,URINE CLEAR; BILIRUBIN,URINE NEGATIVE (NEGATIVE); COLOR,URINE YELLOW; GLUCOSE, URINE NEGATIVE (NEGATIVE); KETONES,URINE NEGATIVE (NEGATIVE); LEUKOCYTE ESTERASE,URINE NEGATIVE (NEGATIVE); NITRITE,URINE NEGATIVE (NEGATIVE); PROTEIN,URINE 30 mg/dL (NEGATIVE); URINE SPECIFIC GRAVITY 1.017
[2019-08-07 23:28] LABS: ABSOLUTE EOSINOPHILS # (AUTO) 0.2 10^3/uL (0.0-0.6); ABSOLUTE LYMPHOCYTES (AUTO) 0.5 10^3/uL (0.5-4.7); ABSOLUTE MONOCYTES (AUTO) 0.4 10^3/uL (0.1-1.4); ABSOLUTE NEUT (AUTO) 4.9 10^3/uL (1.7-8.2); BASOPHILS % (AUTO) 0.5 % (0-2); HEMATOCRIT 37.1 % (36.0-47.0); HEMOGLOBIN 12.5 g/dL (12.0-15.5); LYMPHOCYTES % (AUTO) 8.8 % (13-45); MEAN CORPUSCULAR HEMOGLOBIN 27.3 pg (27.0-33.4); MEAN CORPUSCULAR HGB CONC 33.6 g/dL (32.0-36.0); MEAN CORPUSCULAR VOLUME 81 fl (80-97); MONOCYTES % (AUTO) 7.2 % (3-13); PLATELET COUNT 231 10^3/uL (150-450); RED BLOOD COUNT 4.57 10^6/uL (3.72-5.28); RED CELL DISTRIBUTION WIDTH 13.2 % (11.5-14.0); SEGMENTED NEUTROPHILS % (AUTO) 79.5 % (42-78); TOTAL CELLS COUNTED % (AUTO) 100 %; WHITE BLOOD COUNT 6.2 10^3/uL (4.0-10.5)
--- NOTE | 2019-08-07 23:31 | RADIOLOGY REPORT (SQ) ---
EXAM DESCRIPTION: XR CHEST 2 VIEWS COMPLETED DATE/TME: 08/07/2019 22:31 CLINICAL HISTORY: 43 years, Female, worsening cough COMPARISON: 08/06/2019 chest x-ray NUMBER OF VIEWS: 2 TECHNIQUE: 2 view chest LIMITATIONS: None. FINDINGS: The heart size is normal. Mild elevation of the right hemidiaphragm. Lungs are clear. No pneumothorax IMPRESSION: No acute cardiopulmonary process copyright 2010 [email or web address]- All Rights Reserved
[2019-08-07 23:47] LABS: ALBUMIN 3.7 g/dL (3.5-5.0); ALKALINE PHOSPHATASE 89 U/L (38-126); ANION GAP 8 (5-19); ASPARTATE AMINO TRANSFERASE 25 U/L (14-36); BILIRUBIN,DIRECT 0.2 mg/dL (0.0-0.4); BILIRUBIN,TOTAL 0.3 mg/dL (0.2-1.3); BLOOD UREA NITROGEN 9 mg/dL (7-20); CALCIUM 9.4 mg/dL (8.4-10.2); CARBON DIOXIDE 24 mmol/L (22-30); CHLORIDE 106 mmol/L (98-107); GLUCOSE 87 mg/dL (75-110); POTASSIUM 3.8 mmol/L (3.6-5.0); TOTAL PROTEIN 7.2 g/dL (6.3-8.2)
--- NOTE | 2019-08-08 00:51 | ER Document Report ---
HPI - HPI Time Seen by Provider: 08/07/19 22:27 Pain Level: Denies Notes: Patient is a 43-year-old female no significant past medical history who presents complaining of a cough for the past 3 weeks that is primarily dry with mild production. Patient states that the cough is gotten worse over the past couple days. She was in [place] for the past few months and flew back a couple days ago. She has had some loose stool as well started that is nonbloody. She has had some body aches associated. She is otherwise able to eat and drink without difficulty. She is urinating normally. Patient does note one episode of scant blood with her cough first thing this morning, but nothing since. No h/o DVT/PE, hormones, recent surgery, smoking. Denies any headache, fever, neck pain, sore throat, chest pain, palpitations, syncope, shortness of breath, wheeze, dyspnea, abdominal pain, nausea/vomiting/diarrhea, urinary retention, dysuria, hematuria, or rash. - ROS Systems Reviewed and Negative: Yes All other systems reviewed and negative - CONSTITUTIONAL Constitutional: DENIES: Fever, Chills - EENT EENT: DENIES: Sore Throat, Ear Pain, Eye problems - NEURO Neurology: DENIES: Headache, Weakness, Vision blurred, Dizzinesss / Vertigo - CARDIOVASCULAR Cardiovascular: REPORTS: Chest pain - RESPIRATORY Respiratory: REPORTS: Coughing. DENIES: Trouble Breathing - GASTROINTESTINAL Gastrointestinal: DENIES: Abdominal Pain, Black / Bloody Stools - URINARY Urinary: DENIES: Dysuria, Urgency, Frequency - REPRODUCTIVE Reproductive: DENIES: : - MUSCULOSKELETAL Musculoskeletal: DENIES: Extremity pain Past Medical History - General Information source: Patient - Social History Smoking Status: Never Smoker Chew tobacco use (# tins/day): No Frequency of alcohol use: None Drug Abuse: None Family History: Reviewed & Not Pertinent Patient has suicidal ideation: No Patient has homicidal ideation: No - Past Medical History Cardiac Medical History: Reports: Hx Hypertension Renal/ Medical History: Denies: Hx Peritoneal Dialysis GI Medical History: Reports: Hx Gastroesophageal Reflux Disease Musculoskeletal Medical History: Reports Hx Musculoskeletal Trauma - chronic back pain Psychiatric Medical History: Reports: Hx Depression Past Surgical History: Reports: Hx Abdominal Surgery, Hx Cholecystectomy, Other - panniculectomy - Immunizations Immunizations up to date: No Hx Diphtheria, Pertussis, Tetanus Vaccination: No - UNKNOWN Vertical Provider Document - CONSTITUTIONAL Agree With Documented VS: Yes Notes: PHYSICAL EXAMINATION: GENERAL: Well-appearing, well-nourished and in no acute distress. HEAD: Atraumatic, normocephalic. EYES: Pupils equal round and reactive to light, extraocular movements intact, sclera anicteric, conjunctiva are normal. ENT: Nares patent and without discharge. oropharynx clear without exudates. No tonsilar hypertrophy or erythema. Moist mucous membranes. NECK: Normal range of motion, supple without lymphadenopathy LUNGS: Breath sounds clear to auscultation bilaterally and equal. No wheezes rales or rhonchi. HEART: Regular rate and rhythm without murmurs, rubs, gallops. ABDOMEN: Soft, nontender, nondistended abdomen. No guarding, no rebound. Normal bowel sounds present. No CVA tenderness bilaterally. Musculoskeletal: FROM to passive/active. Strength 5+/5. Laura neg. No asymmetry to LE's. Extremities: No cyanosis, clubbing, or edema b/l. Peripheral pulses 2+. Capillary refill less than 3 seconds. Laura negative bilaterally. NEUROLOGICAL: Normal speech, normal gait. PSYCH: Normal mood, normal affect. SKIN: Warm, Dry, normal turgor, no rashes or lesions noted. - INFECTION CONTROL TRAVEL OUTSIDE OF THE [place] IN LAST 30 DAYS: Yes COUNTRY TRAVELED TO/FROM: [facility] Course - Re-evaluation Re-evalutation: 08/08/19 03:05 Patient is an afebrile, well-hydrated, 43-year-old female who presents to the emergency department with an acute URI, suspect viral. Vitals are acceptable without significant tachycardia, tachypnea, or hypoxia. PE is otherwise unremarkable. She is nontoxic-appearing and is tolerating p.o. without difficulty. Lungs are clear to auscultation bilaterally. Labs and CXR unremarkable. Dimer + and CTA negative. No further labs or imaging warranted at this time. Low suspicion for any meningitis, sepsis, peritonsillar/pharyngeal abscess, respiratory compromise, pneumonia, or other emergent systemic condition at this time. Patient is aware this condition can change from initial presentation and she needs to monitor symptoms closely. Rx for pocket zithromax to use with ongoing/worsening symptoms. Pt to receive tessalon as well. Conservative measures otherwise for symptoms. Recheck with your PCM in 2-3 days. Return to the ED with any worsening/concerning symptoms otherwise as reviewed in discharge. Patient is in agreement. - Vital Signs Vital signs: Temp Pulse Resp BP Pulse Ox 98.7 F 82 16 125/109 H 100 08/07/19 22:20 08/07/19 22:20 08/07/19 22:20 08/07/19 22:20 08/07/19 22:20 - Laboratory Result Diagrams: 08/07/19 23:22 08/07/19 23:22 Laboratory results interpreted by me: 08/07/19 08/07/19 08/07/19 22:48 23:22 23:22 Lymph % (Auto) 8.8 L Seg Neutrophils % 79.5 H Creatinine 0.47 L Urine Protein 30 H Urine Urobilinogen 2.0 H Discharge - Discharge Clinical Impression: Acute URI, Cough Condition: Stable Disposition: HOME, SELF-CARE Instructions: Upper Respiratory Illness ([facility]) Additional Instructions: Maintain adequate fluid intake tylenol/ibuprofen as needed alternating every 3 hours for fever/body ache over the counter cold medication as needed for symptoms Humidified air may help Wash your hands regularly Wear a mask when coughing F/u: with your PCM in 3-5 days for a recheck Return to the ED with any fever, altered mental status/behavior, chest pain, palpitations, syncope, headache, neck pain/stiffness, shortness of breath, chest pains, wheezing, drooling, trouble swallowing/breathing, abdominal pain, n/v/d, rash, or worsening/concerning symptoms otherwise. Prescriptions: Benzonatate [Tessalon Perles 100 mg Capsule] 100 mg PO Q8HP PRN #15 capsule PRN Reason: Azithromycin [Zithromax 250 mg Tablet] 250 mg PO ASDIR PRN #6 tablet PRN Reason: Forms: Elevated Blood Pressure Referrals: [facility] [Provider Group] - Follow up as needed
[2019-08-08] MEDS ORDERED: BENZONATATE 100 MG CAPSULE PO ONE (01:21)
--- NOTE | 2019-08-08 02:55 | RADIOLOGY REPORT (SQ) ---
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 TECHNIQUE: Postcontrast CT through the chest was performed per protocol for CT angiography. 3D Multiplanar reformations were performed at the workstation. Reconstructed sagittal and coronal images were also obtained through the chest. This exam was performed according to our departmental dose-optimization program, which includes automated exposure control, adjustment of the mA and/or KV according to the patient's size and/or use of iterative reconstruction technique. COMPARISON: None available FINDINGS: The heart size is within normal limits of size. No significant mediastinal, supraclavicular, or axillary lymphadenopathy is seen. The thoracic aorta is within normal limits of size. No filling defects are seen within the pulmonary arteries to suggest a pulmonary artery embolism. The thyroid gland is unremarkable. The central tracheobronchial tree is patent. There is no evidence of a focal consolidative airspace opacity. There is no evidence of pleural effusions or a pneumothorax. The bones demonstrate no suspicious lytic or blastic lesion. The visualized portions of the upper abdomen appear grossly unremarkable. The gallbladder is surgically absent. IMPRESSION: No acute airspace opacities are seen. No filling defect is seen to suggest a pulmonary artery embolism.
[2019-08-08 03:16] VITALS: BP 147/92
== END 2019-08-08 03:15 | disposition home or self-care (01) ==
LOC: ER 21:39
DX: J06.9 Acute upper respiratory infection, unspecified (principal); R05 Cough; M79.10 Myalgia, unspecified site; R07.9 Chest pain, unspecified; I10 Essential (primary) hypertension
CPT/HCPCS: 36415; 71046; 71275; 80053; 81001; 81025; 85025; 85379; 99284

== ENCOUNTER 2019-08-23 11:52 | Emergency (ER) | payer SELFPAY ==
[2019-08-23] MEDS ORDERED: METOCLOPRAMIDE HCL INJ/PF 10 MG/2 ML SDV IV ONE ×2 (12:49→17:30)
[2019-08-23] MEDS ORDERED: DIPHENHYDRAMINE HCL 50 MG/ML VIAL IV ONE ×2 (12:49→17:30)
[2019-08-23] MEDS ORDERED: NORMAL SALINE 1000 ML 1,000 ML IV ONE ×2 (12:49→17:30)
--- NOTE | 2019-08-23 12:51 | ER Document Report ---
ED Medical Screen (RME) - General Chief Complaint: Headache Stated Complaint: HEADACHE Time Seen by Provider: 08/23/19 12:45 Notes: Patient is a 43-year-old female who presents to the emergency department with a chief complaint of a headache. Patient states that she has had her headache for the past 10 days. She attempted to take [id number] medications to help with her headache, but nothing is helping with her headache. States the pain is around her eyes and sometimes in the back of her head. Denies any thunderclap headache symptoms. Denies any vomiting. Exam: Awake, alert and oriented. Patient able to move all extremities with no difficulty. I have greeted and performed a rapid initial assessment of this patient. A comprehensive ED assessment and evaluation of the patient, analysis of test results and completion of medical decision making process will be conducted by an additional ED providers. TRAVEL OUTSIDE OF THE [place] IN LAST 30 DAYS: No COUNTRY TRAVELED TO/FROM: [facility] - Related Data Allergies/Adverse Reactions: penicillin V Allergy (Severe, Verified 03/16/19 20:57) Anaphylaxis buspirone [From BuSpar] Adverse Reaction (Verified 03/16/19 20:57) Hives Past Medical History - Social History Frequency of alcohol use: None Drug Abuse: None - Past Medical History Cardiac Medical History: Reports: Hx Hypertension Renal/ Medical History: Denies: Hx Peritoneal Dialysis GI Medical History: Reports: Hx Gastroesophageal Reflux Disease Musculoskeltal Medical History: Reports Hx Musculoskeletal Trauma - chronic back pain Psychiatric Medical History: Reports: Hx Depression Past Surgical History: Reports: Hx Abdominal Surgery, Hx Cholecystectomy, Other - panniculectomy - Immunizations Immunizations up to date: No Hx Diphtheria, Pertussis, Tetanus Vaccination: No - UNKNOWN Physical Exam - Vital signs Vitals: Temp Pulse Resp BP Pulse Ox 96.8 F L 62 16 138/91 H 100 08/23/19 12:45 08/23/19 12:45 08/23/19 12:45 08/23/19 12:45 08/23/19 12:45 Course - Vital Signs Vital signs: Temp Pulse Resp BP Pulse Ox 96.8 F L 62 16 138/91 H 100 08/23/19 12:45 08/23/19 12:45 08/23/19 12:45 08/23/19 12:45 08/23/19 12:45
[2019-08-23 17:28] LABS: APPEARANCE,URINE CLEAR; BILIRUBIN,URINE NEGATIVE (NEGATIVE); COLOR,URINE STRAW; GLUCOSE, URINE NEGATIVE (NEGATIVE); KETONES,URINE NEGATIVE (NEGATIVE); LEUKOCYTE ESTERASE,URINE NEGATIVE (NEGATIVE); NITRITE,URINE NEGATIVE (NEGATIVE); PROTEIN,URINE NEGATIVE (NEGATIVE); URINE SPECIFIC GRAVITY 1.011; UROBILINOGEN,URINE NEGATIVE mg/dL (<2.0)
--- NOTE | 2019-08-23 17:50 | RADIOLOGY REPORT (SQ) ---
EXAM DESCRIPTION: PARANASAL SINUSES COMPLETED DATE/TIME: 08/23/2019 5:38 pm REASON FOR STUDY: pain, HARTMAN COMPARISON: None. NUMBER OF VIEWS: Three views. TECHNIQUE: Images of the paranasal sinuses acquired. LIMITATIONS: None. FINDINGS: ORBITS: No fracture. No foreign body. SINUSES: No mucosal thickening. No air fluid levels. FACIAL BONES: No fracture. OTHER: No other significant finding. IMPRESSION: NO FOREIGN BODY OR FRACTURE. NO PLAIN RADIOGRAPHIC EVIDENCE FOR SINUS DISEASE. TECHNICAL DOCUMENTATION: JOB ID: [id number] [place]-72 2010 [employer]- All Rights Reserved Reading location - IP/workstation name: [email or web address]
--- NOTE | 2019-08-23 18:06 | ER Document Report ---
ED General - General Chief Complaint: Headache Stated Complaint: HEADACHE Time Seen by Provider: 08/23/19 12:45 Mode of Arrival: Ambulatory Information source: Patient Notes: 43-year-old female with history of high blood pressure presents emergency department with complaints of headache around her eyes to the back of her head for the past 10 days. Reports she is taking [id number] medications without relief of symptoms. Denies fever vomiting diarrhea. Reports she is not taking anything for her blood pressure either. Patient reports nausea but is asking for something to eat. TRAVEL OUTSIDE OF THE [place] IN LAST 30 DAYS: No COUNTRY TRAVELED TO/FROM: [facility] - [facility] Onset: Other Onset/Duration: Persistent Quality of pain: Achy, Pressure Associated symptoms: Nausea Relieved by: Denies Similar symptoms previously: No Recently seen / treated by doctor: Yes - Related Data Allergies/Adverse Reactions: penicillin V Allergy (Severe, Verified 03/16/19 20:57) Anaphylaxis buspirone [From BuSpar] Adverse Reaction (Verified 03/16/19 20:57) Hives Past Medical History - General Information source: Patient - Social History Smoking Status: Unknown if Ever Smoked Frequency of alcohol use: None Drug Abuse: None Family History: Reviewed & Not Pertinent Patient has suicidal ideation: No Patient has homicidal ideation: No - Past Medical History Cardiac Medical History: Reports: Hx Hypertension Renal/ Medical History: Denies: Hx Peritoneal Dialysis GI Medical History: Reports: Hx Gastroesophageal Reflux Disease Musculoskeletal Medical History: Reports Hx Musculoskeletal Trauma - chronic back pain Psychiatric Medical History: Reports: Hx Depression Past Surgical History: Reports: Hx Abdominal Surgery, Hx Cholecystectomy, Other - panniculectomy - Immunizations Immunizations up to date: No Hx Diphtheria, Pertussis, Tetanus Vaccination: No - UNKNOWN Review of Systems - Review of Systems Notes: Review HPI for review of systems., All other systems negative Physical Exam - Vital signs Vitals: Temp Pulse Resp BP Pulse Ox 96.8 F L 62 16 138/91 H 100 08/23/19 12:45 08/23/19 12:45 08/23/19 12:45 08/23/19 12:45 08/23/19 12:45 - Notes Notes: PHYSICAL EXAMINATION: GENERAL: Well-appearing and in no acute distress HEAD: Atraumatic, normocephalic. EYES: Pupils equal round and reactive to light, extraocular movements intact, sclera anicteric, conjunctiva are normal. ENT: nares patent, oropharynx clear without exudates. Moist mucous membranes. NECK: Normal range of motion, supple without lymphadenopathy LUNGS: CTAB and equal. No wheezes rales or rhonchi. HEART: Regular rate and rhythm without murmurs ABDOMEN: Soft, no tenderness. No guarding, no rebound EXTREMITIES: Normal range of motion, no pitting edema. No cyanosis. NEUROLOGICAL: Cranial nerves grossly intact. Normal sensory/motor exams. PSYCH: Normal mood, normal affect. SKIN: Warm, Dry, normal turgor, no rashes or lesions noted Course - Re-evaluation Re-evalutation: 08/23/19 18:07 Laboratory 08/23/19 16:45 Urine Color STRAW Urine Appearance CLEAR Urine pH 7.0 Ur Specific Shafer 1.011 Urine Protein NEGATIVE Urine Glucose (UA) NEGATIVE Urine Ketones NEGATIVE Urine Blood NEGATIVE Urine Nitrite NEGATIVE Urine Bilirubin NEGATIVE Urine Urobilinogen NEGATIVE Ur Leukocyte Esterase NEGATIVE Urine WBC (Auto) 1 Urine Mucus (Auto) RARE Urine Ascorbic Acid NEGATIVE Urine HCG, Qual NEGATIVE Sinuses X-Ray 08/23/19 16:48 IMPRESSION: NO FOREIGN BODY OR FRACTURE. NO PLAIN RADIOGRAPHIC EVIDENCE FOR SINUS DISEASE. 08/23/19 18:41 Urinalysis unremarkable. Grullon' view negative for sinusitis. Patient instructed on lab and x-ray. She reports she is feeling better. Is eating crackers and drinking soda. Headache is almost gone. 08/23/19 19:48 Patient reports her headache is almost all gone. She was instructed on the importance of monitoring her diet. She was also instructed on the importance of follow-up with a primary care provider for evaluation of blood pressure. Patient voiced understanding to all instructions. - Vital Signs Vital signs: Temp Pulse Resp BP Pulse Ox 97.7 F 67 17 151/95 H 100 08/23/19 19:23 08/23/19 19:23 08/23/19 19:23 08/23/19 19:23 08/23/19 19:23 - Diagnostic Test Radiology reviewed: Reports reviewed Discharge - Discharge Clinical Impression: Nausea Headache Qualifiers: Headache type: unspecified Headache chronicity pattern: unspecified pattern Intractability: not intractable Qualified Code(s): R51 - Headache High blood pressure Qualifiers: Hypertension type: unspecified Qualified Code(s): I10 - Essential (primary) hypertension Condition: Stable Disposition: HOME, SELF-CARE Instructions: Antinausea Medication ([facility]), Use of Diphenhydramine, Headache ([facility]), High Blood Pressure ([facility]), Intravenous (IV) Fluids ([facility]), Reglan ([facility]), Toradol Injection ([facility]) Additional Instructions: *You have been evaluated for a headache and nausea, high blood pressure *Monitor your diet as discussed avoid salt, increase exercise *Take medication as prescribed *Push fluids *Benadryl as indicated *Follow up with a primary care provider within 1 week for recheck *Return to ED for worsening condition, changes, needs Forms: Elevated Blood Pressure
[2019-08-23] MEDS ORDERED: KETOROLAC TROMETHAMINE INJ/PF 30 MG/1 ML SDV IV ONE (18:08)
[2019-08-23 20:47] VITALS: BP 123/82
== END 2019-08-23 20:44 | disposition home or self-care (01) ==
LOC: ER 11:52
DX: R11.0 Nausea (principal); R51 Headache; I10 Essential (primary) hypertension; Z88.0 Allergy status to penicillin; Z90.49 Acquired absence of other specified parts of digestive tract
CPT/HCPCS: 99283; 96361; 96374; 96375; 81025; 81001; 70220; J1200; J1885; J2765; J7030